=== PATIENT | male | born 1935 | race Caucasian/White ===

== ENCOUNTER → 2017-02-22 | Outpatient (CLI) | payer MEDICARE, OTHER ==
[~2017-02-22] MED LIST: CHOL10003; CYCL10TA9 PO; DIPH25TA31 PO; DIPH50CA PO; DOCU100T7 PO; ENLP10T; EZET1TAB44; FEBU40TA PO; FURO-125 PO; FURO20TA4 PO; GABA-488 PO; HYDR-3448 PO; LEVO750T39 PO; LISI-556 PO; LISI5TAB PO; MAGN250T13 PO; OMEP40CA36 PO; OTC ANTACIDS; OXYC-12 PO; OXYC-471 PO; OXYCONTIN PO; PNT40TEC PO; RANI150T15 PO; VIT D; VITA1TAB78 PO; VITAMIN B1 PO; VITAMIN B3 PO; VITAMIN D PO
--- NOTE | 2017-02-22 13:58 | Diagnostic Imaging Report ---
PROCEDURE: MRI lumbar spine. TECHNIQUE: Multiplanar, multisequence MRI of the lumbar spine was performed without contrast. INDICATION: Chronic low back pain. Right leg pain. FINDINGS: There is grade 1 retrolisthesis of L5 over S1. The vertebral body heights are preserved. There is severe disc height loss at L4/L5 level. Significant disc desiccation is seen at most levels. The cauda equina and conus medullaris appear grossly unremarkable. T12/L1: There is a diffuse disc bulge with no central canal or lateral recess stenosis. No foraminal narrowing. L1/L2: There is a diffuse disc bulge and bilateral mild facet hypertrophy. No central canal or lateral recess stenosis. No foraminal stenosis. L2/L3: There is a diffuse disc bulge. There is moderate to severe central canal stenosis reducing the AP dimension of the canal to 5.7 mm and bilateral moderate lateral recess stenosis, more prominent on the left. The foramina demonstrate mild to moderate stenosis bilaterally. L3/L4: There is a diffuse disc bulge. There is severe spinal canal stenosis with the central canal AP dimension reduced to 5.5 mm. There is severe lateral recess stenosis bilaterally, worse on the left. Moderate to severe facet hypertrophy is seen. The foramina demonstrates bilateral mild to moderate stenosis. L4/L5: There is a diffuse disc bulge and bilateral moderate to severe facet hypertrophy. There is moderate spinal canal stenosis with reduced AP dimension of the canal to 6.4 mm. Bilateral severe lateral recess stenosis is seen. There is also bilateral foraminal stenosis of moderate to severe degree. L5/S1: There is grade 1 retrolisthesis and a diffuse disc bulge. There is mild facet hypertrophy. No significant central canal stenosis. There is bilateral lateral recess stenosis, severe on the right side and moderate to severe on the left. There is bilateral foraminal stenosis, severe on the right and moderate to severe on the left. IMPRESSION: L5/S1 grade 1 retrolisthesis. There are significant disc and facet degenerative changes with multilevel high-grade spinal canal and foraminal stenosis. Dictated by: Dictated on workstation # [id number]
== END ==
LOC: RAD 09:05
PROVIDERS: ATTEND Orthopaedic Surgery
DX: M51.35 Other intervertebral disc degeneration, thoracolumbar region (principal); M48.06 Spinal stenosis, lumbar region; M43.17 Spondylolisthesis, lumbosacral region
CPT/HCPCS: 72148

== ENCOUNTER 2017-03-08 14:40 | Emergency (ER) | payer MEDICARE, OTHER ==
[~2017-03-08] VITALS: Ht 175.3 cm; Wt 113.4 kg
--- NOTE | 2017-03-08 15:54 | Diagnostic Imaging Report ---
INDICATION: Injury, shoulder pain. Three views were obtained. EXAMINATION: Right shoulder. FINDINGS: There is no fracture, dislocation or acute bony abnormality evident. However, there is degenerative disease involving the glenohumeral joint and there is fairly severe degenerative changes involving the acromioclavicular joint. Furthermore, the space between the acromion and the humeral head has become narrowed and I do suspect that the rotator cuff is at least partially, if not completely, torn. If further evaluation of the rotator cuff is desired, then MRI would be recommended. The soft tissues are unremarkable. IMPRESSION: 1. There is no evidence for an acute bony abnormality. 2. The appearance of the shoulder joint does suggest that the rotator cuff is at least partially, if not completely, torn. Additional considerations as above. Dictated by: Dictated on workstation # [id number]
--- NOTE | 2017-03-08 16:43 | ED Upper Extremity ---
General Chief Complaint: Upper Extremity Stated Complaint: RIGHT ARM INJ;FALL Nursing Triage Note: AMB TO ROOM WAS PULLING WEEDS TODAY LOST BALANCE AND FELL ON R SHOULDER. Nursing Sepsis Screen: No Definite Risk Source: patient Exam Limitations: no limitations History of Present Illness Time seen by provider: 16:37 Initial Comments The patient is a 81-year-old white male who reports that earlier this afternoon he was outside and pulling on a limb on an embankment. He felt himself slipping and ultimately fell. He put his right arm out to catch himself. He did so and also struck his shoulder on concrete behind him. He immediately had pain. He had a rotator cuff surgery done by Dr. Richard izquierdo about 1 year ago. Pain/Injury Location: right shoulder Method of Injury: fell Modifying Factors: Improves With Jarring Allergies and Home Medications Allergies Coded Allergies: morphine (Verified Allergy, Unknown, EXTREME CONFUSION, 11/02/15) Home Medications Cyclobenzaprine HCl 10 Mg Tablet, 10 MG PO DAILY, (Reported) Gabapentin 300 Mg Capsule, 300 MG PO DAILY, (Reported) Levofloxacin 750 Mg Tablet, 750 MG PO DAILY@1100 for 4 Days Prescribed by: ANGEL DONATO on 11/04/15 1315 Lisinopril 5 Mg Tablet, 5 MG PO DAILY, (Reported) Ranitidine HCl 150 Mg Tablet, 150 MG PO DAILY, (Reported) [Vitamin D] , 2 TAB PO DAILY, (Reported) Constitutional: see HPI EENTM: no symptoms reported Respiratory: no symptoms reported Cardiovascular: no symptoms reported Gastrointestinal: no symptoms reported Genitourinary: no symptoms reported Musculoskeletal: see HPI Skin: no symptoms reported Psychiatric/Neurological: No Symptoms Reported Past Aimfprj-Fhlurk-Tggxly Hx Patient Social History Alcohol Use: Occasionally Uses Recreational Drug Use: No Smoking Status: Current Everyday Smoker Recent Foreign Travel: No Contact w/Someone Who Travel: No Recent Infectious Disease Expo: No Recent Hopitalizations: Yes Surgeries HX Surgeries: Yes (FINGER AMPUTATION, COLECTOMY, BLEEDING ULCER, ) Respiratory Hx Respiratory Disorders: No Cardiovascular Hx Cardiac Disorders: Yes Cardiac Disorders: Hypertension Neurological Hx Neurological Disorders: No Reproductive System Hx Reproductive Disorders: No Sexually Transmitted Disease: No Genitourinary Hx Genitourinary Disorders: No Gastrointestinal Hx Gastrointestinal Disorders: Yes (ULCERS, HX BOWEL OBSRUCTION-10YRS AGO) Gastrointestinal Disorders: Gastroesophageal Reflux Musculoskeletal Hx Musculoskeletal Disorders: No Endocrine Hx Endocrine Disorders: No HEENT HX ENT Disorders: Yes (WEARS GLASSES, TOP DENTURE) Loss of Vision: Bilateral Hearing Impairment: Denies Cancer Hx Cancer: No Psychosocial Hx Psychiatric Problems: No Integumentary HX Skin/Integumentary Disorder: No Blood Transfusions Hx Blood Disorders: No Adverse Reaction to a Blood Tr: No (HAD BLOOD WITH GI BLEED, NO PROBLEMS) Family Medical History Significant Family History: No Pertinent Family Hx Physical Exam Vital Signs Vital Sign - Last 12Hours 03/08/17 14:45 Temp 97.2 Pulse 73 Resp 18 Capillary Refill : Less Than 3 Seconds General Appearance: mild distress HEENT: normal ENT inspection Neck: full range of motion Cardiovascular: normal peripheral pulses, regular rate, rhythm, no edema, no gallop, no JVD, no murmur Respiratory: chest non-tender, lungs clear, normal breath sounds, no respiratory distress, no accessory muscle use Comments There is pain to passive range of motion both with anterior and posterior extension. The patient is able to hold his arm in abduction after is placed in a 90 abduction passively Progress/Results/Core Measures Results/Orders My Orders Orders - AMANDA NAIR MD Shoulder, Right, 3 Views (03/08/17 15:06) Vital Signs/I&O Vital Sign - Last 12Hours 03/08/17 14:45 Temp 97.2 Pulse 73 Resp 18 B/P (MAP) Departure Impression Impression: Primary Impression: right shoulder injury Disposition: 01 HOME, SELF-CARE Condition: Stable/Unchanged Departure-Patient Inst. Decision time for Depature: 16:42 Referrals: ANGEL DONATO MD (PCP/Family) Primary Care Physician Add. Discharge Instructions: All discharge instructions reviewed with patient and/or family. Voiced understanding. Use ice pack intermittently to right shoulder. Use your shoulder but let pain be your guide. Use Tylenol 650 for pain but no more than 4 doses daily If pain still a problem in 2 weeks you might consider seeing Dr. Dr. Ramos for reevaluation AMANDA NAIR MD Mar 08, 2017 16:43
[2017-03-08 16:45] VITALS: BP 145/70
== END 2017-03-08 16:50 | disposition home or self-care (01) ==
LOC: EDUNIT# 14:40 → ER 14:42
DX: S49.91XA Unspecified injury of right shoulder and upper arm, initial encounter (principal); I10 Essential (primary) hypertension; K21.9 Gastro-esophageal reflux disease without esophagitis; F17.200 Nicotine dependence, unspecified, uncomplicated; Z90.49 Acquired absence of other specified parts of digestive tract; Z87.19 Personal history of other diseases of the digestive system; Z89.029 Acquired absence of unspecified finger(s); W01.198A Fall on same level from slipping, tripping and stumbling with subsequent striking against other object, initial encounter
CPT/HCPCS: 73030; 99282

== ENCOUNTER → 2017-07-12 | Outpatient (CLI) | payer MEDICARE, OTHER | LOC: CARD 12:39 | PROVIDERS: ATTEND Physician Assistant | DX: I65.23 Occlusion and stenosis of bilateral carotid arteries (principal); I10 Essential (primary) hypertension; E78.2 Mixed hyperlipidemia; R06.02 Shortness of breath | CPT/HCPCS: 93306 ==

== ENCOUNTER → 2019-02-11 | Outpatient (CLI) | payer MEDICARE, OTHER ==
[~2019-02-11] MED LIST changes: +HOLD METFORMIN - RECEIVED CONTRAST 20 ML VIAL IV SCH; +IOHEXOL 350 MG/ML 100 ML (OMNIPAQUE 350) VIAL IV ONE; +NS 100 ML (IVPB) BAG IV ONE; -RANI150T15 PO; +RANI150T46 PO
--- NOTE | 2019-02-11 12:51 | Diagnostic Imaging Report ---
PROCEDURE: CT neck soft tissue with contrast. TECHNIQUE: Multiple contiguous axial images were obtained through the neck after the administration of contrast. Auto Exposure Controls were utilized during the CT exam to meet ALARA standards for radiation dose reduction. INDICATION: "Possible mass." Patient has history of smoking and neck pain, no description of any palpable abnormality on physical exam. The nasopharynx, the oropharynx and hypopharynx appeared unremarkable. The prevertebral and retropharyngeal spaces unremarkable. The parotid and submandibular glands as well as thyroid glands unremarkable. No cervical fluid collection. There are substantial atherosclerotic vascular calcifications about the common and internal carotid arterial systems. No fluid collection, no lymphadenopathy. No findings of hemorrhage or abscess. No airway narrowing, visualized apices and thoracic inlet nonacute. There is substantial degenerative changes of the cervical spine most severe at C4-5, C5-6 and C6-C7 levels with a grade 1 degenerative listhesis, hypertrophic facet arthrosis and at least moderate magnitude central canal and foraminal stenoses on a chronic osseous basis. IMPRESSION: No identifiable mass or adenopathy. 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 No airway embarrassment, fluid collection or acute finding. Dictated by: Dictated on workstation # [id number]
== END ==
LOC: RAD 11:37
PROVIDERS: ATTEND Internal Medicine
DX: M47.812 Spondylosis without myelopathy or radiculopathy, cervical region (principal); M48.02 Spinal stenosis, cervical region; M43.12 Spondylolisthesis, cervical region; I65.29 Occlusion and stenosis of unspecified carotid artery; Z87.891 Personal history of nicotine dependence
CPT/HCPCS: 70491

== ENCOUNTER → 2019-05-30 | Outpatient (CLI) | payer MEDICARE, OTHER ==
[~2019-05-30] MED LIST changes: -HOLD METFORMIN - RECEIVED CONTRAST 20 ML VIAL IV SCH; -IOHEXOL 350 MG/ML 100 ML (OMNIPAQUE 350) VIAL IV ONE; -NS 100 ML (IVPB) BAG IV ONE; +RANI-613 PO; -RANI150T46 PO
--- NOTE | 2019-05-30 18:29 | Diagnostic Imaging Report ---
PROCEDURE: CT head without contrast. TECHNIQUE: Multiple contiguous axial images were obtained through the brain without the use of intravenous contrast. Auto Exposure Controls were utilized during the CT exam to meet ALARA standards for radiation dose reduction. DATE: May 30, 2019. COMPARISON: CT head August 09, 2015. INDICATION: 83-year-old male, cognitive decline. FINDINGS: There is proportional prominence of the ventricles and CSF spaces consistent with mild to moderate cerebral volume loss. There is no mass effect or midline shift. There is no acute intracranial hemorrhage. There is no abnormal extra-axial fluid collection. The visualized portions of the paranasal sinuses, mastoid air cells and middle ears are well aerated. IMPRESSION: 1. Mild to moderate cerebral volume loss. 2. No identified acute intracranial abnormality. Dictated on workstation # [id number]
== END ==
LOC: RAD 15:17
PROVIDERS: ATTEND Internal Medicine
DX: G93.89 Other specified disorders of brain (principal); R41.81 Age-related cognitive decline
CPT/HCPCS: 70450

== ENCOUNTER → 2019-06-26 | Outpatient (CLI) | payer MEDICARE, OTHER ==
[2019-06-26 14:06] LABS: ALBUMIN 4.1 GM/DL (3.2-4.5); BILIRUBIN,TOTAL 0.6 MG/DL (0.1-1.0); CALCIUM 9.6 MG/DL (8.5-10.1); CREATININE SERUM 1.16 MG/DL (0.60-1.30); POTASSIUM 4.4 MMOL/L (3.6-5.0); TOTAL PROTEIN 6.1 GM/DL (6.4-8.2)
== END ==
LOC: LAB 13:30
PROVIDERS: ATTEND Internal Medicine Cardiovascular Disease
DX: E78.2 Mixed hyperlipidemia (principal); N42.9 Disorder of prostate, unspecified; R07.9 Chest pain, unspecified; R06.02 Shortness of breath
CPT/HCPCS: 36415; 80053; 80061; 84153

== ENCOUNTER → 2019-10-02 | Outpatient (CLI) | payer MEDICARE, OTHER | LOC: CARD 09:28 | PROVIDERS: ATTEND Physician Assistant | DX: I08.2 Rheumatic disorders of both aortic and tricuspid valves (principal); I10 Essential (primary) hypertension; E78.2 Mixed hyperlipidemia | CPT/HCPCS: 93306 ==

== ENCOUNTER → 2019-12-08 | Outpatient (CLI) | payer MEDICARE, OTHER ==
--- NOTE | 2019-12-08 12:29 | Diagnostic Imaging Report ---
CLINICAL INDICATION: Patient states he has low back pain with no known injury. EXAM: MRI of the lumbar spine performed without IV contrast. Sequences include sagittal T2, sagittal T1, sagittal T2 fat sat, coronal T2, and axial T2. COMPARISON: MRI of the lumbar spine without contrast dated 02/22/2017. FINDINGS: There is no acute lumbar spine fracture. There is Modic type I displaced changes involving the L2-L3 and L4-L5 levels. There are hypertrophic spurs and facet arthropathy involving the lumbar spine. The visualized portions of the distal thoracic spinal cord, conus medullaris, and cauda equina nerve roots are unremarkable. The conus medullaris tip is seen at the lower L1 vertebral body level. There is no significant paraspinal soft tissue abnormality. There is interval increased size of a cystic structure involving the posterior aspect of the upper to mid right kidney which currently measures 1.5 cm compared to the prior study, previously measured 7 mm. There is now low T2 signal along the periphery which may represent calcification or complexity. T12-L1: Stable minimal posterior disc bulge. There is no significant central spinal canal or neural foramen narrowing. L1-L2: Stable diffuse disc bulge with disc spurs extending posteriorly and into the foraminal regions bilaterally. There is stable [id number] bilateral neural foramen narrowing and mild central canal narrowing. L2-L3: Stable diffuse disc bulge with moderate loss of disc space height. There are stable disc spurs extending posteriorly and into the foraminal regions bilaterally. There is stable moderate bilateral facet arthropathy/hypertrophy and ligamentum flavum buckling. There is stable severe central canal stenosis and stable severe bilateral neural foramen narrowing. L3-L4: Stable diffuse disc bulge with disc spurs extending posteriorly and into the foraminal regions bilaterally. There is severe bilateral facet arthropathy/hypertrophy and ligamentum flavum buckling. There is stable severe central canal stenosis and bypmeovj-ih-[id number] bilateral neural foramen narrowing. L4-L5: Stable diffuse disc bulge with severe loss of disc space height. There is stable disc spurs extending posteriorly and into the foraminal regions bilaterally. There is stable severe bilateral facet arthropathy and ligamentum flavum buckling. There are stable severe central canal stenosis and severe bilateral neural foramen narrowing. L5-S1: Again seen diffuse disc bulge with slightly increased size of the disc spurs extending into the foraminal regions bilaterally. There is stable moderate bilateral facet arthropathy. There is no significant central canal narrowing. There is severe bilateral neural foramen narrowing which has progressed. IMPRESSION: 1: There is progression of severe degenerative disc disease at the L5-S1 level with diffuse disc bulge, disc spurs, and facet arthropathy. There is severe L5-S1 bilateral neural foramen narrowing which has progressed. 2: The remainder of the severe lumbar spine degenerative disc disease otherwise is not significantly changed in interim. 3: There is progression of slight complexity and increased size of a cyst involving the mid to upper portion of the right kidney. There is progression of peripheral low T2 signal which may represent calcification or proteinaceous material. Ultrasound of the kidneys would better evaluate. Dictated by: Dictated on workstation # [id number]
== END ==
LOC: RAD 09:44
PROVIDERS: ATTEND Nurse Practitioner
DX: M47.816 Spondylosis without myelopathy or radiculopathy, lumbar region (principal); M51.37 Other intervertebral disc degeneration, lumbosacral region
CPT/HCPCS: 72148

== ENCOUNTER 2023-02-15 11:03 | Inpatient (IN) | payer MEDICARE, OTHER ==
[2023-02-15] VITALS (12 sets, daily range): BP systolic 70–111; BP diastolic 33–84
[~2023-02-15] VITALS: Ht 172 cm; Wt 62.8 kg
[~2023-02-15 11:03] MED LIST changes: +CYCL10TA25 PO; -CYCL10TA9 PO; -DIPH50CA PO; +DIPH50CA33 PO; +LEVO750T PO; -LEVO750T39 PO; -LISI-556 PO; +LISI5TAB20 PO; -OXYC-471 PO; +OXYC1TAB11 PO
--- NOTE | 2023-02-15 11:35 | ED General ---
General Chief Complaint: General Problems/Pain Stated Complaint: ALTERED MENTAL STATUS Nursing Triage Note: PT TO ED BY [facility] WITH C/O WEAKNESS. EMS REPORTS PT HAS BEEN WEAK TODAY AND HAS HAD BLACK TARRY STOOLS. EMS REPORTS PT WENT UNRESPONSIVE WHILE TRANSFERRING FROM LAWN CHAIR TO CART AND REMAINED UNRESPONSIVE FOR APPROX 10 MIN. PT HAS HX DEMENTIA. PT DENIES ABD PAIN, STATES HE FEELS "OUT OF IT." Source of Information: Family () Exam Limitations: Other (dementia) History of Present Illness Date Seen by Provider: Feb 15, 2023 Time Seen by Provider: 11:18 Initial Comments Juan Ramon is an 87-year-old male who presents to the emergency department by ambulance from home chief complaint of generalized weakness and a period of unresponsiveness this afternoon. He apparently has significant dementia and is unable to provide any HPI, review of systems, past medical family or social history. He does have a history of COPD and is on chronic oxygen supplementation. He is currently complaining of primarily left wrist pain and is in a Velcro wrist splint. This reports the patient was outside and moving to another chair and had about 10 minutes of poor responsiveness. He is alert on arrival and doing his best to answer questions but is quite confused. He is significantly pale. He is not tachycardic but is hypotensive with a systolic blood pressure in the 80s. Heart is regular, he has significant cardiac murmur. Abdomen is soft, nondistended. No obvious outward signs of trauma other than the brace to the left wrist. The brace was removed and he has tenderness with this as well as ecchymosis and swelling to the volar R distal left forearm. Multiple superficial healing abrasions to the hand. His arrived after his arrival. She provides further history that he is always significantly confused with very poor short-term memory. She actually reported a fall that occurred yesterday however on calling the orthopedic office where the patient was seen this was on February 07. The was uncertain if he actually had a break in his arm or not. Reviewing the medical record the patient actually sustained a nondisplaced fracture of the distal left radius. She states that he has had very black stools in the last 24 hours. He does take ibuprofen/Tylenol. He is not on chronic anticoagulation. No reported vomiting. The patient is not an alcoholic. He has smoked for a very long time and uses breathing treatments at home. Oxygen dependent. No known history of coronary artery disease. He has had prior abdominal surgery, hernia repair as well as partial colectomy. Timing/Duration: 4-6 Hours Severity: Severe Associated Systoms: Malaise, Weakness Allergies and Home Medications Allergies Coded Allergies: morphine (Verified Allergy, Unknown, EXTREME CONFUSION, 11/02/15) Patient Home Medication List Home Medication List Reviewed: Yes Cyclobenzaprine HCl (Cyclobenzaprine HCl) 10 Mg Tablet, 10 MG PO DAILY, (Reported) Entered as Reported by: VILLA DELGADO on 05/24/15 1149 Gabapentin (Gabapentin) 300 Mg Capsule, 300 MG PO DAILY, (Reported) Entered as Reported by: EDUARDO RETANA on 11/02/15 1634 Levofloxacin (Levofloxacin) 750 Mg Tablet, 750 MG PO DAILY@1100 Prescribed by: ANGEL DONATO on 11/04/15 1315 Lisinopril (Lisinopril) 5 Mg Tablet, 5 MG PO DAILY, (Reported) Entered as Reported by: EDUARDO RETANA on 11/02/15 1634 Ranitidine HCl (Zantac) 150 Mg Tablet, 150 MG PO DAILY, (Reported) Entered as Reported by: EDUARDO RETANA on 11/02/15 1638 [Vitamin D] , 2 TAB PO DAILY, (Reported) Entered as Reported by: EDUARDO RETANA on 11/02/15 1634 Review of Systems Review of Systems Constitutional: see HPI EENTM: no symptoms reported Respiratory: no symptoms reported Cardiovascular: other (cough (chronic)) Gastrointestinal: melena (per ) Genitourinary: no symptoms reported Musculoskeletal: joint pain (left wrist) Skin: no symptoms reported Psychiatric/Neurological: Other ("out of it") All Other Systems Reviewed Negative Unless Noted: Yes Past Mcpabxg-Rwokum-Jdfqyv Hx Past Medical History Surgeries: Yes (FINGER AMPUTATION, COLECTOMY, BLEEDING ULCER, ) Respiratory: No Cardiac: Yes Hypertension Neurological: No Reproductive Disorders: No Sexually Transmitted Disease: No Gastrointestinal: Yes (ULCERS, HX BOWEL OBSRUCTION-10YRS AGO) Gastroesophageal Reflux Musculoskeletal: No Endocrine: No Loss of Vision: Bilateral Hearing Impairment: Denies Cancer: No Psychosocial: No Integumentary: No Blood Disorders: No Adverse Reaction/Blood Tranf: No (HAD BLOOD WITH GI BLEED, NO PROBLEMS) Family Medical History No Pertinent Family Hx Physical Exam Vital Signs Vital Signs - First Documented 02/15/23 11:05 Temp 35.1 Pulse 67 Resp 18 B/P (MAP) 84/41 (55) Pulse Ox 100 O2 Delivery Nasal Cannula O2 Flow Rate 4.00 Capillary Refill : Height, Weight, BMI Height: 5'9.00" Weight: 250lbs. 3.0oz. 113.099339nk; 20.00 BMI Method:Stated General Appearance: No Apparent Distress, Chronically ill, Thin Eyes: Bilateral Eye Conjunctivae Pale HEENT: PERRL/EOMI, Pale Conjunctivae (L), Pale Conjunctivae (R), Other (dry mucosa) Neck: Normal Inspection Respiratory: No Accessory Muscle Use, No Respiratory Distress, Decreased Breath Sounds, Other (coarse wet cough; no distress) Cardiovascular: Regular Rate, Rhythm, Systolic Murmur Gastrointestinal: Normal Bowel Sounds, Non Tender, Soft Rectal: Normal Rectal Tone, Black Stool, Other (no masses or tenderness) Genital/Rectal: Normal Genital Exam Back: Normal Inspection Extremity: Normal Inspection, Normal Range of Motion, Other (left wrist in velcro brace; multiple superficial abrasions to volar left wrist with ecchymoses) Neurologic/Psychiatric: Alert, No Motor/Sensory Deficits, Normal Mood/Affect, Disoriented, Other (confused; repeatedly asking questions "what happened"; poor memory) Skin: Warm/Dry, Pallor Progress/Results/Core Measures Suspected Sepsis SIRS Temperature: Pulse: 67 Respiratory Rate: 18 Blood Pressure 84 /41 Mean: 55 Laboratory Tests 02/15/23 11:16: Creatinine 1.44H, Total Bilirubin 0.3 Results/Orders Lab Results Laboratory Tests Test 02/15/23 11:16 Range/Units White Blood Count 11.7 H 4.3-11.0 10^3/uL Red Blood Count 1.35 L 4.30-5.52 10^6/uL Hemoglobin 4.6 *L 13.3-17.7 g/dL Hematocrit 15 *L 40-54 % Mean Corpuscular Volume 112 H 80-99 fL Mean Corpuscular Hemoglobin 34 25-34 pg Mean Corpuscular Hemoglobin Concent 31 L 32-36 g/dL Red Cell Distribution Width 14.0 10.0-14.5 % Platelet Count 145 130-400 10^3/uL Mean Platelet Volume 12.1 9.0-12.2 fL Immature Granulocyte % (Auto) 1 % Neutrophils (%) (Auto) 83 H 42-75 % Lymphocytes (%) (Auto) 12 12-44 % Monocytes (%) (Auto) 4 0-12 % Eosinophils (%) (Auto) 0 0-10 % Basophils (%) (Auto) 0 0-10 % Neutrophils # (Auto) 9.7 H 1.8-7.8 10^3/uL Lymphocytes # (Auto) 1.3 1.0-4.0 10^3/uL Monocytes # (Auto) 0.5 0.0-1.0 10^3/uL Eosinophils # (Auto) 0.0 0.0-0.3 10^3/uL Basophils # (Auto) 0.0 0.0-0.1 10^3/uL Immature Granulocyte # (Auto) 0.1 0.0-0.1 10^3/uL Sodium Level 144 135-145 MMOL/L Potassium Level 4.7 3.6-5.0 MMOL/L Chloride Level 113 H 98-107 MMOL/L Carbon Dioxide Level 14 L 21-32 MMOL/L Anion Gap 17 H 5-14 MMOL/L Blood Urea Nitrogen 113 *H 7-18 MG/DL Creatinine 1.44 H 0.60-1.30 MG/DL Estimat Glomerular Filtration Rate 48 BUN/Creatinine Ratio 78 Glucose Level 148 H 70-105 MG/DL Calcium Level 8.8 8.5-10.1 MG/DL Corrected Calcium 9.4 8.5-10.1 MG/DL Total Bilirubin 0.3 0.1-1.0 MG/DL Aspartate Amino Transf (AST/SGOT) 35 H 5-34 U/L Alanine Aminotransferase (ALT/SGPT) 27 0-55 U/L Alkaline Phosphatase 68 40-136 U/L Total Protein 4.8 L 6.4-8.2 GM/DL Albumin 3.2 3.2-4.5 GM/DL My Orders Orders - BERRY MAX MD Ed Iv/Invasive Line Start (02/15/23 11:30) Cbc With Automated Diff (02/15/23 11:30) Comprehensive Metabolic Panel (02/15/23 11:30) Type And Screen (02/15/23 11:30) Fecal Occult Bedside (02/15/23 11:30) Ua Culture If Indicated (02/15/23 11:30) Chest 1 View, Ap/Pa Only (02/15/23 11:30) Wrist, Right, 3 Views Or More (02/15/23 11:35) Red Cells Leukocytes Reduced (02/15/23 11:54) Pantoprazole Injection (Protonix Injecti (02/15/23 12:15) Ns (Ivpb) 100 Ml (S... W/Pantoprazole In (02/15/23 12:15) Ns Iv 500 Ml (Sodium Chloride 0.9%) (02/15/23 12:16) Vital Signs/I&O 02/15/23 02/15/23 02/15/23 02/15/23 11:05 12:24 12:29 12:33 Temp 35.1 35.8 35.8 35.9 Pulse 67 69 67 68 Resp 18 20 20 20 B/P (MAP) 84/41 (55) 84/62 95/36 82/33 Pulse Ox 100 98 100 100 O2 Delivery Nasal Cannula Nasal Cannula Nasal Cannula Nasal Cannula O2 Flow Rate 4.00 4.00 4.00 4.00 02/15/23 02/15/23 02/15/23 12:39 13:41 13:46 Temp 35.9 35.8 Pulse 65 65 70 Resp 19 20 19 B/P (MAP) 70/35 111/84 91/47 Pulse Ox 100 99 99 O2 Delivery Nasal Cannula Nasal Cannula Nasal Cannula O2 Flow Rate 4.00 4.00 4.00 Capillary Refill : Blood Pressure Mean: 55 Progress Note #1: Time: 11:56 Progress Note NOtified of Hgb of 4 and Hct of 15 by LUZ Pantoja Progress Note #2: Time: 12:15 Progress Note Seen and evaluated by me. Evaluation today includes physical exam, CBC, type and screen, Chem-12, UA, single view chest x-ray, x-rays of the left wrist, fecal occult blood testing, coags. Pertinent physical exam findings elderly appearing frail gentleman in no acute distress. He is confused with poor memory. He is hypotensive with a systolic blood pressure in the 80s, pulse in the 70s. He is oxygen supplemented at 3 L with 96% oxygen saturations. He is afebrile. He has significantly pale conjunctive a, fairly dry oral mucosa. Heart is regular with a loud holosystolic murmur. He has a coarse wet cough with diminished breath sounds at the bases no active wheezing. No respiratory distress. Abdomen is soft and nontender. Rectal exam reveals copious amounts of black stool at the rectum that is Hemoccult positive. No lower extremity edema. He is wearing a left Velcro wrist splint with swelling to the wrist abrasions on the hand and ecchymosis on the distal volar aspect of the wrist. He is neurovascularly intact to the left hand. Differential diagnosis profound anemia, GI bleed, concern for acute renal failure, dehydration, left wrist fracture Labs, imaging independently reviewed and interpreted by me. The patient CBC shows WBC of 11.7, Hgb 4.6 with RBC of 1.35. Hct is 15. Platelets are 145. 83% neutrophils. A sodium of 144, potassium of 4.7. Chloride 113 bicarb 14, BUN 113, creatinine 1.44 glucose of 148. His anion gap is 17. AST 35. PT 16.2 INR 1.3 PTT 29. His urine is clear of infection. His chest x-ray shows an abnormal density in the right apex per radiology read. His left wrist x-ray shows a nondisplaced distal radius fracture. Patient is treated in the emergency department with IV normal saline followed by type-specific blood transfusion. He responded well to fluids and blood with a systolic blood pressure in the 90s at admission. IV protonix bolus and drip started. I discussed the case with Dr. Anahy zapien for general surgery who will consult regarding GI bleed. Case was also discussed with Dr. Lennie zapien for the hospitalist service who will monitor the patient and manage the patient in the ICU. Spoke with the patient and his regarding resuscitative measures, the patient states "I am not ready to yet" and desires to remain a full code. Diagnostic Imaging Diagonstic Imaging: Xray Comments [facility] [place], [place] NAME: JUAN RAMON URIAS [facility] REC#: [id number] PT STATUS: ADM IN : 1935 PHYSICIAN: BERRY MAX MD ADMIT DATE: 02/15/23/ICU Signed Date of Exam:02/15/23 WRIST, RIGHT, 3 VIEWS OR MORE INDICATION: Wrist pain. FINDINGS: There is an oblique fracture through the distal radius. This is minimally displaced. There are degenerative changes at the base of the first metacarpal. There is no other fracture or dislocation. IMPRESSION: Minimally displaced oblique fracture through the distal radius. Additionally, there is some degenerative change at the base of the first metacarpal. Dictated by: Dictated on workstation # [id number] Dict: 02/15/23 1203 Trans: 02/15/23 1548 [id number] Interpreted by: JUAN RAMON FALL MD Electronically signed by: JUAN RAMON FALL MD 02/15/23 1548 Diagonstic Imaging: Xray Comments [facility] [place], [place] NAME: JUAN RAMON URIAS [facility] REC#: [id number] PT STATUS: ADM IN : 1935 PHYSICIAN: BERRY MAX MD ADMIT DATE: 02/15/23/ICU Signed Date of Exam:02/15/23 CHEST 1 VIEW, AP/PA ONLY INDICATION: Weakness. COMPARISON: Exam is compared with a chest x-ray 11/02/2015. FINDINGS: There is increased abnormal density at the right pulmonary apex. This is a change from prior. While this may reflect apical pneumonia, it warrants radiographic follow-up to confirm resolution as mass having developed could not be excluded. Hilar and mediastinal contours are normal. Previously, there was a left lower lobe and lingular infiltrate that has resolved. No failure pattern. No pneumothorax. IMPRESSION: 1. New abnormal density in the right pulmonary apex; this may reflect an acute infiltrate. The change itself is felt to warrant radiographic follow-up. Repeat exam within two weeks' time to confirm its resolution recommended. 2. No other abnormality with interval resolution of a prior left basilar pneumonia. Dictated by: Dictated on workstation # [id number] Dict: 02/15/23 1158 Trans: 02/15/23 1428 [id number] Interpreted by: JOSÉ MIGUEL RIVERA Electronically signed by: JOSÉ MIGUEL RIVERA 02/15/23 1428 Critical Care Note Critical Care Start Time: 11:18 Stop Time: 13:00 Total Time (minutes) 40min critical care time in the eval and management of this elderly hypotensive male who is anemic. Time includes initial eval and management of hypotension with fluid resuscitation; review and interpretation of labs; blood transfusions and monitoring. Serial re-evaluations; review of old medical record. Discussion with outside provider (for orthopedic history). Discussion with Dr Higginbotham (gener al surgery) and Dr Hogue (hospitalist). Discussions with family. Departure Communication (Admissions) Time/Spoke to Admitting Phy: 12:[address] Hogue (hospitalist) Time/Spoke to Consulting Phy: 12:[address] Higginbotham (surgery) Impression Primary Impression: GI bleed Qualified Codes: K92.2 - Gastrointestinal hemorrhage, unspecified Additional Impressions: Anemia Qualified Codes: D64.9 - Anemia, unspecified COPD (chronic obstructive pulmonary disease) Qualified Codes: J44.9 - Chronic obstructive pulmonary disease, unspecified Disposition: ADMITTED INPATIENT Condition: Critical Admissions Decision to Admit Reason: Admit from ER (General) Decision to Admit/Date: Feb 15, 2023 Time/Decision to Admit Time: 11:56 Departure-Patient Inst. Referrals: ANGEL DONATO MD (PCP/Family) Primary Care Physician Copy Copies To 1: ANGEL DONATO MD, KATHRYN M MD Feb 15, 2023 11:35
[2023-02-15 11:36] LABS: BASOPHILS % (AUTO) 0 % (0-10); EOSINOPHILS % (AUTO) 0 % (0-10); LYMPHOCYTES # (AUTO) 1.3 10^3/uL (1.0-4.0); LYMPHOCYTES % (AUTO) 12 % (12-44); MEAN CORPUSCULAR HEMOGLOBIN 34 pg (25-34); MEAN CORPUSCULAR HGB CONC 31 g/dL (32-36); MEAN CORPUSCULAR VOLUME 112 fL (80-99); MEAN PLATELET VOLUME 12.1 fL (9.0-12.2); MONOCYTES # (AUTO) 0.5 10^3/uL (0.0-1.0); MONOCYTES % (AUTO) 4 % (0-12); NEUTROPHILS # (AUTO) 9.7 10^3/uL (1.8-7.8); NEUTROPHILS % (AUTO) 83 % (42-75); PLATELET COUNT 145 10^3/uL (130-400); WHITE BLOOD COUNT 11.7 10^3/uL (4.3-11.0)
[2023-02-15 11:40] LABS: ALBUMIN 3.2 GM/DL (3.2-4.5); HEMATOCRIT 15 % (40-54); HEMOGLOBIN 4.6 g/dL (13.3-17.7); POTASSIUM 4.7 MMOL/L (3.6-5.0)
[2023-02-15 11:41] LABS: CALCIUM 8.8 MG/DL (8.5-10.1)
[2023-02-15 11:42] LABS: TOTAL PROTEIN 4.8 GM/DL (6.4-8.2)
[2023-02-15 11:44] LABS: BILIRUBIN,TOTAL 0.3 MG/DL (0.1-1.0)
[2023-02-15 11:46] LABS: CREATININE SERUM 1.44 MG/DL (0.60-1.30)
--- NOTE | 2023-02-15 12:07 | Diagnostic Imaging Report ---
INDICATION: Wrist pain. FINDINGS: There is an oblique fracture through the distal radius. This is minimally displaced. There are degenerative changes at the base of the first metacarpal. There is no other fracture or dislocation. IMPRESSION: Minimally displaced oblique fracture through the distal radius. Additionally, there is some degenerative change at the base of the first metacarpal. Dictated by: Dictated on workstation # [id number]
--- NOTE | 2023-02-15 12:12 | Diagnostic Imaging Report ---
INDICATION: Weakness. COMPARISON: Exam is compared with a chest x-ray 11/02/2015. FINDINGS: There is increased abnormal density at the right pulmonary apex. This is a change from prior. While this may reflect apical pneumonia, it warrants radiographic follow-up to confirm resolution as mass having developed could not be excluded. Hilar and mediastinal contours are normal. Previously, there was a left lower lobe and lingular infiltrate that has resolved. No failure pattern. No pneumothorax. IMPRESSION: 1. New abnormal density in the right pulmonary apex; this may reflect an acute infiltrate. The change itself is felt to warrant radiographic follow-up. Repeat exam within two weeks' time to confirm its resolution recommended. 2. No other abnormality with interval resolution of a prior left basilar pneumonia. Dictated by: Dictated on workstation # [id number]
[2023-02-15] MEDS ORDERED: PANTOPRAZOLE INJECTION 200 MG in NS (IVPB) 100 ML 100 ML IV SCH (12:15)
[2023-02-15] MEDS ORDERED: PANTOPRAZOLE 40 MG (PROTONIX) VIAL IV ONE (12:15)
[2023-02-15] MEDS ORDERED: NS IV 500 ML 500 ML ONE ×2 (12:16→14:00)
[2023-02-15] MEDS ORDERED: fentaNYL INJECTION 100 MCG/2 ML VIAL IV PRN (14:15)
[2023-02-15] MEDS ORDERED: ONDANSETRON 4 MG/2 ML (SDV) Z0FRAN IV PRN (14:15)
[2023-02-15] MEDS ORDERED: RT-ALBUTEROL SULF 2.5 MG/3 ML PRE-MIX VIAL INH PRN (14:15)
--- NOTE | 2023-02-15 14:57 | History & Physical-Hospitalist ---
History of Present Illness HPI/Chief Complaint Patient is an 87-year-old male with past medical history of dementia who presents to the emergency department due to syncope. He is unable to provide much history and defers to his . He has no complaints at this time. His states that he fell 2 days ago she believes. He has been getting more weak and she thought this was due to his back pain. He had a syncopal episode this morning so decided to bring him in for evaluation. In the emergency department he was found to have a hemoglobin of 4.6 and was having black tarry stools. His is unaware how long this has been going on but did notice darker stools this morning. He is unable to tell me when this started. He does not believe he has ever had a colonoscopy. He also tells me he has had no surgeries though he has 2 large surgical scars on his abdomen. When asked about these he is unable to recall what surgeries he has had. He was given 2 units of blood and was admitted to the ICU for further management. Source: patient, family Exam Limitations: clinical condition Date Seen 02/15/23 Time Seen by a Provider: 14:41 Attending Physician Brant Moreno MD PCP Admitting Physician: Chet Hogue MD Attending Physician: Chet Hogue MD Referring Physician Date of Admission Feb 15, 2023 at 13:47 Home Medications & Allergies Home Medications Reviewed patient Home Medication Reconciliation performed by pharmacy medication reconciliations automated access systems technician and/or nursing. Patients Allergies have been reviewed. Allergies Allergies Coded Allergies morphine (Verified Allergy, Unknown, EXTREME CONFUSION, 11/02/15) Past Etvjhfe-Lrwkzr-Jwyhsr Hx Patient Social History Marrital Status: Employed/Student: retired Tobacco Use?: Yes Tobacco type used: Cigarettes Smoking Status: Current Everyday Smoker Use of E-Cig and/or Vaping dev: No Substance use?: No Alcohol Use?: No Pt feels they are or have been: No Immunizations Up To Date First/Initial COVID19 Vaccinat: X2 Current Status Advance Directives: No Communicates: Verbally Primary Language: Armenian Preferred Spoken Language: Armenian Is interpretation needed?: No Past Medical History Surgeries: Abdominal Hypertension Sexually Transmitted Disease: No Gastroesophageal Reflux Loss of Vision: Bilateral Hearing Impairment: Denies Blood Disorders: No Adverse Reaction/Blood Tranf: No (HAD BLOOD WITH GI BLEED, NO PROBLEMS) Family Medical History Reviewed Nursing Family Hx No Pertinent Family Hx Review of Systems Constitutional: see HPI Physical Exam Physical Exam Vital Signs Vital Signs - First Documented 02/15/23 11:05 Temp 35.1 Pulse 67 Resp 18 B/P (MAP) 84/41 (55) Pulse Ox 100 O2 Delivery Nasal Cannula O2 Flow Rate 4.00 Capillary Refill : Height, Weight, BMI Height: 5'9.00" Weight: 250lbs. 3.0oz. 113.001463yv; 20.00 BMI Method:Stated General Appearance: No Apparent Distress, Chronically ill, Thin Respiratory: Lungs Clear, No Respiratory Distress Cardiovascular: Regular Rate, Rhythm, No Murmur Gastrointestinal: Normal Bowel Sounds, Soft, Other (midline surgical scar on abd and linear scar in RLQ) Extremity: No Calf Tenderness, No Pedal Edema Neurologic/Psychiatric: Alert, Other (oriented to person and place- pleasasntly confused otherwise) Results Results/Procedures Labs Laboratory Tests 02/15/23 11:16 02/15/23 16:17 02/15/23 22:00 02/16/23 05:00 Patient resulted labs reviewed. Imaging: Reviewed Imaging Report Imaging [facility] [place], [place] NAME: SAMUEL URIAS [facility] REC#: [id number] PT STATUS: ADM IN : 1935 PHYSICIAN: BERRY MAX MD ADMIT DATE: 02/15/23/ICU Signed Date of Exam:02/15/23 CHEST 1 VIEW, AP/PA ONLY INDICATION: Weakness. COMPARISON: Exam is compared with a chest x-ray 11/02/2015. FINDINGS: There is increased abnormal density at the right pulmonary apex. This is a change from prior. While this may reflect apical pneumonia, it warrants radiographic follow-up to confirm resolution as mass having developed could not be excluded. Hilar and mediastinal contours are normal. Previously, there was a left lower lobe and lingular infiltrate that has resolved. No failure pattern. No pneumothorax. IMPRESSION: 1. New abnormal density in the right pulmonary apex; this may reflect an acute infiltrate. The change itself is felt to warrant radiographic follow-up. Repeat exam within two weeks' time to confirm its resolution recommended. 2. No other abnormality with interval resolution of a prior left basilar pneumonia. Dictated by: Dictated on workstation # [id number] Dict: 02/15/23 1158 Trans: 02/15/23 1428 [id number] Interpreted by: JOSÉ MIGUEL RIVERA Electronically signed by: JOSÉ MIGUEL RIVERA 02/15/23 1428 [facility] [place], [place] NAME: SAMUEL URIAS [facility] REC#: [id number] PT STATUS: REG ER : 1935 PHYSICIAN: BERRY MAX MD ADMIT DATE: 02/15/23/ER Draft Date of Exam:02/15/23 WRIST, RIGHT, 3 VIEWS OR MORE INDICATION: Wrist pain. FINDINGS: There is an oblique fracture through the distal radius. This is minimally displaced. There are degenerative changes at the base of the first metacarpal. There is no other fracture or dislocation. IMPRESSION: Minimally displaced oblique fracture through the distal radius. Additionally, there is some degenerative change at the base of the first metacarpal. Dictated on workstation # [id number] Dict: 02/15/23 1203 Trans: 02/15/23 1206 [id number] Interpreted by: SAMUEL FALL MD Electronically signed by: Assessment/Plan Admission Diagnosis Hemorrhagic Shock Admission Status: Inpatient Order (span 2 midnights) Reason for Inpatient Admission: see below Assessment and Plan Hemorrhagic Shock GI Bleed- likely upper HTN SBP 70s in ER Continue IVF Hgb 4.6 2 units pRBCs ordered and 1 for hold Surgery consulted EGD tomorrow PPI Hold home BP meds Radius fracture minimally displaced oblique fracture Spoke with Ortho Outpatient follow up Abnormal chest x-ray new abnormal density in right apex Needs follow up in 2 weeks Dementia No acute needs CHET HOGUE MD Feb 15, 2023 14:57
[2023-02-15] MEDS ORDERED: NICOTINE 21 MG (NICODERM) PATCH TD NR (15:30)
[2023-02-15] MEDS: RT-ALBUTEROL SULF 2.5 MG/3 ML PRE-MIX VIAL INH SCH ×2 (15:39→21:18)
[2023-02-15 15:41] LABS: BILIRUBIN,URINE NEGATIVE (NEGATIVE); CLARITY,URINE CLEAR; COLOR,URINE YELLOW; GLUCOSE, URINE (UA) NEGATIVE (NEGATIVE); KETONES,URINE NEGATIVE (NEGATIVE); LEUKOCYTE ESTERASE ,URINE TRACE (NEGATIVE); NITRITE,URINE NEGATIVE (NEGATIVE); PROTEIN,URINE NEGATIVE (NEGATIVE)
--- NOTE | 2023-02-15 15:42 | Tele-ICU Progress Note ---
Subjective Date Seen by a Provider: Feb 15, 2023 Time Seen by a Provider: 15:40 Subjective/Events-last exam (Tele-ICU Physician , consultation as per request of PCP Service provided via interactive audio and video telecommunications E-CARE system to a patient admitted to ICU bed in [facility]. Available chart/ vitals / labs / Images reviewed H&P is from ER notes Patient's information available about PMH, Shx, Fhx allergy reviewed inEMR. ROS as per chart and RN report HPI: 87 y/o M hx of dementia, COPD, HTN and BPH presented to ED with AMS and generalized weakness, found to have acute hemoglobin drop of 4.9. Per also with black tarry stools. Admitted for GIB A/P GIB: Hemoglobin 4.9 -Will give 2 units pRBC, recheck CBC -GI consulted. Planning for scope in AM -Protonix gtt -Would place large bore IV (PICC will not be sufficient for access.) -Consider EPO Uremia: BUN 113, concern for KAELA -Ulytes, U/A, urine culture. -Good in place. Cont to hydrate (IVF) Radius fracture -Minimally displaced oblique fracture -Outpatient follow up per ortho Abnormal chest x-ray -new abnormal density in right apex. F/u on repeat imaging. Lines : PICC , (Central Line Necessity Reviewed) Good: + Nutrition: NPO VTE Prophylaxis: none Stress Ulcer Prophylaxis: Protonix gtt Plans in collaboration with bedside consultants and IM MDs. Discussed with RN to reach out if any questions or concerns A total of 25 minutes of critical care time was devoted to this patient today, required to treat and/or prevent further deterioration of critical care condition (as above) Sepsis Event Evaluation Height, Weight, BMI Height: 5'9.00" Weight: 250lbs. 3.0oz. [id number]; 19.94 BMI Method:Stated Exam Exam Patient acknowledged, consented, and participated in this virtual visit which was conducted using real time audio/video Vital Signs Date Time Temp Pulse Resp B/P (MAP) Pulse Ox O2 Delivery O2 Flow Rate FiO2 02/15/23 14:45 75 17 110/89 (96) 99 Nasal Cannula 4.00 02/15/23 14:37 36.2 71 22 111/52 Nasal Cannula 4.00 02/15/23 14:35 36.2 72 22 111/52 100 Nasal Cannula 4.00 02/15/23 14:32 36.3 02/15/23 14:30 68 15 111/52 (71) 100 Nasal Cannula 4.00 02/15/23 14:15 73 16 89/50 (63) 93 Nasal Cannula 4.00 02/15/23 14:12 35.8 65 99 02/15/23 14:09 72 02/15/23 14:08 36.5 70 17 98/63 100 Nasal Cannula 4.00 02/15/23 14:00 70 16 98/63 (75) 93 Nasal Cannula 4.00 02/15/23 13:41 35.8 65 20 111/84 99 Nasal Cannula 4.00 02/15/23 12:39 35.9 65 19 70/35 100 Nasal Cannula 4.00 02/15/23 12:33 35.9 68 20 82/33 100 Nasal Cannula 4.00 02/15/23 12:29 35.8 67 20 95/36 100 Nasal Cannula 4.00 02/15/23 12:24 35.8 69 20 84/62 98 Nasal Cannula 4.00 02/15/23 11:05 35.1 67 18 84/41 (55) 100 Nasal Cannula 4.00 Height & Weight Height: 5'9.00" Weight: 250lbs. 3.0oz. [id number]; 19.94 BMI Method:Stated General Appearance: No Apparent Distress, Chronically ill, Thin HEENT: PERRL/EOMI, Other (dry mucosa) Respiratory: Lungs Clear, No Respiratory Distress Cardiovascular: Regular Rate, Rhythm, No Murmur Extremity: No Calf Tenderness, No Pedal Edema Neurologic/Psychiatric: Alert, Other (oriented to person and place- pleasasntly confused otherwise) Skin: Normal Color, Warm/Dry Results Lab Laboratory Tests 02/15/23 11:16 Assessment/Plan Assessment/Plan . EDITH ROCHE MD Feb 15, 2023 15:42
[2023-02-15] MEDS: PANTOPRAZOLE DRIP 200 MG/NS 100 ML IV SCH ×2 (15:43)
[2023-02-15] MEDS: NS IV 1000 ML 1,000 ML IV SCH (15:43)
[2023-02-15 15:47] LABS: BACTERIA,URINE NEGATIVE /HPF; WBC,URINE RARE /HPF
--- NOTE | 2023-02-15 15:48 | Diagnostic Imaging Report ---
HISTORY: PICC line placement TECHNIQUE: Frontal view of the chest. COMPARISON: Radiographs from the same day. FINDINGS: The tip of the left PICC line projects over the upper SVC. Lung volumes are large. No consolidation is seen. There is no pleural effusion or pneumothorax. The cardiac silhouette is normal in size. There is aortic atherosclerosis. IMPRESSION: The tip of the left PICC line projects over the upper SVC. Dictated by: Dictated on workstation # [id number]
[2023-02-15 16:22] LABS: EOSINOPHILS % (AUTO) 0 % (0-10); MONOCYTES # (AUTO) 0.5 10^3/uL (0.0-1.0); NEUTROPHILS % (AUTO) 81 % (42-75)
[2023-02-15 16:24] LABS: BASOPHILS % (AUTO) 0 % (0-10); LYMPHOCYTES # (AUTO) 1.6 10^3/uL (1.0-4.0); LYMPHOCYTES % (AUTO) 14 % (12-44); MEAN CORPUSCULAR HEMOGLOBIN 32 pg (25-34); MEAN CORPUSCULAR HGB CONC 34 g/dL (32-36); MEAN CORPUSCULAR VOLUME 92 fL (80-99); MEAN PLATELET VOLUME 11.6 fL (9.0-12.2); MONOCYTES % (AUTO) 4 % (0-12); NEUTROPHILS # (AUTO) 9.1 10^3/uL (1.8-7.8); PLATELET COUNT 111 10^3/uL (130-400); WHITE BLOOD COUNT 11.3 10^3/uL (4.3-11.0)
[2023-02-15 16:27] LABS: HEMOGLOBIN 6.6 g/dL (13.3-17.7)
[2023-02-15 16:28] LABS: HEMATOCRIT 19 % (40-54)
--- NOTE | 2023-02-15 16:30 | Consultation - Surgery ---
History of Present Illness History of Present Illness Patient Consulted On(kassi/time) 02/15/23 16:22 Date Seen by Provider: Feb 15, 2023 Time Seen by Provider: 16:22 History of Present Illness Consult requested by Dr. Hogue for anemia/gi bleed. Patient is an 87 year old male who has been having increasing weakness. He has had a recent fall about 2 days ago. Now has to wear a brace on left wrist. He has been having some darker stools. He has not had a colonoscopy before he states. He was found to have a hgb of 4.6. Denies any abdominal pain. Denies fever sweats chills shortness of breath or chest pain. Allergies and Home Medications Allergies Coded Allergies: morphine (Verified Allergy, Unknown, EXTREME CONFUSION, 11/02/15) Patient Home Medication List Home Medication List Reviewed: Yes Cyclobenzaprine HCl (Cyclobenzaprine HCl) 10 Mg Tablet, 10 MG PO DAILY, (Reported) Entered as Reported by: VILLA DELGADO on 05/24/15 1149 Gabapentin (Gabapentin) 300 Mg Capsule, 300 MG PO DAILY, (Reported) Entered as Reported by: EDUARDO RETANA on 11/02/15 1634 Levofloxacin (Levofloxacin) 750 Mg Tablet, 750 MG PO DAILY@1100 Prescribed by: ANGEL DONATO on 11/04/15 1315 Lisinopril (Lisinopril) 5 Mg Tablet, 5 MG PO DAILY, (Reported) Entered as Reported by: EDUARDO RETANA on 11/02/15 1634 Ranitidine HCl (Zantac) 150 Mg Tablet, 150 MG PO DAILY, (Reported) Entered as Reported by: EDUARDO RETANA on 11/02/15 1638 [Vitamin D] , 2 TAB PO DAILY, (Reported) Entered as Reported by: EDUARDO RETANA on 11/02/15 1634 Past Utzqiot-Qhffwr-Ynjyhk Hx Patient Social History Smoking Status: Current Everyday Smoker Recent Hopitalizations: Yes Alcohol Use?: No Surgeries History of Surgeries: Yes (FINGER AMPUTATION, COLECTOMY, BLEEDING ULCER, ) Surgeries: Abdominal Respiratory History of Respiratory Disorde: No Cardiovascular History of Cardiac Disorders: Yes Cardiac Disorders: Hypertension Neurological History of Neurological Disord: No Reproductive System Hx Reproductive Disorders: No Sexually Transmitted Disease: No Gastrointestinal History of Gastrointestinal Di: Yes (ULCERS, HX BOWEL OBSRUCTION-10YRS AGO) Gastrointestinal Disorders: Gastroesophageal Reflux Musculoskeletal History of Musculoskeletal Dis: No Endocrine History of Endocrine Disorders: No HEENT Loss of Vision: Bilateral Hearing Impairment: Denies Cancer History of Cancer: No Psychosocial History of Psychiatric Problem: No Integumentary History of Skin or Integumenta: No Blood Transfusions History of Blood Disorders: No Adverse Reaction to a Blood Tr: No (HAD BLOOD WITH GI BLEED, NO PROBLEMS) Reviewed Nursing Assessment Reviewed/Agree w Nursing PMH: Yes Family Medical History Significant Family History: No Pertinent Family Hx Review of Systems-General Constitutional: No chills, No diaphoresis; weakness EENTM: No blurred vision, No double vision Respiratory: dyspnea on exertion, short of breath Gastrointestinal: No abdominal pain; melena Genitourinary: No decreased output, No discharge Musculoskeletal: No back pain, No joint pain Skin: No change in color, No change in hair/nails Psychiatric/Neurological: Denies Anxiety, Denies Depressed, Denies Emotional Problems All Other Systems Reviewed Negative Unless Noted: Yes (Negative excepted noted.) Physical Exam-General Problems Physical Exam Vital Signs Vital Signs - First Documented 02/15/23 11:05 Temp 35.1 Pulse 67 Resp 18 B/P (MAP) 84/41 (55) Pulse Ox 100 O2 Delivery Nasal Cannula O2 Flow Rate 4.00 Capillary Refill : General Appearance: no apparent distress, thin HEENT: PERRL/EOMI, normal ENT inspection Neck: non-tender, supple Respiratory: chest non-tender, no respiratory distress, no accessory muscle use Cardiovascular: regular rate, rhythm, no JVD Gastrointestinal: non tender, soft (midline scar lower abdomen and right lower quadrant) Rectal: deferred (at this time) Back: no CVA tenderness, no vertebral tenderness Extremities: non-tender, normal inspection Neurologic/Psychiatric: alert, normal mood/affect Skin: warm/dry, pallor Lymphatic: no adenopathy Data Review Labs Laboratory Tests 02/15/23 11:16: White Blood Count 11.7H, Red Blood Count 1.35L, Hemoglobin 4.6*L, Hematocrit 15*L, Mean Corpuscular Volume 112H, Mean Corpuscular Hemoglobin 34, Mean Corpuscular Hemoglobin Concent 31L, Red Cell Distribution Width 14.0, Platelet Count 145, Mean Platelet Volume 12.1, Immature Granulocyte % (Auto) 1, Neutrophils (%) (Auto) 83H, Lymphocytes (%) (Auto) 12, Monocytes (%) (Auto) 4, Eosinophils (%) (Auto) 0, Basophils (%) (Auto) 0, Neutrophils # (Auto) 9.7H, Lymphocytes # (Auto) 1.3, Monocytes # (Auto) 0.5, Eosinophils # (Auto) 0.0, Basophils # (Auto) 0.0, Immature Granulocyte # (Auto) 0.1, Sodium Level 144, Potassium Level 4.7, Chloride Level 113H, Carbon Dioxide Level 14L, Anion Gap 17H, Blood Urea Nitrogen 113*H, Creatinine 1.44H, Estimat Glomerular Filtration Rate 48, BUN/Creatinine Ratio 78, Glucose Level 148H, Calcium Level 8.8, Corrected Calcium 9.4, Total Bilirubin 0.3, Aspartate Amino Transf (AST/SGOT) 35H, Alanine Aminotransferase (ALT/SGPT) 27, Alkaline Phosphatase 68, Total Protein 4.8L, Albumin 3.2 02/15/23 15:15: Urine Color YELLOW, Urine Clarity CLEAR, Urine pH 6.0, Urine Specific [place] 1.020, Urine Protein NEGATIVE, Urine Glucose (UA) NEGATIVE, Urine Ketones NEGATIVE, Urine Nitrite NEGATIVE, Urine Bilirubin NEGATIVE, Urine Urobilinogen 0.2, Urine Leukocyte Esterase TRACEH, Urine RBC (Auto) NEGATIVE, Urine RBC NONE, Urine WBC RARE, Urine Squamous Epithelial Cells 2-5, Urine Crystals NONE, Urine Bacteria NEGATIVE, Urine Casts NONE, Urine Mucus NEGATIVE, Urine Culture Indicated NO 02/15/23 16:17: Assessment/Plan Assessment/Plan Assessment/Plan melena anemia-likely from upper gi bleed patient admitted to ICU Protonix Transfuse prbc and follow hgb we discussed doing an EGD for further evaluation i think he would not tolerate a prep at this time, would consider colonoscopy in near future NPO Iv fluids Discussed with KIARA Smith DO Feb 15, 2023 16:30
[2023-02-15] MEDS ORDERED: NS IV 500 ML 500 ML IV SCH ×3 (16:45→23:00)
[2023-02-15 22:09] LABS: BASOPHILS % (AUTO) 0 % (0-10); EOSINOPHILS % (AUTO) 0 % (0-10); LYMPHOCYTES # (AUTO) 1.7 10^3/uL (1.0-4.0); LYMPHOCYTES % (AUTO) 17 % (12-44); MEAN CORPUSCULAR HEMOGLOBIN 32 pg (25-34); MEAN CORPUSCULAR HGB CONC 34 g/dL (32-36); MEAN CORPUSCULAR VOLUME 92 fL (80-99); MONOCYTES # (AUTO) 0.6 10^3/uL (0.0-1.0); MONOCYTES % (AUTO) 6 % (0-12); NEUTROPHILS # (AUTO) 7.3 10^3/uL (1.8-7.8); NEUTROPHILS % (AUTO) 76 % (42-75); PLATELET COUNT 90 10^3/uL (130-400); WHITE BLOOD COUNT 9.7 10^3/uL (4.3-11.0)
[2023-02-15 22:11] LABS: HEMOGLOBIN 6.5 g/dL (13.3-17.7)
[2023-02-15 22:12] LABS: HEMATOCRIT 19 % (40-54)
[2023-02-15] MEDS ORDERED: NS (IVPB) 250 ML 250 ML ONE (22:34)
--- NOTE | 2023-02-15 22:51 | Tele-ICU Progress Note ---
Subjective Date Seen by a Provider: Feb 15, 2023 Time Seen by a Provider: 22:47 Subjective/Events-last exam called for Hb 6.5, was 4.5. has received 3 U PRBC, No active bleeding, to have EGD in am, Coagulation is pending will give another unit of PRBC, CXR does not show congestion, pt is hyperinflated and on 3 lpm NC Sepsis Event Evaluation Height, Weight, BMI Height: 5'9.00" Weight: 250lbs. 3.0oz. [id number]; 19.94 BMI Method:Stated Exam Exam Patient acknowledged, consented, and participated in this virtual visit which was conducted using real time audio/video Vital Signs Date Time Temp Pulse Resp B/P (MAP) Pulse Ox O2 Delivery O2 Flow Rate FiO2 02/15/23 21:37 71 22 87/63 (71) 100 Nasal Cannula 4.00 02/15/23 21:18 100 Nasal Cannula 5.00 02/15/23 20:53 36.9 72 26 105/56 100 Nasal Cannula 4.00 02/15/23 20:00 36.4 02/15/23 20:00 94 Nasal Cannula 4.00 02/15/23 19:20 67 111/96 (101) Nasal Cannula 4.00 02/15/23 19:00 70 02/15/23 18:25 36.7 70 22 103/56 96 Nasal Cannula 4.00 02/15/23 18:09 36.8 70 16 103/56 98 Nasal Cannula 4.00 02/15/23 18:06 68 26 103/56 (72) 100 Nasal Cannula 4.00 02/15/23 17:00 73 13 105/54 (71) 100 Nasal Cannula 4.00 02/15/23 16:05 36.0 02/15/23 16:00 100 Nasal Cannula 4.00 02/15/23 16:00 72 13 116/58 (77) 90 Nasal Cannula 4.00 02/15/23 15:40 70 13 105/65 (78) 99 Nasal Cannula 4.00 02/15/23 15:39 100 Nasal Cannula 5.00 02/15/23 15:30 74 13 112/57 (75) 99 Nasal Cannula 4.00 02/15/23 15:20 71 13 110/50 (70) 100 Nasal Cannula 4.00 02/15/23 14:45 75 17 110/89 (96) 99 Nasal Cannula 4.00 02/15/23 14:37 36.2 71 22 111/52 Nasal Cannula 4.00 02/15/23 14:35 36.2 72 22 111/52 100 Nasal Cannula 4.00 02/15/23 14:32 36.3 02/15/23 14:30 68 15 111/52 (71) 100 Nasal Cannula 4.00 02/15/23 14:15 73 16 89/50 (63) 93 Nasal Cannula 4.00 02/15/23 14:12 35.8 65 99 02/15/23 14:09 72 02/15/23 14:08 36.5 70 17 98/63 100 Nasal Cannula 4.00 02/15/23 14:00 70 16 98/63 (75) 93 Nasal Cannula 4.00 02/15/23 13:41 35.8 65 20 111/84 99 Nasal Cannula 4.00 02/15/23 12:39 35.9 65 19 70/35 100 Nasal Cannula 4.00 02/15/23 12:33 35.9 68 20 82/33 100 Nasal Cannula 4.00 02/15/23 12:29 35.8 67 20 95/36 100 Nasal Cannula 4.00 02/15/23 12:24 35.8 69 20 84/62 98 Nasal Cannula 4.00 02/15/23 11:05 35.1 67 18 84/41 (55) 100 Nasal Cannula 4.00 Height & Weight Height: 5'9.00" Weight: 250lbs. 3.0oz. 113.690774tk; 19.94 BMI Method:Stated General Appearance: No Apparent Distress, Chronically ill, Thin HEENT: PERRL/EOMI, Other (dry mucosa) Respiratory: Lungs Clear, No Respiratory Distress Cardiovascular: Regular Rate, Rhythm, No Murmur Capillary Refill: Less Than 3 Seconds Gastrointestinal: non tender, soft (midline scar lower abdomen and right lower quadrant) Extremity: No Calf Tenderness, No Pedal Edema Neurologic/Psychiatric: Alert, Other (oriented to person and place- pleasasntly confused otherwise) Skin: Normal Color, Warm/Dry Results Lab Laboratory Tests 02/15/23 11:16 02/15/23 16:17 02/15/23 22:00 Assessment/Plan Assessment/Plan called for Hb 6.5, was 4.5. has received 3 U PRBC, No active bleeding, to have EGD in am, Coagulation is pending will give another unit of PRBC, CXR does not show congestion, pt is hyperinflate d and on 3 lpm NC Critical Care: Critically Ill Patient KWABENA WELSH MD Feb 15, 2023 22:51
[2023-02-15 22:54] LABS: INR 1.3 (0.8-1.4); PROTHROMBIN TIME PATIENT 16.2 SEC (12.2-14.7)
[2023-02-16 01:20] VITALS: BP 105/57
[2023-02-16] MEDS: NS IV 1000 ML 1,000 ML IV SCH ×2 (01:25→11:08)
[2023-02-16 01:38] VITALS: BP 93/62
[2023-02-16] MEDS: RT-ALBUTEROL SULF 2.5 MG/3 ML PRE-MIX VIAL INH SCH ×4 (02:07→20:49)
[2023-02-16 04:01] VITALS: BP 103/64
[2023-02-16 05:09] LABS: BASOPHILS % (AUTO) 0 % (0-10); EOSINOPHILS % (AUTO) 0 % (0-10); HEMOGLOBIN 7.6 g/dL (13.3-17.7); MONOCYTES % (AUTO) 7 % (0-12); PLATELET COUNT 90 10^3/uL (130-400)
[2023-02-16 05:11] LABS: HEMATOCRIT 22 % (40-54); LYMPHOCYTES # (AUTO) 1.8 10^3/uL (1.0-4.0); LYMPHOCYTES % (AUTO) 18 % (12-44); MEAN CORPUSCULAR HEMOGLOBIN 31 pg (25-34); MEAN CORPUSCULAR HGB CONC 35 g/dL (32-36); MEAN CORPUSCULAR VOLUME 91 fL (80-99); MEAN PLATELET VOLUME 12.1 fL (9.0-12.2); MONOCYTES # (AUTO) 0.7 10^3/uL (0.0-1.0); NEUTROPHILS # (AUTO) 7.4 10^3/uL (1.8-7.8); NEUTROPHILS % (AUTO) 74 % (42-75); WHITE BLOOD COUNT 9.9 10^3/uL (4.3-11.0)
[2023-02-16 05:17] LABS: POTASSIUM 3.8 MMOL/L (3.6-5.0)
[2023-02-16 05:19] LABS: CALCIUM 7.8 MG/DL (8.5-10.1)
[2023-02-16 05:23] LABS: CREATININE SERUM 0.92 MG/DL (0.60-1.30); PHOSPHORUS 3.1 MG/DL (2.3-4.7)
[2023-02-16 05:25] LABS: MAGNESIUM 2.2 MG/DL (1.6-2.4)
[2023-02-16] MEDS ORDERED: DexMEDEtomidine 250 ML DRIP 250 ML IV ONE (05:52)
--- NOTE | 2023-02-16 05:53 | Tele-ICU Progress Note ---
Subjective Date Seen by a Provider: Feb 16, 2023 Time Seen by a Provider: 05:52 Subjective/Events-last exam agitated, pulling at lines, will start on IV Precedex Sepsis Event Evaluation Height, Weight, BMI Height: 5'9.00" Weight: 250lbs. 3.0oz. 113.829922ve; 22.03 BMI Method:Stated Exam Exam Patient acknowledged, consented, and participated in this virtual visit which was conducted using real time audio/video Vital Signs Date Time Temp Pulse Resp B/P (MAP) Pulse Ox O2 Delivery O2 Flow Rate FiO2 02/16/23 05:05 74 24 98/56 (70) 99 Nasal Cannula 4.00 02/16/23 04:07 99 Nasal Cannula 4.00 02/16/23 04:01 36.5 73 20 103/64 100 Nasal Cannula 4.00 02/16/23 04:00 36.5 73 20 103/64 (77) 99 Nasal Cannula 4.00 02/16/23 03:22 36.7 02/16/23 02:07 100 Nasal Cannula 5.00 02/16/23 02:05 77 24 103/54 (70) 100 Nasal Cannula 4.00 02/16/23 01:38 36.6 74 24 93/62 100 Nasal Cannula 4.00 02/16/23 01:30 36.3 69 24 105/59 (74) 99 Nasal Cannula 4.00 02/16/23 01:20 36.3 63 24 105/57 99 Nasal Cannula 4.00 02/16/23 01:00 62 02/16/23 00:00 37.0 02/15/23 23:59 94 Nasal Cannula 4.00 02/15/23 22:52 67 24 92/46 (61) 100 Nasal Cannula 4.00 02/15/23 21:37 71 22 87/63 (71) 100 Nasal Cannula 4.00 02/15/23 21:18 100 Nasal Cannula 5.00 02/15/23 20:53 36.9 72 26 105/56 100 Nasal Cannula 4.00 02/15/23 20:00 36.4 02/15/23 20:00 71 19 105/56 (72) 100 Nasal Cannula 4.00 02/15/23 20:00 94 Nasal Cannula 4.00 02/15/23 19:20 67 111/96 (101) Nasal Cannula 4.00 02/15/23 19:00 70 02/15/23 18:25 36.7 70 22 103/56 96 Nasal Cannula 4.00 02/15/23 18:09 36.8 70 16 103/56 98 Nasal Cannula 4.00 02/15/23 18:06 68 26 103/56 (72) 100 Nasal Cannula 4.00 02/15/23 17:00 73 13 105/54 (71) 100 Nasal Cannula 4.00 02/15/23 16:05 36.0 02/15/23 16:00 100 Nasal Cannula 4.00 02/15/23 16:00 72 13 116/58 (77) 90 Nasal Cannula 4.00 02/15/23 15:40 70 13 105/65 (78) 99 Nasal Cannula 4.00 02/15/23 15:39 100 Nasal Cannula 5.00 02/15/23 15:30 74 13 112/57 (75) 99 Nasal Cannula 4.00 02/15/23 15:20 71 13 110/50 (70) 100 Nasal Cannula 4.00 02/15/23 14:45 75 17 110/89 (96) 99 Nasal Cannula 4.00 02/15/23 14:37 36.2 71 22 111/52 Nasal Cannula 4.00 02/15/23 14:35 36.2 72 22 111/52 100 Nasal Cannula 4.00 02/15/23 14:32 36.3 02/15/23 14:30 68 15 111/52 (71) 100 Nasal Cannula 4.00 02/15/23 14:15 73 16 89/50 (63) 93 Nasal Cannula 4.00 02/15/23 14:12 35.8 65 99 02/15/23 14:09 72 02/15/23 14:08 36.5 70 17 98/63 100 Nasal Cannula 4.00 02/15/23 14:00 70 16 98/63 (75) 93 Nasal Cannula 4.00 02/15/23 13:46 70 19 91/47 99 Nasal Cannula 4.00 02/15/23 13:41 35.8 65 20 111/84 99 Nasal Cannula 4.00 02/15/23 12:39 35.9 65 19 70/35 100 Nasal Cannula 4.00 02/15/23 12:33 35.9 68 20 82/33 100 Nasal Cannula 4.00 02/15/23 12:29 35.8 67 20 95/36 100 Nasal Cannula 4.00 02/15/23 12:24 35.8 69 20 84/62 98 Nasal Cannula 4.00 02/15/23 11:05 35.1 67 18 84/41 (55) 100 Nasal Cannula 4.00 I & O 02/16/23 07:00 Intake Total 1137.75 ml Output Total 1375 ml Balance -237.25 ml Height & Weight Height: 5'9.00" Weight: 250lbs. 3.0oz. [id number]; 22.03 BMI Method:Stated General Appearance: No Apparent Distress, Chronically ill, Thin HEENT: PERRL/EOMI, Other (dry mucosa) Respiratory: Lungs Clear, No Respiratory Distress Cardiovascular: Regular Rate, Rhythm, No Murmur Capillary Refill: Less Than 3 Seconds Gastrointestinal: non tender, soft (midline scar lower abdomen and right lower quadrant) Extremity: No Calf Tenderness, No Pedal Edema Neurologic/Psychiatric: Alert, Other (oriented to person and place- pleasasntly confused otherwise) Skin: Normal Color, Warm/Dry Results Lab Laboratory Tests 02/15/23 11:16 02/15/23 16:17 02/15/23 22:00 02/16/23 05:00 Assessment/Plan Assessment/Plan agitated, pulling at lines, will start on IV Precedex Critical Care: Critically Ill Patient Time spent with patient (mins): 10 KWABENA WELSH MD Feb 16, 2023 05:53
[2023-02-16] MEDS: DexMEDEtomidine 250 ML DRIP 250 ML IV SCH ×2 (05:58→23:19)
[2023-02-16] MEDS: NICOTINE 21 MG (NICODERM) PATCH TD SCH (08:54)
[2023-02-16] MEDS: NICOTINE PATCH REMOVAL TP SCH (08:55)
--- NOTE | 2023-02-16 09:01 | Progress Note - Hospitalist ---
Subjective HPI/CC On Admission Date Seen by Provider: Feb 16, 2023 Patient is an 87-year-old male with past medical history of dementia who presents to the emergency department due to syncope. He is unable to provide much history and defers to his . He has no complaints at this time. His states that he fell 2 days ago she believes. He has been getting more weak and she thought this was due to his back pain. He had a syncopal episode this morning so decided to bring him in for evaluation. In the emergency department he was found to have a hemoglobin of 4.6 and was having black tarry stools. His is unaware how long this has been going on but did notice darker stools this morning. He is unable to tell me when this started. He does not believe he has ever had a colonoscopy. He also tells me he has had no surgeries though he has 2 large surgical scars on his abdomen. When asked about these he is unable to recall what surgeries he has had. He was given 2 units of blood and was admitted to the ICU for further management. Subjective/Events-last exam Pt became very agitated overnight. Now on precedex. Sleeping soundly. Hgb up to 7.6. Objective Exam Vital Signs Vital Signs Date Time Temp Pulse Resp B/P (MAP) Pulse Ox O2 Delivery O2 Flow Rate FiO2 02/16/23 08:24 Nasal Cannula 2.00 02/16/23 08:00 59 23 124/75 (91) 97 02/16/23 07:02 36.5 Capillary Refill : NONE General Appearance: No Apparent Distress, Chronically ill Respiratory: Lungs Clear, No Respiratory Distress Cardiovascular: No Murmur, Bradycardia Gastrointestinal: Normal Bowel Sounds Neurologic/Psychiatric: Other (sleeping soundly) Results/Procedures Lab Laboratory Tests 02/15/23 11:16 02/15/23 16:17 02/15/23 22:00 02/16/23 05:00 Patient resulted labs reviewed. Imaging: Reviewed Imaging Report Assessment/Plan Assessment and Plan Assess & Plan/Chief Complaint Hemorrhagic Shock GI Bleed- likely upper HTN SBP 70s in ER Continue IVF Hgb 4.6 to 7.6 after 4 units pRBCs Surgery consulted EGD today PPI Hold home BP meds and ASA Radius fracture minimally displaced oblique fracture Spoke with Ortho Outpatient follow up Abnormal chest x-ray new abnormal density in right apex Needs follow up in 2 weeks Dementia Now on precedex for agitation DVT ppx: SCDs only Critical Care Critically Ill Patient CHET CHAMPAGNE MD Feb 16, 2023 09:01
[2023-02-16] MEDS ORDERED: ESCI5TAB16 PO (10:04)
[2023-02-16] MEDS ORDERED: ASPI-1238 PO (10:04)
[2023-02-16] MEDS ORDERED: MEMA10TA57 PO (10:04)
[2023-02-16] MEDS ORDERED: DONE10TA41 PO (10:04)
[2023-02-16] MEDS ORDERED: ATOR40TA70 PO (10:04)
[2023-02-16] MEDS ORDERED: LOSA25TA41 PO (10:04)
--- NOTE | 2023-02-16 10:05 | Tele-ICU Progress Note ---
Subjective Date Seen by a Provider: Feb 16, 2023 Time Seen by a Provider: 10:04 Subjective/Events-last exam (Tele-ICU Physician , Progress Note ) Service provided via interactive audio and video telecommunications E-CARE system to a patient admitted to ICU bed in [facility]. Patient is seen today due to persistent need of ICU care Available chart/ vitals / labs / Images reviewed Video assessment done using teleICU camera, rest of exam as per RN Discussed with RN Events overnight : Afebrile hemodynamically stable Respiratory - I/O = Drips: Pressors- no Hospital course: (02/15) 87y/o M admitted with GIB. Hgb 4.6. A/P GGIB - ppi drip EGD today ABLA - s/p 4 unit pRBC =Consider EPO KAELA - ns 100 /h - improved , stop IVF with hypoxia Encephalopathy - no focal deficit - on precedex 1--> 0.3 for delirium - h. odementia thrombocytopenia - delutional Hypoxia - 4 l , wheesing , presumed VO with IVF and prbc - stop IVF COPD - nebs prn Radius fracture -Minimally displaced oblique fracture -Outpatient follow up per ortho Abnormal chest x-ray -new abnormal density in right apex. F/u on repeat imaging. Lines : PICC [facility] 02/15 , (Central Line Necessity Reviewed) Good: OG: Nutrition: Analgesia: Anxiety/ delirium VTE Prophylaxis: Stress Ulcer Prophylaxis: Plans in collaboration with bedside consultants and IM MDs. Discussed with RN to reach out if any questions or concerns Case and care daily discussed on multidisciplinary rounds ( RN, PharmD, [place] , Respiratory Therapy, bilingual patient support caseworker ) A total of 20 minutes of critical care time was devoted to this patient today, required to treat and/or prevent further deterioration of critical care condition ( as above ) . I am remotely monitoring this patient from another state. I am unable to do the bedside exam, and history/physical and pertinent information is taken from other notes in the computer and bedside staff. Sepsis Event Evaluation Height, Weight, BMI Height: 5'9.00" Weight: 250lbs. 3.0oz. 113.942100iy; 22.03 BMI Method:Stated Exam Exam Patient acknowledged, consented, and participated in this virtual visit which was conducted using real time audio/video Vital Signs Date Time Temp Pulse Resp B/P (MAP) Pulse Ox O2 Delivery O2 Flow Rate FiO2 02/16/23 10:00 56 16 139/84 (102) 95 Nasal Cannula 2.00 02/16/23 09:00 56 21 134/78 (96) 95 Nasal Cannula 2.00 02/16/23 08:24 Nasal Cannula 2.00 02/16/23 08:00 59 23 124/75 (91) 97 Nasal Cannula 4.00 02/16/23 07:52 97 Nasal Cannula 4.00 02/16/23 07:02 36.5 63 18 110/71 (84) Nasal Cannula 4.00 02/16/23 07:00 61 02/16/23 07:00 64 11 117/72 (87) 97 Nasal Cannula 4.00 02/16/23 06:59 36.5 63 18 110/71 (84) Nasal Cannula 4.00 02/16/23 06:00 73 18 125/63 (83) 99 Nasal Cannula 4.00 02/16/23 05:58 69 111/63 02/16/23 05:05 74 24 98/56 (70) 99 Nasal Cannula 4.00 02/16/23 04:07 99 Nasal Cannula 4.00 02/16/23 04:01 36.5 73 20 103/64 100 Nasal Cannula 4.00 02/16/23 04:00 36.5 73 20 103/64 (77) 99 Nasal Cannula 4.00 02/16/23 03:22 36.7 02/16/23 02:07 100 Nasal Cannula 5.00 02/16/23 02:05 77 24 103/54 (70) 100 Nasal Cannula 4.00 02/16/23 01:38 36.6 74 24 93/62 100 Nasal Cannula 4.00 02/16/23 01:30 36.3 69 24 105/59 (74) 99 Nasal Cannula 4.00 02/16/23 01:20 36.3 63 24 105/57 99 Nasal Cannula 4.00 02/16/23 01:00 62 02/16/23 00:00 37.0 02/15/23 23:59 94 Nasal Cannula 4.00 02/15/23 22:52 67 24 92/46 (61) 100 Nasal Cannula 4.00 02/15/23 21:37 71 22 87/63 (71) 100 Nasal Cannula 4.00 02/15/23 21:18 100 Nasal Cannula 5.00 02/15/23 20:53 36.9 72 26 105/56 100 Nasal Cannula 4.00 02/15/23 20:00 36.4 02/15/23 20:00 71 19 105/56 (72) 100 Nasal Cannula 4.00 02/15/23 20:00 94 Nasal Cannula 4.00 02/15/23 19:20 67 111/96 (101) Nasal Cannula 4.00 02/15/23 19:00 70 02/15/23 18:25 36.7 70 22 103/56 96 Nasal Cannula 4.00 02/15/23 18:09 36.8 70 16 103/56 98 Nasal Cannula 4.00 02/15/23 18:06 68 26 103/56 (72) 100 Nasal Cannula 4.00 02/15/23 17:00 73 13 105/54 (71) 100 Nasal Cannula 4.00 02/15/23 16:05 36.0 02/15/23 16:00 100 Nasal Cannula 4.00 02/15/23 16:00 72 13 116/58 (77) 90 Nasal Cannula 4.00 02/15/23 15:40 70 13 105/65 (78) 99 Nasal Cannula 4.00 02/15/23 15:39 100 Nasal Cannula 5.00 02/15/23 15:30 74 13 112/57 (75) 99 Nasal Cannula 4.00 02/15/23 15:20 71 13 110/50 (70) 100 Nasal Cannula 4.00 02/15/23 14:45 75 17 110/89 (96) 99 Nasal Cannula 4.00 02/15/23 14:37 36.2 71 22 111/52 Nasal Cannula 4.00 02/15/23 14:35 36.2 72 22 111/52 100 Nasal Cannula 4.00 02/15/23 14:32 36.3 02/15/23 14:30 68 15 111/52 (71) 100 Nasal Cannula 4.00 02/15/23 14:15 73 16 89/50 (63) 93 Nasal Cannula 4.00 02/15/23 14:12 35.8 65 99 02/15/23 14:09 72 02/15/23 14:08 36.5 70 17 98/63 100 Nasal Cannula 4.00 02/15/23 14:00 70 16 98/63 (75) 93 Nasal Cannula 4.00 02/15/23 13:46 70 19 91/47 99 Nasal Cannula 4.00 02/15/23 13:41 35.8 65 20 111/84 99 Nasal Cannula 4.00 02/15/23 12:39 35.9 65 19 70/35 100 Nasal Cannula 4.00 02/15/23 12:33 35.9 68 20 82/33 100 Nasal Cannula 4.00 02/15/23 12:29 35.8 67 20 95/36 100 Nasal Cannula 4.00 02/15/23 12:24 35.8 69 20 84/62 98 Nasal Cannula 4.00 02/15/23 11:05 35.1 67 18 84/41 (55) 100 Nasal Cannula 4.00 I & O 02/16/23 07:00 Intake Total 1137.75 ml Output Total 1375 ml Balance -237.25 ml Height & Weight Height: 5'9.00" Weight: 250lbs. 3.0oz. 113.437107xy; 22.03 BMI Method:Stated General Appearance: No Apparent Distress, Chronically ill, Thin HEENT: PERRL/EOMI, Pale Conjunctivae (L), Pale Conjunctivae (R), Other (dry mucosa) Neck: Normal Inspection Respiratory: Lungs Clear, No Respiratory Distress Cardiovascular: Regular Rate, Rhythm, No Murmur Capillary Refill: NONE Gastrointestinal: non tender, soft (midline scar lower abdomen and right lower quadrant) Extremity: No Calf Tenderness, No Pedal Edema Neurologic/Psychiatric: Alert, Other (oriented to person and place- pleasasntly confused otherwise) Skin: Warm/Dry, Pallor Results Lab Laboratory Tests 02/15/23 11:16 02/15/23 16:17 02/15/23 22:00 02/16/23 05:00 Assessment/Plan Assessment/Plan 1 RYLEE CAMARA MD Feb 16, 2023 10:05
[2023-02-16] MEDS ORDERED: ACET-2267 PO (10:24)
[2023-02-16] MEDS ORDERED: proPOfol 200 MG/20 ML (DIPRIVAN) VIAL IV ONE (13:49)
[2023-02-16] MEDS ORDERED: KETAMINE 50 MG/5 ML SYRINGE ONE (13:49)
--- NOTE | 2023-02-16 14:01 | Progress Note - Surgery ---
Subjective Date Seen by a Provider: Feb 16, 2023 Time Seen by a Provider: 13:50 Subjective/Events-last exam Patient 4 units of Prbc. Hgb 7.6. No abdominal pain. NPO for scope. Denies n/v fever sweats chills shortness of breath or chest pain. Objective Exam Vital Signs Date Time Temp Pulse Resp B/P (MAP) Pulse Ox O2 Delivery O2 Flow Rate FiO2 02/16/23 13:00 55 02/16/23 12:00 97 Nasal Cannula 4.00 02/16/23 12:00 53 17 135/76 (95) Nasal Cannula 2.00 02/16/23 11:42 36.5 54 17 136/73 (94) 98 Nasal Cannula 2.00 02/16/23 11:00 56 26 130/80 (97) 98 Nasal Cannula 2.00 02/16/23 10:43 94 Nasal Cannula 2.00 02/16/23 10:00 56 16 139/84 (102) 95 Nasal Cannula 2.00 02/16/23 09:00 56 21 134/78 (96) 95 Nasal Cannula 2.00 02/16/23 08:24 Nasal Cannula 2.00 02/16/23 08:00 59 23 124/75 (91) 97 Nasal Cannula 4.00 02/16/23 07:52 97 Nasal Cannula 4.00 02/16/23 07:02 36.5 63 18 110/71 (84) Nasal Cannula 4.00 02/16/23 07:00 61 02/16/23 07:00 64 11 117/72 (87) 97 Nasal Cannula 4.00 02/16/23 06:59 36.5 63 18 110/71 (84) Nasal Cannula 4.00 02/16/23 06:00 73 18 125/63 (83) 99 Nasal Cannula 4.00 02/16/23 05:58 69 111/63 02/16/23 05:05 74 24 98/56 (70) 99 Nasal Cannula 4.00 02/16/23 04:07 99 Nasal Cannula 4.00 02/16/23 04:01 36.5 73 20 103/64 100 Nasal Cannula 4.00 02/16/23 04:00 36.5 73 20 103/64 (77) 99 Nasal Cannula 4.00 02/16/23 03:22 36.7 02/16/23 02:07 100 Nasal Cannula 5.00 02/16/23 02:05 77 24 103/54 (70) 100 Nasal Cannula 4.00 02/16/23 01:38 36.6 74 24 93/62 100 Nasal Cannula 4.00 02/16/23 01:30 36.3 69 24 105/59 (74) 99 Nasal Cannula 4.00 02/16/23 01:20 36.3 63 24 105/57 99 Nasal Cannula 4.00 02/16/23 01:00 62 02/16/23 00:00 37.0 02/15/23 23:59 94 Nasal Cannula 4.00 02/15/23 22:52 67 24 92/46 (61) 100 Nasal Cannula 4.00 02/15/23 21:37 71 22 87/63 (71) 100 Nasal Cannula 4.00 02/15/23 21:18 100 Nasal Cannula 5.00 02/15/23 20:53 36.9 72 26 105/56 100 Nasal Cannula 4.00 02/15/23 20:00 36.4 02/15/23 20:00 71 19 105/56 (72) 100 Nasal Cannula 4.00 02/15/23 20:00 94 Nasal Cannula 4.00 02/15/23 19:20 67 111/96 (101) Nasal Cannula 4.00 02/15/23 19:00 70 02/15/23 18:25 36.7 70 22 103/56 96 Nasal Cannula 4.00 02/15/23 18:09 36.8 70 16 103/56 98 Nasal Cannula 4.00 02/15/23 18:06 68 26 103/56 (72) 100 Nasal Cannula 4.00 02/15/23 17:00 73 13 105/54 (71) 100 Nasal Cannula 4.00 02/15/23 16:05 36.0 02/15/23 16:00 100 Nasal Cannula 4.00 02/15/23 16:00 72 13 116/58 (77) 90 Nasal Cannula 4.00 02/15/23 15:40 70 13 105/65 (78) 99 Nasal Cannula 4.00 02/15/23 15:39 100 Nasal Cannula 5.00 02/15/23 15:30 74 13 112/57 (75) 99 Nasal Cannula 4.00 02/15/23 15:20 71 13 110/50 (70) 100 Nasal Cannula 4.00 02/15/23 14:45 75 17 110/89 (96) 99 Nasal Cannula 4.00 02/15/23 14:37 36.2 71 22 111/52 Nasal Cannula 4.00 02/15/23 14:35 36.2 72 22 111/52 100 Nasal Cannula 4.00 02/15/23 14:32 36.3 02/15/23 14:30 68 15 111/52 (71) 100 Nasal Cannula 4.00 02/15/23 14:15 73 16 89/50 (63) 93 Nasal Cannula 4.00 02/15/23 14:12 35.8 65 99 02/15/23 14:09 72 02/15/23 14:08 36.5 70 17 98/63 100 Nasal Cannula 4.00 I & O 02/16/23 07:00 Intake Total 1137.75 ml Output Total 1375 ml Balance -237.25 ml Capillary Refill : NONE General Appearance: No Apparent Distress, Chronically ill, Thin HEENT: PERRL/EOMI, Normal ENT Inspection Neck: Normal Inspection, Non Tender Respiratory: Chest Non Tender, No Accessory Muscle Use, No Respiratory Distress Cardiovascular: Regular Rate, Rhythm, No JVD Gastrointestinal: non tender, soft (midline scar lower abdomen and right lower quadrant) Extremity: No Calf Tenderness, No Pedal Edema Neurologic/Psychiatric: Alert, Other (oriented to person and place- pleasasntly confused otherwise) Skin: Warm/Dry, Pallor Lymphatic: No Adenopathy Results Lab Laboratory Tests 02/15/23 15:15: Urine Color YELLOW, Urine Clarity CLEAR, Urine pH 6.0, Urine Specific [place] 1. 020, Urine Protein NEGATIVE, Urine Glucose (UA) NEGATIVE, Urine Ketones NEGATIVE, Urine Nitrite NEGATIVE, Urine Bilirubin NEGATIVE, Urine Urobilinogen 0.2, Urine Leukocyte Esterase TRACEH, Urine RBC (Auto) NEGATIVE, Urine RBC NONE, Urine WBC RARE, Urine Squamous Epithelial Cells 2-5, Urine Crystals NONE, Urine Bacteria NEGATIVE, Urine Casts NONE, Urine Mucus NEGATIVE, Urine Culture Indicated NO 02/15/23 16:17: White Blood Count 11.3H, Red Blood Count 2.09L, Hemoglobin 6.6#*L, Hematocrit 19*L, Mean Corpuscular Volume 92, Mean Corpuscular Hemoglobin 32, Mean Corpuscular Hemoglobin Concent 34, Red Cell Distribution Width 17.3H, Platelet Count 111L, Mean Platelet Volume 11.6, Immature Granulocyte % (Auto) 1, Neutrophils (%) (Auto) 81H, Lymphocytes (%) (Auto) 14, Monocytes (%) (Auto) 4, Eosinophils (%) (Auto) 0, Basophils (%) (Auto) 0, Neutrophils # (Auto) 9.1H, Lymphocytes # (Auto) 1.6, Monocytes # (Auto) 0.5, Eosinophils # (Auto) 0.0, Basophils # (Auto) 0.0, Immature Granulocyte # (Auto) 0.1, Percent Immature Platelet Fraction 5.9 02/15/23 22:00: White Blood Count 9.7, Red Blood Count 2.06L, Hemoglobin 6.5*L, Hematocrit 19*L, Mean Corpuscular Volume 92, Mean Corpuscular Hemoglobin 32, Mean Corpuscular Hemoglobin Concent 34, Red Cell Distribution Width 18.1H, Platelet Count 90L, Mean Platelet Volume 12.0, Immature Granulocyte % (Auto) 1, Neutrophils (%) (Auto) 76H, Lymphocytes (%) (Auto) 17, Monocytes (%) (Auto) 6, Eosinophils (%) (Auto) 0, Basophils (%) (Auto) 0, Neutrophils # (Auto) 7.3, Lymphocytes # (Auto) 1.7, Monocytes # (Auto) 0.6, Eosinophils # (Auto) 0.0, Basophils # (Auto) 0.0, Immature Granulocyte # (Auto) 0.1 02/15/23 22:20: Prothrombin Time 16.2H, INR Comment 1.3, Activated Partial Thromboplast Time 29 02/16/23 05:00: White Blood Count 9.9, Red Blood Count 2.42L, Hemoglobin 7.6L, Hematocrit 22L, Mean Corpuscular Volume 91, Mean Corpuscular Hemoglobin 31, Mean Corpuscular Hemoglobin Concent 35, Red Cell Distribution Width 17.7H, Platelet Count 90L, Mean Platelet Volume 12.1, Immature Granulocyte % (Auto) 1, Neutrophils (%) (Auto) 74, Lymphocytes (%) (Auto) 18, Monocytes (%) (Auto) 7, Eosinophils (%) (Auto) 0, Basophils (%) (Auto) 0, Neutrophils # (Auto) 7.4, Lymphocytes # (Auto) 1.8, Monocytes # (Auto) 0.7, Eosinophils # (Auto) 0.0, Basophils # (Auto) 0.0, Immature Granulocyte # (Auto) 0.1, Percent Immature Platelet Fraction 6.4, Sodium Level 145, Potassium Level 3.8, Chloride Level 120H, Carbon Dioxide Level 18L, Anion Gap 7, Blood Urea Nitrogen 67H, Creatinine 0.92, Estimat Glomerular Filtration Rate 82, BUN/Creatinine Ratio 73, Glucose Level 85, Calcium Level 7.8L, Phosphorus Level 3.1, Magnesium Level 2.2 Microbiology 02/15/23 MRSA Screen - Final, Complete MRSA not isolated Assessment/Plan Assessment/Plan Assessment/Plan melena anemia-likely from upper gi bleed patient admitted to ICU Protonix Transfuse prbc and follow hgb EGD today NPO Iv fluids KIARA SENA DO Feb 16, 2023 14:01
[2023-02-16 15:25] LABS: HEMATOCRIT 26 % (40-54); HEMOGLOBIN 9.1 g/dL (13.3-17.7); MEAN CORPUSCULAR HEMOGLOBIN 32 pg (25-34); MEAN CORPUSCULAR HGB CONC 35 g/dL (32-36); MEAN CORPUSCULAR VOLUME 91 fL (80-99); MEAN PLATELET VOLUME 11.6 fL (9.0-12.2); PLATELET COUNT 115 10^3/uL (130-400); WHITE BLOOD COUNT 9.8 10^3/uL (4.3-11.0)
[2023-02-16] MEDS: PANTOPRAZOLE DRIP 200 MG/NS 100 ML IV SCH ×2 (17:43)
--- NOTE | 2023-02-16 19:39 | OPERATIVE REPORT ---
DATE OF SERVICE: 02/16/2023 PREOPERATIVE DIAGNOSIS: Gastrointestinal bleed, likely upper. POSTOPERATIVE DIAGNOSES: [ ] pyloric ulcer and duodenitis. PROCEDURE: EGD with biopsy. SURGEON: Kiara Higginbotham DO ANESTHESIA: Per [employer]. ESTIMATED BLOOD LOSS: None. COMPLICATIONS: None. INDICATIONS: The patient is admitted for GI bleed. He has been having melena. He was transfused 4 units of packed red blood cells and hemoglobin 7.6. He is n.p.o. Consent was signed for procedure. DESCRIPTION OF PROCEDURE: The patient was in the intensive care unit. Timeout was performed. Scope was inserted in the mouth, down the esophagus, stomach and into the duodenum without difficulty. Second portion of duodenum had normal appearance. First portion had inflammation and changes consistent with duodenitis. Biopsies of these areas were obtained. Scope was slowly retracted back in the pyloric opening, healing ulcer present. Scope was slowly retracted back into the antrum. Biopsy of the antrum was obtained. There were no polyps, masses or ulcerations within the antrum. Scope was retroflexed noting no other pathology. Scope was returned to its normal position, slowly withdrawn until distal esophagus, which had normal appearance, no polyps, masses or ulcerations. Scope was slowly retracted back until completely removed. The patient tolerated the procedure well with no complications, taken to the recovery room in stable condition. RECOMMENDATIONS: The patient will continue on Protonix. Await biopsy results. Further recommendation pending biopsy results and continued to monitor hemoglobin and transfuse packed red blood cells as needed. No active bleeding at the time of scope. Job ID: [id number] DocumentID: [id number] Dictated Date: 02/16/2023 16:15:49 Turntable Worker Date: 02/16/2023 19:38:00 Dictated By: KIARA HIGGINBOTHAM DO
[2023-02-17] MEDS: RT-ALBUTEROL SULF 2.5 MG/3 ML PRE-MIX VIAL INH SCH ×4 (03:34→22:06)
[2023-02-17 04:58] LABS: BASOPHILS % (AUTO) 0 % (0-10); EOSINOPHILS % (AUTO) 0 % (0-10); HEMATOCRIT 27 % (40-54); HEMOGLOBIN 9.2 g/dL (13.3-17.7); LYMPHOCYTES # (AUTO) 0.9 10^3/uL (1.0-4.0); LYMPHOCYTES % (AUTO) 7 % (12-44); MEAN CORPUSCULAR HEMOGLOBIN 32 pg (25-34); MEAN CORPUSCULAR HGB CONC 34 g/dL (32-36); MEAN CORPUSCULAR VOLUME 92 fL (80-99); MEAN PLATELET VOLUME 11.6 fL (9.0-12.2); MONOCYTES # (AUTO) 0.8 10^3/uL (0.0-1.0); MONOCYTES % (AUTO) 6 % (0-12); NEUTROPHILS % (AUTO) 86 % (42-75); PLATELET COUNT 122 10^3/uL (130-400); WHITE BLOOD COUNT 12.8 10^3/uL (4.3-11.0)
[2023-02-17 05:08] LABS: POTASSIUM 4.2 MMOL/L (3.6-5.0)
[2023-02-17 05:14] LABS: CREATININE SERUM 0.92 MG/DL (0.60-1.30); PHOSPHORUS 3.5 MG/DL (2.3-4.7)
[2023-02-17 05:16] LABS: MAGNESIUM 2.4 MG/DL (1.6-2.4)
[2023-02-17 05:27] LABS: ANISOCYTOSIS MODERATE; ELLIPT/OVALOCYTES SLIGHT; HYPOCHROMASIA SLIGHT; LYMPHOCYTES % (MANUAL) 8 %; MONOCYTES % (MANUAL) 5 %; NEUTROPHILS % (MANUAL) 87 %
--- NOTE | 2023-02-17 05:27 | Progress Note - Hospitalist ---
Subjective HPI/CC On Admission Date Seen by Provider: Feb 17, 2023 Patient is an 87-year-old male with past medical history of dementia who presents to the emergency department due to syncope. He is unable to provide much history and defers to his . He has no complaints at this time. His states that he fell 2 days ago she believes. He has been getting more weak and she thought this was due to his back pain. He had a syncopal episode this morning so decided to bring him in for evaluation. In the emergency department he was found to have a hemoglobin of 4.6 and was having black tarry stools. His is unaware how long this has been going on but did notice darker stools this morning. He is unable to tell me when this started. He does not believe he has ever had a colonoscopy. He also tells me he has had no surgeries though he has 2 large surgical scars on his abdomen. When asked about these he is unable to recall what surgeries he has had. He was given 2 units of blood and was admitted to the ICU for further management. Subjective/Events-last exam Pt reports dong ok. Only complaint is that he would like something to drink. Still NPO. Objective Exam Vital Signs Vital Signs Date Time Temp Pulse Resp B/P (MAP) Pulse Ox O2 Delivery O2 Flow Rate FiO2 02/17/23 05:00 57 16 119/67 (84) 99 Nasal Cannula 2.00 02/17/23 00:05 35.5 Capillary Refill : NONE General Appearance: No Apparent Distress, Chronically ill Respiratory: Lungs Clear, No Respiratory Distress Cardiovascular: Regular Rate, Rhythm, No Murmur Gastrointestinal: Normal Bowel Sounds, Soft Neurologic/Psychiatric: Alert, Disoriented Results/Procedures Lab Laboratory Tests 02/16/23 15:10 02/17/23 04:49 Patient resulted labs reviewed. Imaging: Reviewed Imaging Report Assessment/Plan Assessment and Plan Assess & Plan/Chief Complaint Hemorrhagic Shock GI Bleed- likely upper HTN BP improved Continue IVF- decrease rate Advance to clears Hgb up to 9.2 Surgery consulted EGD revealedulcer and duodenitis PPI- switch to bolus Continue to hold home BP meds and ASA Radius fracture minimally displaced oblique fracture Spoke with Ortho Outpatient follow up Abnormal chest x-ray new abnormal density in right apex Needs follow up in 2 weeks Dementia Now on precedex for agitation- more alert today and cooperative- decrease rate DVT ppx: SCDs only Critical Care Critically Ill Patient CHET CHAMPAGNE MD Feb 17, 2023 05:27
--- NOTE | 2023-02-17 08:30 | Tele-ICU Progress Note ---
Subjective Date Seen by a Provider: Feb 17, 2023 Time Seen by a Provider: 08:27 Subjective/Events-last exam (Tele-ICU Physician , Progress Note ) Service provided via interactive audio and video telecommunications E-CARE system to a patient admitted to ICU bed in [facility]. Patient is seen today due to persistent need of ICU care Available chart/ vitals / labs / Images reviewed Video assessment done using teleICU camera, rest of exam as per RN Discussed with RN Events overnight : 87 yo M admitted on 02/11 for GIB Hb down to 4.6, Today no further bleeding, Hb stable at 9.1, on IV PPI, has received 4 U of PRBC's EGD yesterday showed pyloric ulcer with duodenitis, plan is to keep on IV PPI and await Bx results No new bleeding, no CP SOB, does have agitation from dementia, not in restraints Sepsis Event Evaluation Height, Weight, BMI Height: 5'9.00" Weight: 250lbs. 3.0oz. 113.477990yd; 22.14 BMI Method:Stated Exam Exam Patient acknowledged, consented, and participated in this virtual visit which wa s conducted using real time audio/video Vital Signs Date Time Temp Pulse Resp B/P (MAP) Pulse Ox O2 Delivery O2 Flow Rate FiO2 02/17/23 08:17 100 Nasal Cannula 3.00 02/17/23 07:57 36.0 02/17/23 07:00 50 16 125/72 (89) 100 Nasal Cannula 2.00 02/17/23 07:00 51 02/17/23 06:00 52 20 122/69 (86) 100 Nasal Cannula 2.00 02/17/23 05:00 36.1 57 16 119/67 (84) 99 Nasal Cannula 2.00 02/17/23 05:00 57 16 119/67 (84) 99 Nasal Cannula 2.00 02/17/23 04:29 54 117/69 02/17/23 04:00 58 18 112/59 (76) 100 Nasal Cannula 2.00 02/17/23 04:00 99 Nasal Cannula 2.00 02/17/23 03:35 100 Nasal Cannula 2.00 02/17/23 03:00 53 21 125/77 (93) 99 Nasal Cannula 2.00 02/17/23 02:00 54 17 128/74 (92) 100 Nasal Cannula 2.00 02/17/23 01:16 56 26 133/70 (91) 99 Nasal Cannula 2.00 02/17/23 01:00 53 02/17/23 00:05 35.5 02/17/23 00:00 92 20 121/71 (88) 99 Nasal Cannula 2.00 02/16/23 23:59 99 Nasal Cannula 2.00 02/16/23 23:19 56 127/64 02/16/23 23:00 59 19 127/64 (85) 99 Nasal Cannula 2.00 02/16/23 22:00 60 18 116/64 (81) 99 Nasal Cannula 2.00 02/16/23 21:30 59 20 128/77 (94) 99 Nasal Cannula 2.00 02/16/23 21:00 55 22 128/71 (90) 99 Nasal Cannula 2.00 02/16/23 20:51 99 Nasal Cannula 2.00 02/16/23 20:10 35.8 53 21 138/83 (101) 99 Nasal Cannula 2.00 02/16/23 20:05 99 Nasal Cannula 2.00 02/16/23 19:00 51 02/16/23 18:00 53 22 124/96 (105) 99 Nasal Cannula 2.00 02/16/23 17:00 53 18 123/67 (85) 99 Nasal Cannula 2.00 02/16/23 16:00 58 17 114/71 (85) 99 Nasal Cannula 2.00 02/16/23 16:00 97 Nasal Cannula 4.00 02/16/23 15:00 56 16 105/55 (72) 100 Nasal Cannula 2.00 02/16/23 14:50 100 Nasal Cannula 2.00 02/16/23 14:00 50 17 122/69 (86) 99 Nasal Cannula 2.00 02/16/23 13:00 55 02/16/23 13:00 51 17 137/81 (99) 98 Nasal Cannula 2.00 02/16/23 12:00 97 Nasal Cannula 4.00 02/16/23 12:00 53 17 135/76 (95) Nasal Cannula 2.00 02/16/23 11:42 36.5 54 17 136/73 (94) 98 Nasal Cannula 2.00 02/16/23 11:00 56 26 130/80 (97) 98 Nasal Cannula 2.00 02/16/23 10:43 94 Nasal Cannula 2.00 02/16/23 10:00 56 16 139/84 (102) 95 Nasal Cannula 2.00 02/16/23 09:00 56 21 134/78 (96) 95 Nasal Cannula 2.00 I & O 02/17/23 07:00 Intake Total 1349 ml Output Total 1250 ml Balance 99 ml Height & Weight Height: 5'9.00" Weight: 250lbs. 3.0oz. 113.336776mn; 22.14 BMI Method:Stated General Appearance: No Apparent Distress, Chronically ill HEENT: PERRL/EOMI, Normal ENT Inspection Neck: Normal Inspection, Non Tender Respiratory: Lungs Clear, No Respiratory Distress Cardiovascular: Regular Rate, Rhythm, No Murmur Capillary Refill: NONE Gastrointestinal: normal bowel sounds, non tender, soft (midline scar lower a bdomen and right lower quadrant) Extremity: No Calf Tenderness, No Pedal Edema Neurologic/Psychiatric: Alert, Disoriented Skin: Warm/Dry, Pallor Lymphatic: No Adenopathy Results Lab Laboratory Tests 02/15/23 11:16 02/15/23 16:17 02/15/23 22:00 02/16/23 05:00 02/16/23 15:10 02/17/23 04:49 Assessment/Plan Assessment/Plan PUD, continue on IV PPI, await Bx results Continue IV Precedex for agitation Critical Care: Critically Ill Patient Time spent with patient (mins): 20 KWABENA WELSH MD Feb 17, 2023 08:30
[2023-02-17] MEDS: NICOTINE 21 MG (NICODERM) PATCH TD SCH (08:37)
[2023-02-17] MEDS: NICOTINE PATCH REMOVAL TP SCH (08:38)
[2023-02-17] MEDS: PANTOPRAZOLE 40 MG (PROTONIX) VIAL IV SCH ×2 (08:38→21:33)
--- NOTE | 2023-02-17 09:17 | Progress Note - Surgery ---
Subjective Date Seen by a Provider: Feb 17, 2023 Time Seen by a Provider: 09:16 Subjective/Events-last exam Laying in bed. No abdominal pain. Hgb now 9.2. Denies n/v fever sweats chills shortness of breath or chest pain. No family at bedside. Objective Exam Vital Signs Date Time Temp Pulse Resp B/P (MAP) Pulse Ox O2 Delivery O2 Flow Rate FiO2 02/17/23 09:00 54 16 133/80 (97) 100 Nasal Cannula 2.00 02/17/23 08:17 100 Nasal Cannula 3.00 02/17/23 08:00 98 Nasal Cannula 2.00 02/17/23 08:00 49 15 123/70 (87) 100 Nasal Cannula 2.00 02/17/23 07:57 36.0 02/17/23 07:00 50 16 125/72 (89) 100 Nasal Cannula 2.00 02/17/23 07:00 51 02/17/23 06:00 52 20 122/69 (86) 100 Nasal Cannula 2.00 02/17/23 05:00 36.1 57 16 119/67 (84) 99 Nasal Cannula 2.00 02/17/23 05:00 57 16 119/67 (84) 99 Nasal Cannula 2.00 02/17/23 04:29 54 117/69 02/17/23 04:00 58 18 112/59 (76) 100 Nasal Cannula 2.00 02/17/23 04:00 99 Nasal Cannula 2.00 02/17/23 03:35 100 Nasal Cannula 2.00 02/17/23 03:00 53 21 125/77 (93) 99 Nasal Cannula 2.00 02/17/23 02:00 54 17 128/74 (92) 100 Nasal Cannula 2.00 02/17/23 01:16 56 26 133/70 (91) 99 Nasal Cannula 2.00 02/17/23 01:00 53 02/17/23 00:05 35.5 02/17/23 00:00 92 20 121/71 (88) 99 Nasal Cannula 2.00 02/16/23 23:59 99 Nasal Cannula 2.00 02/16/23 23:19 56 127/64 02/16/23 23:00 59 19 127/64 (85) 99 Nasal Cannula 2.00 02/16/23 22:00 60 18 116/64 (81) 99 Nasal Cannula 2.00 02/16/23 21:30 59 20 128/77 (94) 99 Nasal Cannula 2.00 02/16/23 21:00 55 22 128/71 (90) 99 Nasal Cannula 2.00 02/16/23 20:51 99 Nasal Cannula 2.00 02/16/23 20:10 35.8 53 21 138/83 (101) 99 Nasal Cannula 2.00 02/16/23 20:05 99 Nasal Cannula 2.00 02/16/23 19:00 51 02/16/23 18:00 53 22 124/96 (105) 99 Nasal Cannula 2.00 02/16/23 17:00 53 18 123/67 (85) 99 Nasal Cannula 2.00 02/16/23 16:00 58 17 114/71 (85) 99 Nasal Cannula 2.00 02/16/23 16:00 97 Nasal Cannula 4.00 02/16/23 15:00 56 16 105/55 (72) 100 Nasal Cannula 2.00 02/16/23 14:50 100 Nasal Cannula 2.00 02/16/23 14:00 50 17 122/69 (86) 99 Nasal Cannula 2.00 02/16/23 13:00 55 02/16/23 13:00 51 17 137/81 (99) 98 Nasal Cannula 2.00 02/16/23 12:00 97 Nasal Cannula 4.00 02/16/23 12:00 53 17 135/76 (95) Nasal Cannula 2.00 02/16/23 11:42 36.5 54 17 136/73 (94) 98 Nasal Cannula 2.00 02/16/23 11:00 56 26 130/80 (97) 98 Nasal Cannula 2.00 02/16/23 10:43 94 Nasal Cannula 2.00 02/16/23 10:00 56 16 139/84 (102) 95 Nasal Cannula 2.00 I & O 02/17/23 07:00 Intake Total 1349 ml Output Total 1250 ml Balance 99 ml Capillary Refill : NONE General Appearance: No Apparent Distress, Chronically ill HEENT: PERRL/EOMI, Normal ENT Inspection Neck: Normal Inspection, Non Tender Respiratory: Chest Non Tender, No Accessory Muscle Use, No Respiratory Distress Cardiovascular: Regular Rate, Rhythm, No Murmur Gastrointestinal: non tender, soft (midline scar lower abdomen and right lower quadrant) Extremity: No Calf Tenderness, No Pedal Edema Neurologic/Psychiatric: Alert, Disoriented Skin: Warm/Dry, Pallor Lymphatic: No Adenopathy Results Lab Laboratory Tests 02/16/23 15:10: White Blood Count 9.8, Red Blood Count 2.88L, Hemoglobin 9.1L, Hematocrit 26L, Mean Corpuscular Volume 91, Mean Corpuscular Hemoglobin 32, Mean Corpuscular Hemoglobin Concent 35, Red Cell Distribution Width 18.5H, Platelet Count 115L, Mean Platelet Volume 11.6 02/17/23 04:49: White Blood Count 12.8H, Red Blood Count 2.91L, Hemoglobin 9.2#L, Hematocrit 27L , Mean Corpuscular Volume 92, Mean Corpuscular Hemoglobin 32, Mean Corpuscular Hemoglobin Concent 34, Red Cell Distribution Width 18.3H, Platelet Count 122L, Mean Platelet Volume 11.6, Immature Granulocyte % (Auto) 1, Neutrophils (%) (Auto) 86H, Lymphocytes (%) (Auto) 7L, Monocytes (%) (Auto) 6, Eosinophils (%) (Auto) 0, Basophils (%) (Auto) 0, Neutrophils # (Auto) 11.0H, Lymphocytes # (Auto) 0.9L, Monocytes # (Auto) 0.8, Eosinophils # (Auto) 0.0, Basophils # (Auto) 0.0, Immature Granulocyte # (Auto) 0.1, Neutrophils % (Manual) 87, Lymphocytes % (Manual) 8, Monocytes % (Manual) 5, Hypochromasia SLIGHT, Anisocytosis MODERATE, Microcytosis , Elliptocytes SLIGHT, Sodium Level 148H, Potassium Level 4.2, Chloride Level 119H, Carbon Dioxide Level 20L, Anion Gap 9, Blood Urea Nitrogen 49H, Creatinine 0.92, Estimat Glomerular Filtration Rate 82, BUN/Creatinine Ratio 53, Glucose Level 129H, Calcium Level 9.0, Phosphorus Level 3.5, Magnesium Level 2.4 Microbiology 02/15/23 MRSA Screen - Final, Complete MRSA not isolated Assessment/Plan Assessment/Plan Assessment/Plan melena anemia-likely from upper pyloric ulcer duodenitis patient admitted to ICU Protonix Transfuse prbc and follow hgb EGD today Clears if hgb remains stabe can advance Iv fluids KIARA SENA DO Feb 17, 2023 09:17
[2023-02-17] MEDS: DexMEDEtomidine 250 ML DRIP 250 ML IV SCH (14:29)
[2023-02-17] MEDS: risperiDONE 0.5 MG (RisperDAL) TABLET PO SCH ×2 (21:34→22:08)
[2023-02-18] MEDS: DexMEDEtomidine 250 ML DRIP 250 ML IV SCH ×3 (02:24→22:12)
[2023-02-18] MEDS: RT-ALBUTEROL SULF 2.5 MG/3 ML PRE-MIX VIAL INH SCH ×4 (03:16→21:40)
[2023-02-18 04:21] LABS: HEMOGLOBIN 9.1 g/dL (13.3-17.7)
[2023-02-18 04:23] LABS: BASOPHILS % (AUTO) 0 % (0-10); EOSINOPHILS # (AUTO) 0.1 10^3/uL (0.0-0.3); EOSINOPHILS % (AUTO) 2 % (0-10); HEMATOCRIT 27 % (40-54); LYMPHOCYTES # (AUTO) 1.3 10^3/uL (1.0-4.0); LYMPHOCYTES % (AUTO) 16 % (12-44); MEAN CORPUSCULAR HEMOGLOBIN 32 pg (25-34); MEAN CORPUSCULAR HGB CONC 34 g/dL (32-36); MEAN CORPUSCULAR VOLUME 93 fL (80-99); MEAN PLATELET VOLUME 11.9 fL (9.0-12.2); MONOCYTES # (AUTO) 0.5 10^3/uL (0.0-1.0); MONOCYTES % (AUTO) 6 % (0-12); NEUTROPHILS # (AUTO) 5.9 10^3/uL (1.8-7.8); NEUTROPHILS % (AUTO) 75 % (42-75); PLATELET COUNT 136 10^3/uL (130-400); WHITE BLOOD COUNT 7.8 10^3/uL (4.3-11.0)
[2023-02-18 08:56] LABS: POTASSIUM 3.9 MMOL/L (3.6-5.0)
[2023-02-18 08:57] LABS: CALCIUM 8.6 MG/DL (8.5-10.1)
[2023-02-18 09:01] LABS: CREATININE SERUM 0.71 MG/DL (0.60-1.30); PHOSPHORUS 2.6 MG/DL (2.3-4.7)
[2023-02-18 09:04] LABS: MAGNESIUM 2.2 MG/DL (1.6-2.4)
--- NOTE | 2023-02-18 09:05 | Tele-ICU Progress Note ---
Subjective Date Seen by a Provider: Feb 18, 2023 Time Seen by a Provider: 08:59 Subjective/Events-last exam (Tele-ICU Physician , Progress Note ) Service provided via interactive audio and video telecommunications E-CARE system to a patient admitted to ICU bed in [facility]. Patient is seen today due to persistent need of ICU care Available chart/ vitals / labs / Images reviewed Video assessment done using teleICU camera, rest of exam as per RN Discussed with RN Events overnight : Afebrile hemodynamically stable Respiratory - I/O = Drips: Pressors- no Hospital course: (02/18) 87y/o M admitted with GIB. Hgb 4.6. s/p prbcs infusion. hb improved to 9.1gm A/P GGIB - ppi ivp EGD results. ulcer with duodenitis ABLA - s/p 4 unit pRBC =now hb is 9.1gm KAELA - ns 100 /h - improved , stop IVF with hypoxia Encephalopathy - no focal deficit - on precedex 1--> 0.3 for delirium - h. odementia wean as tolerated thrombocytopenia - improved Hypoxia - improving wheesing , presumed VO with IVF and prbc - stop IVF COPD - nebs prn Radius fracture -Minimally displaced oblique fracture -Outpatient follow up per ortho Abnormal chest x-ray -new abnormal density in right apex. F/u as out patient Lines : PICC [facility] 02/15 , (Central Line Necessity Reviewed) Good: OG: Nutrition: Analgesia: Anxiety/ delirium VTE Prophylaxis: Stress Ulcer Prophylaxis: Plans in collaboration with bedside consultants and IM MDs. Discussed with RN to reach out if any questions or concerns Case and care daily discussed on multidisciplinary rounds ( RN, PharmD, Liquid Center Assembler , Respiratory Therapy, automotive worker foreman ) A total of 15 minutes of critical care time was devoted to this patient today, required to treat and/or prevent further deterioration of critical care condition ( as above ) . I am remotely monitoring this patient from another state. I am unable to do the bedside exam, and history/physical and pertinent information is taken from other notes in the computer and bedside staff. Sepsis Event Evaluation Height, Weight, BMI Height: 5'9.00" Weight: 250lbs. 3.0oz. [id number]; 23.05 BMI Method:Stated Exam Exam Patient acknowledged, consented, and participated in this virtual visit which was conducted using real time audio/video Vital Signs Date Time Temp Pulse Resp B/P (MAP) Pulse Ox O2 Delivery O2 Flow Rate FiO2 02/18/23 08:00 51 23 130/71 (90) 100 Nasal Cannula 2.00 02/18/23 07:53 36.2 02/18/23 07:43 99 Nasal Cannula 2.00 02/18/23 07:00 50 02/18/23 07:00 50 28 138/78 (98) 100 Nasal Cannula 2.00 02/18/23 06:25 51 113/64 02/18/23 06:07 47 19 120/74 (89) 100 Nasal Cannula 2.00 02/18/23 05:06 46 22 127/73 (91) 100 Nasal Cannula 2.00 02/18/23 04:34 35.8 47 16 121/66 (84) 100 Nasal Cannula 2.00 02/18/23 04:00 99 Nasal Cannula 2.00 02/18/23 03:17 100 Nasal Cannula 2.00 02/18/23 03:06 51 16 142/75 (97) 100 Nasal Cannula 2.00 02/18/23 02:34 52 16 144/79 (100) 99 Nasal Cannula 2.00 02/18/23 02:24 51 143/82 02/18/23 01:22 50 15 112/64 (80) 99 Nasal Cannula 2.00 02/18/23 01:16 52 02/18/23 00:00 35.9 50 16 151/103 (119) 99 Nasal Cannula 2.00 02/17/23 23:59 99 Nasal Cannula 2.00 02/17/23 23:11 48 16 145/81 (102) 99 Nasal Cannula 2.00 02/17/23 22:30 50 20 149/82 (104) 100 Nasal Cannula 2.00 02/17/23 22:15 48 20 134/90 (105) 100 Nasal Cannula 2.00 02/17/23 22:10 100 Nasal Cannula 2.00 02/17/23 22:00 48 20 145/84 (104) 100 Nasal Cannula 2.00 02/17/23 21:45 49 20 152/88 (109) 100 Nasal Cannula 2.00 02/17/23 21:30 48 20 154/84 (107) 100 Nasal Cannula 2.00 7/29/23 20:00 49 14 145/84 (104) 100 Nasal Cannula 2.00 02/17/23 20:00 99 Nasal Cannula 2.00 02/17/23 19:23 35.3 51 20 155/93 (113) 100 Nasal Cannula 2.00 02/17/23 19:00 49 02/17/23 18:29 51 153/94 02/17/23 18:00 46 15 153/94 (113) 100 Nasal Cannula 2.00 02/17/23 17:00 49 16 154/87 (109) 100 Nasal Cannula 2.00 02/17/23 16:00 51 16 155/88 (110) 100 Nasal Cannula 2.00 02/17/23 16:00 98 Nasal Cannula 2.00 02/17/23 15:00 49 16 162/93 (116) 100 Nasal Cannula 2.00 02/17/23 14:32 100 Nasal Cannula 2.00 02/17/23 14:29 47 155/81 02/17/23 14:00 47 14 155/81 (105) 100 Nasal Cannula 2.00 02/17/23 13:00 50 17 114/74 (87) 99 Nasal Cannula 2.00 02/17/23 12:28 51 02/17/23 12:00 98 Nasal Cannula 2.00 02/17/23 12:00 50 14 149/81 (103) 98 Nasal Cannula 2.00 02/17/23 11:33 35.9 02/17/23 11:02 100 Nasal Cannula 2.00 02/17/23 11:00 51 14 117/68 (84) 100 Nasal Cannula 2.00 02/17/23 10:00 50 19 116/75 (89) 100 Nasal Cannula 2.00 02/17/23 09:00 54 16 133/80 (97) 100 Nasal Cannula 2.00 I & O 02/18/23 07:00 Intake Total 2500 ml Output Total 975 ml Balance 1525 ml Height & Weight Height: 5'9.00" Weight: 250lbs. 3.0oz. [id number]; 23.05 BMI Method:Stated General Appearance: No Apparent Distress, Chronically ill HEENT: PERRL/EOMI, Normal ENT Inspection Neck: Normal Inspection, Non Tender Respiratory: Chest Non Tender, No Accessory Muscle Use, No Respiratory Distress Cardiovascular: Regular Rate, Rhythm, No Murmur Capillary Refill: Less Than 3 Seconds Gastrointestinal: non tender, soft (midline scar lower abdomen and right lower quadrant) Extremity: No Calf Tenderness, No Pedal Edema Neurologic/Psychiatric: Alert, Disoriented Skin: Warm/Dry, Pallor Lymphatic: No Adenopathy Results Lab Laboratory Tests 02/16/23 15:10 02/17/23 04:49 02/18/23 03:58 Assessment/Plan Assessment/Plan as above Critical Care: Critically Ill Patient Time spent with patient (mins): 15 SHARRI PORTER MD Feb 18, 2023 09:05
[2023-02-18] MEDS: PANTOPRAZOLE 40 MG (PROTONIX) VIAL IV SCH ×2 (09:10→20:04)
[2023-02-18] MEDS: NICOTINE PATCH REMOVAL TP SCH (09:10)
[2023-02-18] MEDS: NICOTINE 21 MG (NICODERM) PATCH TD SCH (09:10)
--- NOTE | 2023-02-18 10:02 | Progress Note - Surgery ---
Subjective Date Seen by a Provider: Feb 18, 2023 Time Seen by a Provider: 09:58 Subjective/Events-last exam Patient laying in bed. Hgb stable. Nursing reporting that they feel he may be aspirating on clears. No family at bedside. Objective Exam Vital Signs Date Time Temp Pulse Resp B/P (MAP) Pulse Ox O2 Delivery O2 Flow Rate FiO2 02/18/23 09:00 52 22 114/61 (78) 97 Nasal Cannula 2.00 02/18/23 08:00 51 23 130/71 (90) 100 Nasal Cannula 2.00 02/18/23 07:53 36.2 02/18/23 07:43 99 Nasal Cannula 2.00 02/18/23 07:00 50 02/18/23 07:00 50 28 138/78 (98) 100 Nasal Cannula 2.00 02/18/23 06:25 51 113/64 02/18/23 06:07 47 19 120/74 (89) 100 Nasal Cannula 2.00 02/18/23 05:06 46 22 127/73 (91) 100 Nasal Cannula 2.00 02/18/23 04:34 35.8 47 16 121/66 (84) 100 Nasal Cannula 2.00 02/18/23 04:00 99 Nasal Cannula 2.00 02/18/23 03:17 100 Nasal Cannula 2.00 02/18/23 03:06 51 16 142/75 (97) 100 Nasal Cannula 2.00 02/18/23 02:34 52 16 144/79 (100) 99 Nasal Cannula 2.00 02/18/23 02:24 51 143/82 02/18/23 01:22 50 15 112/64 (80) 99 Nasal Cannula 2.00 02/18/23 01:16 52 02/18/23 00:00 35.9 50 16 151/103 (119) 99 Nasal Cannula 2.00 02/17/23 23:59 99 Nasal Cannula 2.00 02/17/23 23:11 48 16 145/81 (102) 99 Nasal Cannula 2.00 02/17/23 22:30 50 20 149/82 (104) 100 Nasal Cannula 2.00 02/17/23 22:15 48 20 134/90 (105) 100 Nasal Cannula 2.00 02/17/23 22:10 100 Nasal Cannula 2.00 02/17/23 22:00 48 20 145/84 (104) 100 Nasal Cannula 2.00 02/17/23 21:45 49 20 152/88 (109) 100 Nasal Cannula 2.00 02/17/23 21:30 48 20 154/84 (107) 100 Nasal Cannula 2.00 02/17/23 20:00 49 14 145/84 (104) 100 Nasal Cannula 2.00 02/17/23 20:00 99 Nasal Cannula 2.00 02/17/23 19:23 35.3 51 20 155/93 (113) 100 Nasal Cannula 2.00 02/17/23 19:00 49 02/17/23 18:29 51 153/94 02/17/23 18:00 46 15 153/94 (113) 100 Nasal Cannula 2.00 02/17/23 17:00 49 16 154/87 (109) 100 Nasal Cannula 2.00 02/17/23 16:00 51 16 155/88 (110) 100 Nasal Cannula 2.00 02/17/23 16:00 98 Nasal Cannula 2.00 02/17/23 15:00 49 16 162/93 (116) 100 Nasal Cannula 2.00 02/17/23 14:32 100 Nasal Cannula 2.00 02/17/23 14:29 47 155/81 02/17/23 14:00 47 14 155/81 (105) 100 Nasal Cannula 2.00 02/17/23 13:00 50 17 114/74 (87) 99 Nasal Cannula 2.00 02/17/23 12:28 51 02/17/23 12:00 98 Nasal Cannula 2.00 02/17/23 12:00 50 14 149/81 (103) 98 Nasal Cannula 2.00 02/17/23 11:33 35.9 02/17/23 11:02 100 Nasal Cannula 2.00 02/17/23 11:00 51 14 117/68 (84) 100 Nasal Cannula 2.00 02/17/23 10:00 50 19 116/75 (89) 100 Nasal Cannula 2.00 I & O 02/18/23 07:00 Intake Total 2500 ml Output Total 975 ml Balance 1525 ml Capillary Refill : Less Than 3 Seconds General Appearance: No Apparent Distress, Chronically ill HEENT: PERRL/EOMI, Normal ENT Inspection Neck: Normal Inspection, Non Tender Respiratory: Chest Non Tender, No Accessory Muscle Use, No Respiratory Distress Cardiovascular: Regular Rate, Rhythm, No Murmur Gastrointestinal: non tender, soft (midline scar lower abdomen and right lower quadrant) Extremity: No Calf Tenderness, No Pedal Edema Neurologic/Psychiatric: Alert, Disoriented Skin: Warm/Dry, Pallor Lymphatic: No Adenopathy Results Lab Laboratory Tests 02/18/23 03:58: White Blood Count 7.8, Red Blood Count 2.88L, Hemoglobin 9.1L, Hematocrit 27L, Mean Corpuscular Volume 93, Mean Corpuscular Hemoglobin 32, Mean Corpuscular Hemoglobin Concent 34, Red Cell Distribution Width 17.2H, Platelet Count 136, Mean Platelet Volume 11.9, Immature Granulocyte % (Auto) 1, Neutrophils (%) (Auto) 75, Lymphocytes (%) (Auto) 16, Monocytes (%) (Auto) 6, Eosinophils (%) (Auto) 2, Basophils (%) (Auto) 0, Neutrophils # (Auto) 5.9, Lymphocytes # (Auto) 1.3, Monocytes # (Auto) 0.5, Eosinophils # (Auto) 0.1, Basophils # (Auto) 0.0, Immature Granulocyte # (Auto) 0.0, Percent Immature Platelet Fraction 7.5, Sodium Level 142, Potassium Level 3.9, Chloride Level 114H, Carbon Dioxide Level 20L, Anion Gap 8, Blood Urea Nitrogen 28H, Creatinine 0.71, Estimat Glomerular Filtration Rate 90, BUN/Creatinine Ratio 39, Glucose Level 91, Calcium Level 8.6, Phosphorus Level 2.6, Magnesium Level 2.2 Microbiology 02/15/23 MRSA Screen - Final, Complete MRSA not isolated Assessment/Plan Assessment/Plan Assessment/Plan melena anemia-likely from upper gi tract pyloric ulcer duodenitis patient admitted to ICU Protonix Transfuse prbc and follow hgb will make npo due to concerns of aspiration swallow study tomorrow Iv fluids KIARA SENA DO Feb 18, 2023 10:02
--- NOTE | 2023-02-18 11:29 | Progress Note - Hospitalist ---
Subjective HPI/CC On Admission Date Seen by Provider: Feb 18, 2023 Patient is an 87-year-old male with past medical history of dementia who presents to the emergency department due to syncope. He is unable to provide much history and defers to his . He has no complaints at this time. His states that he fell 2 days ago she believes. He has been getting more weak and she thought this was due to his back pain. He had a syncopal episode this morning so decided to bring him in for evaluation. In the emergency department he was found to have a hemoglobin of 4.6 and was having black tarry stools. His is unaware how long this has been going on but did notice darker stools this morning. He is unable to tell me when this started. He does not believe he has ever had a colonoscopy. He also tells me he has had no surgeries though he has 2 large surgical scars on his abdomen. When asked about these he is unable to recall what surgeries he has had. He was given 2 units of blood and was admitted to the ICU for further management. Subjective/Events-last exam Pt laying in bed. Does not respond much. On Precedex. No family at bedside. Objective Exam Vital Signs Vital Signs Date Time Temp Pulse Resp B/P (MAP) Pulse Ox O2 Delivery O2 Flow Rate FiO2 02/18/23 11:16 36.4 02/18/23 11:00 57 22 97/55 (69) 94 Nasal Cannula 2.00 Capillary Refill : Less Than 3 Seconds General Appearance: Chronically ill, Thin Respiratory: Lungs Clear, No Respiratory Distress Cardiovascular: Regular Rate, Rhythm, No Murmur Gastrointestinal: Normal Bowel Sounds, Soft Neurologic/Psychiatric: Disoriented, Other (sleepy, openes eyes when spoken to but did not answer any questions) Results/Procedures Lab Laboratory Tests 02/18/23 03:58 Patient resulted labs reviewed. Imaging: Reviewed Imaging Report Assessment/Plan Assessment and Plan Assess & Plan/Chief Complaint Hemorrhagic Shock GI Bleed- likely upper HTN BP improved Continue IVF RN concerned about aspiration so switched to NPO and speech eval ordered Hgb stable Surgery consulted EGD revealed ulcer and duodenitis PPI Continue to hold home BP meds and ASA Dementia Delirium Now on precedex for agitation- decrease rate as able Per RN has gotten quite agitated when weaned- risperdal added Will add prn ativan as well to try to wean off precedex Radius fracture minimally displaced oblique fracture Spoke with Ortho Outpatient follow up Abnormal chest x-ray new abnormal density in right apex Needs follow up in 2 weeks DVT ppx: SCDs only Critical Care Critically Ill Patient CHET CHAMPAGNE MD Feb 18, 2023 11:29
[2023-02-18 15:15] VITALS: BP 122/65
[2023-02-18] MEDS: risperiDONE 0.5 MG (RisperDAL) TABLET PO SCH (19:50)
[2023-02-19] MEDS: RT-ALBUTEROL SULF 2.5 MG/3 ML PRE-MIX VIAL INH SCH ×4 (02:26→22:52)
[2023-02-19 03:42] LABS: BASOPHILS % (AUTO) 1 % (0-10); EOSINOPHILS % (AUTO) 1 % (0-10); HEMATOCRIT 29 % (40-54); HEMOGLOBIN 9.5 g/dL (13.3-17.7); LYMPHOCYTES # (AUTO) 0.7 10^3/uL (1.0-4.0); LYMPHOCYTES % (AUTO) 16 % (12-44); MEAN CORPUSCULAR HEMOGLOBIN 32 pg (25-34); MEAN CORPUSCULAR HGB CONC 33 g/dL (32-36); MEAN CORPUSCULAR VOLUME 94 fL (80-99); MEAN PLATELET VOLUME 11.5 fL (9.0-12.2); MONOCYTES # (AUTO) 0.5 10^3/uL (0.0-1.0); MONOCYTES % (AUTO) 12 % (0-12); NEUTROPHILS # (AUTO) 3.1 10^3/uL (1.8-7.8); NEUTROPHILS % (AUTO) 71 % (42-75); PLATELET COUNT 146 10^3/uL (130-400); WHITE BLOOD COUNT 4.4 10^3/uL (4.3-11.0)
[2023-02-19 03:57] LABS: POTASSIUM 4.2 MMOL/L (3.6-5.0)
[2023-02-19 03:59] LABS: CALCIUM 8.8 MG/DL (8.5-10.1)
[2023-02-19 04:03] LABS: CREATININE SERUM 0.76 MG/DL (0.60-1.30); PHOSPHORUS 3.5 MG/DL (2.3-4.7)
[2023-02-19 04:05] LABS: MAGNESIUM 2.1 MG/DL (1.6-2.4)
[2023-02-19] MEDS: DexMEDEtomidine 250 ML DRIP 250 ML IV SCH (07:36)
[2023-02-19] MEDS: PANTOPRAZOLE 40 MG (PROTONIX) VIAL IV SCH ×2 (08:06→20:08)
[2023-02-19] MEDS: NICOTINE 21 MG (NICODERM) PATCH TD SCH (08:06)
[2023-02-19] MEDS: NICOTINE PATCH REMOVAL TP SCH (08:07)
--- NOTE | 2023-02-19 08:22 | Diagnostic Imaging Report ---
CHEST 1 VIEW, AP/PA ONLY Indication: Increasing oxygen needs Comparison: 02/15/2023 Findings: New consolidations have developed in the medial aspect the right lung base. No pleural effusion or pneumothorax. Normal cardiomediastinal silhouette. Stable left PICC. Impression: 1. New right basilar consolidations are likely due to pneumonia or aspiration. Dictated by: Dictated on workstation # [id number]
--- NOTE | 2023-02-19 09:28 | Progress Note - Surgery ---
Subjective Date Seen by a Provider: Feb 19, 2023 Time Seen by a Provider: 09:26 Subjective/Events-last exam Laying in bed. Not oriented. Not having abdominal pain. Hgb stable. No family at bedside. Objective Exam Vital Signs Date Time Temp Pulse Resp B/P (MAP) Pulse Ox O2 Delivery O2 Flow Rate FiO2 02/19/23 09:00 56 91/53 (66) 95 Nasal Cannula 2.00 02/19/23 08:39 92 Nasal Cannula 1.00 02/19/23 08:00 36.2 02/19/23 08:00 56 138/81 (100) 93 Nasal Cannula 2.00 02/19/23 07:59 96 Nasal Cannula 2.00 02/19/23 07:36 55 150/72 02/19/23 07:25 55 02/19/23 07:00 55 129/69 (89) 94 Nasal Cannula 2.00 02/19/23 06:00 54 150/72 (98) 98 Nasal Cannula 2.00 02/19/23 05:00 58 145/77 (99) 96 Nasal Cannula 2.00 02/19/23 04:00 57 138/70 (92) 96 Nasal Cannula 2.00 02/19/23 03:42 96 Nasal Cannula 2.00 02/19/23 03:40 36.0 58 96 Nasal Cannula 2.00 02/19/23 03:00 55 134/68 (90) 96 Nasal Cannula 2.00 02/19/23 02:27 97 Room Air 02/19/23 02:16 94 Nasal Cannula 2.00 02/19/23 02:10 61 131/67 02/19/23 02:00 58 18 131/67 (88) 91 Room Air 02/19/23 01:00 58 22 118/60 (79) 91 Room Air 02/19/23 01:00 62 02/19/23 00:33 94 Room Air 02/19/23 00:03 36.3 02/19/23 00:00 59 120/65 (83) 91 Room Air 02/18/23 23:00 62 96/53 (67) 93 Room Air 02/18/23 22:12 61 107/81 02/18/23 22:00 65 27 107/81 (90) 93 Room Air 02/18/23 21:40 95 Room Air 02/18/23 21:02 36.2 Room Air 02/18/23 21:00 59 21 122/81 (95) 94 Room Air 02/18/23 20:00 59 19 117/65 (82) Room Air 02/18/23 19:36 Room Air 02/18/23 19:30 68 115/67 (83) 93 Room Air 02/18/23 19:20 56 21 119/67 (84) 95 Room Air 02/18/23 19:15 66 26 86/57 (67) Room Air 02/18/23 19:02 72 26 104/58 (73) Room Air 02/18/23 19:00 68 02/18/23 19:00 68 16 85/54 (64) 94 Room Air 02/18/23 18:00 57 20 126/69 (88) 96 Room Air 02/18/23 17:00 59 20 102/60 (74) 94 Room Air 02/18/23 16:23 57 107/57 02/18/23 16:00 57 18 107/57 (74) 95 Room Air 02/18/23 16:00 36.1 02/18/23 16:00 99 Room Air 02/18/23 15:15 36.4 54 95 21 02/18/23 15:00 56 19 115/62 (79) 96 Room Air 02/18/23 14:43 95 Room Air 0.00 02/18/23 14:00 54 20 122/65 (84) 95 Room Air 02/18/23 13:00 56 20 100/56 (71) 94 Room Air 02/18/23 12:29 59 02/18/23 12:23 53 105/64 02/18/23 12:00 53 20 105/64 (78) 95 Room Air 02/18/23 11:47 99 Nasal Cannula 2.00 02/18/23 11:16 36.4 02/18/23 11:00 57 22 97/55 (69) 94 Room Air 02/18/23 10:00 48 20 118/63 (81) 95 Room Air 02/18/23 09:57 96 Room Air 0.00 I & O 02/19/23 07:00 Intake Total 50 ml Output Total 875 ml Balance -825 ml Capillary Refill : Less Than 3 Seconds General Appearance: No Apparent Distress, Chronically ill HEENT: PERRL/EOMI, Normal ENT Inspection Neck: Normal Inspection, Non Tender Respiratory: Chest Non Tender, No Accessory Muscle Use, No Respiratory Distress Cardiovascular: Regular Rate, Rhythm, No Murmur Gastrointestinal: non tender, soft (midline scar lower abdomen and right lower quadrant) Extremity: No Calf Tenderness, No Pedal Edema Neurologic/Psychiatric: Alert, Disoriented Skin: Warm/Dry, Pallor Lymphatic: No Adenopathy Results Lab Laboratory Tests 02/19/23 03:35: White Blood Count 4.4, Red Blood Count 3.02L, Hemoglobin 9.5L, Hematocrit 29L, Mean Corpuscular Volume 94, Mean Corpuscular Hemoglobin 32, Mean Corpuscular Hemoglobin Concent 33, Red Cell Distribution Width 17.2H, Platelet Count 146, Mean Platelet Volume 11.5, Immature Granulocyte % (Auto) 1, Neutrophils (%) (Auto) 71, Lymphocytes (%) (Auto) 16, Monocytes (%) (Auto) 12, Eosinophils (%) (Auto) 1, Basophils (%) (Auto) 1, Neutrophils # (Auto) 3.1, Lymphocytes # (Auto) 0.7L, Monocytes # (Auto) 0.5, Eosinophils # (Auto) 0.0, Basophils # (Auto) 0.0, Immature Granulocyte # (Auto) 0.0, Sodium Level 143, Potassium Level 4.2, Chloride Level 115H, Carbon Dioxide Level 17L, Anion Gap 11, Blood Urea Nitrogen 28H, Creatinine 0.76, Estimat Glomerular Filtration Rate 88, BUN/Creatinine Ratio 37, Glucose Level 82, Calcium Level 8.8, Phosphorus Level 3.5, Magnesium Level 2.1 Microbiology 02/15/23 MRSA Screen - Final, Complete MRSA not isolated Assessment/Plan Assessment/Plan Assessment/Plan melena anemia-likely from upper gi tract pyloric ulcer duodenitis patient admitted to ICU Protonix Transfuse prbc and follow hgb Iv fluids diet per recs of swallow KIARA Mane DO Feb 19, 2023 09:28
[2023-02-19] MEDS: LORazepam 0.5 MG (ATIVAN) TABLET PO PRN ×2 (10:43→20:10)
--- NOTE | 2023-02-19 10:50 | Progress Note - Hospitalist ---
Subjective HPI/CC On Admission Date Seen by Provider: Feb 19, 2023 Patient is an 87-year-old male with past medical history of dementia who presents to the emergency department due to syncope. He is unable to provide much history and defers to his . He has no complaints at this time. His states that he fell 2 days ago she believes. He has been getting more weak and she thought this was due to his back pain. He had a syncopal episode this morning so decided to bring him in for evaluation. In the emergency department he was found to have a hemoglobin of 4.6 and was having black tarry stools. His is unaware how long this has been going on but did notice darker stools this morning. He is unable to tell me when this started. He does not believe he has ever had a colonoscopy. He also tells me he has had no surgeries though he has 2 large surgical scars on his abdomen. When asked about these he is unable to recall what surgeries he has had. He was given 2 units of blood and was admitted to the ICU for further management. Subjective/Events-last exam Pt laying in bed. On precedex. No ROS possible. Objective Exam Vital Signs Vital Signs Date Time Temp Pulse Resp B/P (MAP) Pulse Ox O2 Delivery O2 Flow Rate FiO2 02/19/23 10:00 57 88/58 (68) 92 Nasal Cannula 2.00 02/19/23 08:00 36.2 02/19/23 02:00 18 02/18/23 15:15 21 Capillary Refill : Less Than 3 Seconds General Appearance: No Apparent Distress, Thin Respiratory: Lungs Clear, No Respiratory Distress Cardiovascular: No Murmur, Bradycardia Gastrointestinal: Normal Bowel Sounds, Soft Neurologic/Psychiatric: Alert, Disoriented Results/Procedures Lab Laboratory Tests 02/19/23 03:35 Patient resulted labs reviewed. Imaging: Reviewed Imaging Report Assessment/Plan Assessment and Plan Assess & Plan/Chief Complaint Hemorrhagic Shock GI Bleed- likely upper HTN BP lower agin this morning- may be due to sedation, monitor Continue IVF Speech therapy ordered Hgb stable Surgery consulted EGD revealed ulcer and duodenitis PPI Continue to hold home BP meds and ASA Dementia Delirium Now on precedex for agitation- decrease rate as able Per RN has gotten quite agitated when weaned- risperdal added Continue prn ativan as well to try to wean off precedex Radius fracture minimally displaced oblique fracture Spoke with Ortho Outpatient follow up Abnormal chest x-ray new abnormal density in right apex Needs follow up in 2 weeks DVT ppx: SCDs only Critical Care Critically Ill Patient CHET CHAMPAGNE MD Feb 19, 2023 10:50
--- NOTE | 2023-02-19 10:52 | Tele-ICU Progress Note ---
Subjective Date Seen by a Provider: Feb 19, 2023 Time Seen by a Provider: 09:37 Subjective/Events-last exam (Tele-ICU Physician , Progress Note ) Service provided via interactive audio and video telecommunications E-CARE system to a patient admitted to ICU bed in [facility]. Patient is seen today due to persistent need of ICU care Available chart/ vitals / labs / Images reviewed Video assessment done using teleICU camera, rest of exam as per RN Discussed with RN Events overnight : Afebrile hemodynamically stable Respiratory - 1L ( ra / 2L ) I/O = Drips: Pressors- no Hospital course: (02/15) 87y/o M admitted with GIB. Hgb 4.6. 02/16- EGD -ulcer with duodenitis , HB stable, precedex for deliriom 02/19 - on precedex still, suspected aspiration - NPO A/P GIB - ppi drip OFF EGD - ulcer with duodenitis ABLA - s/p 4 unit pRBC = HB stable now , now hb is 9.1gm Annmarie[ected aspiration by bedside - no fever , coug , on RA , CXr with possible PNA/pneumonitis? - off abx now - to folow , low treshould for abx -speach eval KAELA - ns 100 /h - improved , stop IVF with hypoxia Encephalopathy/ agitation , dementia / delirium - no focal deficit - on precedex 1.5 for delirium - h/o odementia thrombocytopenia - delutional- resolved Hypoxia - 4 l , wheexing , presumed VO with IVF and prbc - stop IVF, nebs COPD - nebs prn Radius fracture -Minimally displaced oblique fracture -Outpatient follow up per ortho Nutritions - NPO Lines : PICC [facility] 02/15 , (Central Line Necessity Reviewed) Good: + OG: Nutrition: npo Analgesia: Anxiety/ delirium VTE Prophylaxis: scd Stress Ulcer Prophylaxis: Plans in collaboration with bedside consultants and IM MDs. Discussed with RN to reach out if any questions or concerns Case and care daily discussed on multidisciplinary rounds ( RN, PharmD, Econometrician , Respiratory Therapy, fly worker ) A total of 20 minutes of critical care time was devoted to this patient today, required to treat and/or prevent further deterioration of critical care condition ( as above ) . I am remotely monitoring this patient from another state. I am unable to do the bedside exam, and history/physical and pertinent information is taken from other notes in the computer and bedside staff. Sepsis Event Evaluation Height, Weight, BMI Height: 5'9.00" Weight: 250lbs. 3.0oz. [id number]; 22.64 BMI Method:Stated Exam Exam Patient acknowledged, consented, and participated in this virtual visit which was conducted using real time audio/video Vital Signs Date Time Temp Pulse Resp B/P (MAP) Pulse Ox O2 Delivery O2 Flow Rate FiO2 02/19/23 10:00 57 88/58 (68) 92 Nasal Cannula 2.00 02/19/23 09:00 56 91/53 (66) 95 Nasal Cannula 2.00 02/19/23 08:39 92 Nasal Cannula 1.00 02/19/23 08:00 36.2 02/19/23 08:00 56 138/81 (100) 93 Nasal Cannula 2.00 02/19/23 07:59 96 Nasal Cannula 2.00 02/19/23 07:36 55 150/72 02/19/23 07:25 55 02/19/23 07:00 55 129/69 (89) 94 Nasal Cannula 2.00 02/19/23 06:00 54 150/72 (98) 98 Nasal Cannula 2.00 02/19/23 05:00 58 145/77 (99) 96 Nasal Cannula 2.00 02/19/23 04:00 57 138/70 (92) 96 Nasal Cannula 2.00 02/19/23 03:42 96 Nasal Cannula 2.00 02/19/23 03:40 36.0 58 96 Nasal Cannula 2.00 02/19/23 03:00 55 134/68 (90) 96 Nasal Cannula 2.00 02/19/23 02:27 97 Room Air 02/19/23 02:16 94 Nasal Cannula 2.00 02/19/23 02:10 61 131/67 02/19/23 02:00 58 18 131/67 (88) 91 Room Air 02/19/23 01:00 58 22 118/60 (79) 91 Room Air 02/19/23 01:00 62 02/19/23 00:33 94 Room Air 02/19/23 00:03 36.3 02/19/23 00:00 59 120/65 (83) 91 Room Air 02/18/23 23:00 62 96/53 (67) 93 Room Air 02/18/23 22:12 61 107/81 02/18/23 22:00 65 27 107/81 (90) 93 Room Air 02/18/23 21:40 95 Room Air 02/18/23 21:02 36.2 Room Air 02/18/23 21:00 59 21 122/81 (95) 94 Room Air 02/18/23 20:00 59 19 117/65 (82) Room Air 02/18/23 19:36 Room Air 02/18/23 19:30 68 115/67 (83) 93 Room Air 02/18/23 19:20 56 21 119/67 (84) 95 Room Air 02/18/23 19:15 66 26 86/57 (67) Room Air 02/18/23 19:02 72 26 104/58 (73) Room Air 02/18/23 19:00 68 02/18/23 19:00 68 16 85/54 (64) 94 Room Air 02/18/23 18:00 57 20 126/69 (88) 96 Room Air 02/18/23 17:00 59 20 102/60 (74) 94 Room Air 02/18/23 16:23 57 107/57 02/18/23 16:00 57 18 107/57 (74) 95 Room Air 02/18/23 16:00 36.1 02/18/23 16:00 99 Room Air 02/18/23 15:15 36.4 54 95 21 02/18/23 15:00 56 19 115/62 (79) 96 Room Air 02/18/23 14:43 95 Room Air 0.00 02/18/23 14:00 54 20 122/65 (84) 95 Room Air 02/18/23 13:00 56 20 100/56 (71) 94 Room Air 02/18/23 12:29 59 02/18/23 12:23 53 105/64 02/18/23 12:00 53 20 105/64 (78) 95 Room Air 02/18/23 11:47 99 Nasal Cannula 2.00 02/18/23 11:16 36.4 02/18/23 11:00 57 22 97/55 (69) 94 Room Air I & O 02/19/23 07:00 Intake Total 50 ml Output Total 875 ml Balance -825 ml Height & Weight Height: 5'9.00" Weight: 250lbs. 3.0oz. 113.565506gr; 22.64 BMI Method:Stated General Appearance: No Apparent Distress, Thin HEENT: PERRL/EOMI, Normal ENT Inspection Neck: Normal Inspection, Non Tender Respiratory: Lungs Clear, No Respiratory Distress Cardiovascular: No Murmur, Bradycardia Capillary Refill: Less Than 3 Seconds Gastrointestinal: non tender, soft (midline scar lower abdomen and right lower quadrant) Extremity: No Calf Tenderness, No Pedal Edema Neurologic/Psychiatric: Alert, Disoriented Skin: Warm/Dry, Pallor Lymphatic: No Adenopathy Results Lab Laboratory Tests 02/18/23 03:58 02/19/23 03:35 Assessment/Plan Assessment/Plan 1 RYLEE CAMARA MD Feb 19, 2023 10:52
--- NOTE | 2023-02-19 12:55 | ST Dysphagia Evaluation ---
Speech Evaluation-General Medical Diagnosis GI Bleed Onset Date: Feb 15, 2023 Therapy Diagnosis Therapy Diagnosis: Mild Oropharyngeal Dysphagia Precautions Precautions: Fall, Pressure Ulcer, Aspiration Precautions/Isolations: Aspiration, Fall Prevention, Standard Precautions, Pressure Ulcer Referral Referring Physician: Dr. Higginbotham Reason for Referral: Evaluation/Treatment Medical History Reviewed History: Yes Speech PLF/Current-Dysphagia Prior Level of Function Due to the patient's known diagnosis of dementia, accurate prior level of function information was not received by the clinician. Subjective Per RN, the patient's Precedex was recently reduced and the patient was waking up. Upon entrance to the room, the patient is sleeping but wakes to a verbal greeting. To aid in alertness, the clinician cleans the patient's face with a warm wash cloth and places dim lights on in the room. The patient's head of bed is elevated for safe swallowing posture. The patient displays a rigorous cough after waking, producing thick, yellow/green phlegm. The clinician allows the patient time to cough and clear to ensure the bedside evaluation would not be impacted by the baseline cough. Oral Motor Skills Dentition: Edentalous (The patient reported he has dentures but none were located in the room.) Ability to Follow Directions: Good Oral Expression Ability: Moderate Impairment Voice Voice Phonatory-Based Quality: Weak Voice Pitch: Normal Voice Loudness: Normal Face Facial Symmetry: Symmetrical Oral-Facial Assessment Oral-Facial Dentition: Normal Labial Seal Description: Weak Smile: Normal Lingual Protrusion: Normal Lingual ROM: Normal Volitional Dry Swallow: Yes Voluntary Cough: Yes Can Clear Throat Volitionally: Yes Productive Cough: Yes Productive Throat Clear: Yes Dysphagia Evaluation Consistencies Presented: Regular, Thin Liquid (ice chip, teaspoons, straw drinks), Pureed The patient displayed appropriate acceptance of bolus material from the teaspoon and straw. Due to the edentulous state, the patient was unable to masticate the solid consistency therefore it was expectorated into a tissue. Laryngeal elevation was present to palpation. The patient was provided three ice chips, five teaspoons, multiple single and consecutive straw drinks of thin liquid, puree, and solid consistencies. Overt s/s of suspected aspiration were not present with any consistency tested and the patient's vocal quality remained consistently clear following the swallow. The patient does display consistent belching following the swallow with thin liquids. Dietary Recommendations: Pureed Liquid Recommendations: Thin Recommendations: - PU4 (puree) with thin liquids, as tolerated. - Fully upright and alert for P.O. intake. - Small, single bites and sips. - Feeding assistance, as necessary. - Place pills in puree for administration. - Monitor for s/s of suspected aspiration with P.O. intake. If demonstrated, pl ease contact speech pathology. - Speech pathology to monitor the patient for diet tolerance and safety with P.O. intake. The results were shared with the patient and the RN immediately following completion. The recommendations were provided on the in-room white board by this clinician. Speech Short Term Goals Short Term Goals Short Term Goals 1. The patient, staff, and family will follow safe swallowing strategies with 90% accuracy, independently. Time Frame-STG: Two Days. Speech Foreclosure Specialist Goals Foreclosure Specialist Goals 1. The patient will tolerate the leasts restrictive diet consistency without s/s of suspected aspiration. Time Frame: Three Days. Speech-Plan Treatment Plan Speech Therapy Treatment Plan: Continue Plan of Care Treatment Duration: Feb 21, 2023 Frequency: 3 times per week Estimated Hrs Per Day: .25 hour per day Rehab Potential: Fair Pt/Family Agrees to Plan: Yes Safety Risks/Education Teaching Recipient: Patient Teaching Methods: Discussion Response to Teaching: Reinforcement Needed Education Topics Provided: Results, Plan of Care, Safe Swallowing Precautions, Recommendations Time Speech Therapy Time In: 09:26 Speech Therapy Time Out: 09:51 DATE: Feb 19, 2023 Total Billed Time: 25 Billed Treatment Time 1, ASHLEY CORDOVA [facility] Feb 19, 2023 12:55
[2023-02-19] MEDS: risperiDONE 0.5 MG (RisperDAL) TABLET PO SCH (20:08)
[2023-02-19] MEDS ORDERED: NS IV 500 ML 500 ML IV PRN (20:30)
[2023-02-20] MEDS: RT-ALBUTEROL SULF 2.5 MG/3 ML PRE-MIX VIAL INH SCH ×4 (02:24→20:57)
[2023-02-20 03:39] LABS: BASOPHILS % (AUTO) 0 % (0-10); EOSINOPHILS # (AUTO) 0.2 10^3/uL (0.0-0.3); EOSINOPHILS % (AUTO) 2 % (0-10); HEMATOCRIT 28 % (40-54); HEMOGLOBIN 9.4 g/dL (13.3-17.7); LYMPHOCYTES # (AUTO) 1.5 10^3/uL (1.0-4.0); LYMPHOCYTES % (AUTO) 23 % (12-44); MEAN CORPUSCULAR HEMOGLOBIN 32 pg (25-34); MEAN CORPUSCULAR HGB CONC 33 g/dL (32-36); MEAN CORPUSCULAR VOLUME 95 fL (80-99); MEAN PLATELET VOLUME 11.3 fL (9.0-12.2); MONOCYTES # (AUTO) 0.6 10^3/uL (0.0-1.0); MONOCYTES % (AUTO) 10 % (0-12); NEUTROPHILS # (AUTO) 4.2 10^3/uL (1.8-7.8); NEUTROPHILS % (AUTO) 65 % (42-75); PLATELET COUNT 182 10^3/uL (130-400); WHITE BLOOD COUNT 6.4 10^3/uL (4.3-11.0)
[2023-02-20 03:54] LABS: POTASSIUM 3.7 MMOL/L (3.6-5.0)
[2023-02-20 03:55] LABS: CALCIUM 8.9 MG/DL (8.5-10.1)
[2023-02-20 03:59] LABS: CREATININE SERUM 0.85 MG/DL (0.60-1.30); PHOSPHORUS 2.7 MG/DL (2.3-4.7)
[2023-02-20 04:01] LABS: MAGNESIUM 2.1 MG/DL (1.6-2.4)
[2023-02-20] MEDS: POTASSIUM CL 10MEQ/50ML IVPB 50 ML IV SCH (05:24)
[2023-02-20] MEDS: MAGNESIUM 1 GM/100 ML IVPB 100 ML IV SCH (05:25)
[2023-02-20] MEDS: KCL 20 MEQ TAB (K-DUR) PO SCH (05:25)
[2023-02-20] MEDS ORDERED: KCL 20 MEQ TAB (K-DUR) PO ONE (06:00)
[2023-02-20] MEDS ORDERED: POTASSIUM BICARB 20 MEQ (EFFER-K) TABLET PO ONE ×2 (06:00)
[2023-02-20] MEDS: LORazepam 0.5 MG (ATIVAN) TABLET PO PRN ×2 (08:16→18:09)
[2023-02-20] MEDS: NICOTINE 21 MG (NICODERM) PATCH TD SCH (08:16)
[2023-02-20] MEDS: NICOTINE PATCH REMOVAL TP SCH (08:16)
[2023-02-20] MEDS: PANTOPRAZOLE 40 MG (PROTONIX) VIAL IV SCH (08:17)
--- NOTE | 2023-02-20 10:02 | Tele-ICU Progress Note ---
Subjective Date Seen by a Provider: Feb 20, 2023 Time Seen by a Provider: 10:02 Subjective/Events-last exam (Tele-ICU Physician , Progress Note ) Service provided via interactive audio and video telecommunications E-CARE system to a patient admitted to ICU bed in [facility]. Patient is seen today due to persistent need of ICU care Available chart/ vitals / labs / Images reviewed Video assessment done using teleICU camera, rest of exam as per RN Discussed with RN Events overnight : Afebrile hemodynamically stable Respiratory - 1L ( ra / 2L ) I/O = neg 300 Drips: Pressors- no Hospital course: (02/15) 87y/o M admitted with GIB. Hgb 4.6. 02/16- EGD -ulcer with duodenitis , HB stable, precedex for deliriom 02/19 - on precedex still, suspected aspiration - NPO 02/20- precedex 0.3-> off after ativan PO A/P Susected aspiration by bedside staff - no fever , coug , on RA , CXr with possible PNA/pneumonitis? - off abx now - to folow , low treshould for abx -speach eval done Encephalopathy/ agitation , dementia / delirium - no focal deficit - on precedex 0.3 for delirium-off after ativan PO prn - h/o dementia - close to baseline as per Hypoxia - 4 l , wheexing , presumed VO with IVF and prbc - stop IVF, nebs GIB - on presentation - ppi drip OFF EGD - ulcer with duodenitis ABLA - s/p 4 unit pRBC = HB stable now , now hb is 9.1gm COPD - nebs prn Radius fracture IRRIGATOR OVERHEAD -Minimally displaced oblique fracture -Outpatient follow up per ortho Mild Oropharyngeal Dysphagia, Nutritions - as per speach - modified diet thrombocytopenia - delutional- resolved KAELA - ns 100 /h - improved , stopped IVF with hypoxia 02/19 Lines : PICC rig 02/15 , (Central Line Necessity Reviewed) Good: + OG: Nutrition: npo Analgesia: Anxiety/ delirium + VTE Prophylaxis: scd - when agitated he will take them off Stress Ulcer Prophylaxis: ppi bid iv Plans in collaboration with bedside consultants and IM MDs. Discussed with RN to reach out if any questions or concerns Case and care daily discussed on multidisciplinary rounds ( RN, PharmD, It Service Continuity Supervisor , Respiratory Therapy, concrete worker ) A total of 20 minutes of critical care time was devoted to this patient today, required to treat and/or prevent further deterioration of critical care condition ( as above ) . I am remotely monitoring this patient from another state. I am unable to do the bedside exam, and history/physical and pertinent information is taken from other notes in the computer and bedside staff. Sepsis Event Evaluation Height, Weight, BMI Height: 5'9.00" Weight: 250lbs. 3.0oz. 113.496532au; 22.51 BMI Method:Stated Exam Exam Patient acknowledged, consented, and participated in this virtual visit which was conducted using real time audio/video Vital Signs Date Time Temp Pulse Resp B/P (MAP) Pulse Ox O2 Delivery O2 Flow Rate FiO2 02/20/23 09:44 Nasal Cannula 3.00 02/20/23 09:00 86 91/48 (62) 92 Nasal Cannula 2.00 02/20/23 08:00 83 110/69 (83) 96 Nasal Cannula 2.00 02/20/23 08:00 95 Nasal Cannula 2.00 02/20/23 07:38 36.2 02/20/23 07:30 90 02/20/23 07:00 77 27 113/63 (80) 96 Nasal Cannula 2.00 02/20/23 06:41 96 Nasal Cannula 2.00 02/20/23 06:00 73 21 134/82 (99) 94 Nasal Cannula 2.00 02/20/23 05:00 73 23 105/55 (72) 93 Nasal Cannula 2.00 02/20/23 04:00 78 12 100/54 (69) 93 Nasal Cannula 2.00 02/20/23 03:46 36.6 02/20/23 03:46 95 Nasal Cannula 2.00 02/20/23 03:00 74 18 104/58 (73) 94 Nasal Cannula 2.00 02/20/23 02:24 95 Nasal Cannula 1.00 02/20/23 02:00 66 16 110/63 (79) 95 Nasal Cannula 2.00 02/20/23 01:00 73 77/53 (61) 94 Nasal Cannula 2.00 02/20/23 01:00 73 02/20/23 00:02 70 105/49 (67) 93 Nasal Cannula 2.00 02/19/23 23:18 36.7 02/19/23 23:15 94 Nasal Cannula 2.00 02/19/23 23:00 70 107/50 (69) 94 Nasal Cannula 2.00 02/19/23 22:45 98 Nasal Cannula 1.00 02/19/23 22:00 70 114/56 (75) 97 Nasal Cannula 2.00 02/19/23 21:15 Nasal Cannula 2.00 02/19/23 21:00 66 99/56 (70) 90 Room Air 02/19/23 20:00 59 105/53 (70) 95 Room Air 02/19/23 19:28 95 Room Air 02/19/23 19:27 36.4 02/19/23 19:15 55 111/58 (75) 95 Room Air 02/19/23 19:00 54 02/19/23 18:00 58 95/55 (68) 95 Room Air 02/19/23 17:00 63 87/52 (64) 94 Room Air 02/19/23 16:00 36.1 02/19/23 16:00 96 Room Air 02/19/23 16:00 65 89/44 (59) 94 Room Air 02/19/23 15:30 Room Air 02/19/23 15:00 61 98/55 (69) 94 Nasal Cannula 2.00 02/19/23 14:36 97 Nasal Cannula 1.00 02/19/23 14:00 53 104/59 (74) 96 Nasal Cannula 2.00 02/19/23 13:00 54 111/56 (74) 96 Nasal Cannula 2.00 02/19/23 12:31 54 02/19/23 12:00 96 Nasal Cannula 1.00 02/19/23 12:00 53 112/54 (73) 94 Nasal Cannula 2.00 02/19/23 11:57 36.3 02/19/23 11:36 54 112/54 02/19/23 11:00 53 106/53 (70) 94 Nasal Cannula 2.00 I & O 02/20/23 07:00 Intake Total 950 ml Output Total 875 ml Balance 75 ml Height & Weight Height: 5'9.00" Weight: 250lbs. 3.0oz. 113.095499wu; 22.51 BMI Method:Stated General Appearance: No Apparent Distress, Thin HEENT: PERRL/EOMI, Normal ENT Inspection Neck: Normal Inspection, Non Tender Respiratory: Lungs Clear, No Respiratory Distress Cardiovascular: No Murmur, Bradycardia Capillary Refill: Less Than 3 Seconds Gastrointestinal: non tender, soft (midline scar lower abdomen and right lower quadrant) Extremity: No Calf Tenderness, No Pedal Edema Neurologic/Psychiatric: Alert, Disoriented Skin: Warm/Dry, Pallor Lymphatic: No Adenopathy Results Lab Laboratory Tests 02/19/23 03:35 02/20/23 03:31 Assessment/Plan Assessment/Plan 1 RYLEE CAMARA MD Feb 20, 2023 10:02
--- NOTE | 2023-02-20 10:13 | Progress Note ---
LILIAM RICHARDSON 02/20/23 1013: Subjective Date Seen by a Provider: Feb 20, 2023 Time Seen by a Provider: 07:30 Subjective/Events-last exam Patient is 87 year old man, laying in bed, alert but not oriented. Patient is no longer agitated. Patient is not having abdominal pain. Hgb has remained stable- currently at 9.4. Patient has new consolidations in the medial aspect of the right lung base. No family at bedside. Review of Systems General: No Chills, No Night Sweats, No Fatigue, No Malaise, No Appetite, No Other HEENT: No Head Aches, No Visual Changes, No Eye Pain, No Ear Pain, No Dysphasia, No Sinus Congestion, No Post Nasal Drip, No Sore Throat, No Other Pulmonary: Cough Cardiovascular: No: Chest Pain, Palpitations, Orthopnea, Paroxysmal Noc. Dyspnea, Edema, Lt Headedness, Other Gastrointestinal: No: Nausea, Vomiting, Abdominal Pain, Diarrhea, Constipation, Melena, Hematochezia, Other Genitourinary: No Dysuria, No Frequency, No Incontinence, No Hematuria, No Retention, No Other Musculoskeletal: No: other, neck pain, shoulder pain, arm pain, back pain, hand pain, leg pain, foot pain Neurological: No: Weakness, Numbness, Incoordination, Change in speech, Confusion, Seizures, Other Objective Exam Last Set of Vital Signs Vital Signs Date Time Temp Pulse Resp B/P (MAP) Pulse Ox O2 Delivery O2 Flow Rate FiO2 02/20/23 09:44 Nasal Cannula 3.00 02/20/23 09:00 86 92 02/20/23 07:38 36.2 02/20/23 07:00 27 02/18/23 15:15 21 Capillary Refill : Less Than 3 Seconds I&O Intake and Output 02/19/23 23:59 Intake Total 400 ml Output Total 925 ml Balance -525 ml Intake Oral 400 ml Output Urine Total 925 ml Results Lab Laboratory Tests 02/19/23 12:27: Lab Scanned Report Transfusion Reaction Form 02/20/23 03:31: White Blood Count 6.4, Red Blood Count 2.98L, Hemoglobin 9.4L, Hematocrit 28L, Mean Corpuscular Volume 95, Mean Corpuscular Hemoglobin 32, Mean Corpuscular Hemoglobin Concent 33, Red Cell Distribution Width 17.4H, Platelet Count 182, Mean Platelet Volume 11.3, Immature Granulocyte % (Auto) 1, Neutrophils (%) (Auto) 65, Lymphocytes (%) (Auto) 23, Monocytes (%) (Auto) 10, Eosinophils (%) (Auto) 2, Basophils (%) (Auto) 0, Neutrophils # (Auto) 4.2, Lymphocytes # (Auto) 1.5, Monocytes # (Auto) 0.6, Eosinophils # (Auto) 0.2, Basophils # (Auto) 0.0, Immature Granulocyte # (Auto) 0.0, Sodium Level 141, Potassium Level 3.7, Chloride Level 113H, Carbon Dioxide Level 18L, Anion Gap 10, Blood Urea Nitrogen 27H, Creatinine 0.85, Estimat Glomerular Filtration Rate 85, BUN/Creatinine Ratio 32, Glucose Level 73, Calcium Level 8.9, Phosphorus Level 2.7, Magnesium Level 2.1 Microbiology 02/15/23 MRSA Screen - Final, Complete MRSA not isolated Assessment/Plan Assessment/Plan Assess & Plan/Chief Complaint Melena anemia-likely from upper gi tract pyloric ulcer duodenitis patient admitted to ICU Protonix Swallow Study normal- remove from NPO and start soft foods Continue IV fluids KIARA HIGGINBOTHAM DO 02/21/23 1142: Subjective Subjective/Events-last exam Not oriented. Tolerating diet. Hgb stable. No abdominal pain. Denies n/v fever sweats chills shortness of breath or chest pain. Objective Exam General: Alert, Oriented X3 HEENT: Atraumatic, Mucous Memb Moist/Lolita Neck: Supple, No JVD Lungs: Other (equal chest rise) Heart: Regular Rate, Other (no jvd) Abdomen: Soft, No Tenderness Extremities: No Cyanosis, No Edema, Normal Pulses Skin: No Breakdown Neuro: Normal Speech, Normal Tone Psych/Mental Status: Other (alert but not oriented) Assessment/Plan Assessment/Plan Assess & Plan/Chief Complaint Melena anemia-likely from upper gi tract pyloric ulcer duodenitis patient admitted to ICU Protonix Food per recs of swallow Continue IV fluids hgb stable Supervisory-Addendum Brief Verification & Attestation Participated in pt care: history, MDM, physical Personally performed: exam, history, MDM, supervision of care Care discussed with: Medical Student Procedures: n/a Results interpretation: Verified all documentation Verification and Attestation of Medical Student E/M Service A medical student performed and documented this service in my presence. I reviewed and verified all information documented by the medical student and made modifications to such information, when appropriate. I personally performed the physical exam and medical decision making. Kiara Higginbotham, Feb 20, 2023,11:41 LILIAM RICHARDSON Feb 20, 2023 10:13 KIARA HIGGINBOTHAM DO Feb 21, 2023 11:42
--- NOTE | 2023-02-20 10:32 | Speech Therapy Daily Note ---
Speech Daily Progress Note Subjective Date Seen by Provider: Feb 20, 2023 Time Seen by Provider: 09:10 The patient was lying in bed, awake, upon entrance to his room by the clinician. The patient greeted the clinician appropriately and was agreeable to participation in the dysphagia treatment session. The patient was positioned upright in bed for safe swallowing. The patient is receiving 2L supplemental oxygen via nasal cannula. 02/19/2023: 1. New right basilar consolidations are likely due to pneumonia or aspiration. Per RN, the patient consumed medication without difficulty on this date. Objective The patient was provided three teaspoons of thin liquid, four straw drinks of thin liquid, four teaspoons of mildly thick liquid, six straw drinks of mildly thick liquid (large, consecutive), and multiple teaspoons of puree. Following one of the three teaspoons of thin liquid and one of the four straw drinks of thin liquid, a subtle throat clearing behavior was present. The s/s of suspected aspiration was not overt however present. No s/s of suspected aspiration were present with mildly thick liquids or puree. For increased caution with increased supplemental oxygen needs, the clinician recommends the following: - PU4 with mildly thick liquids, as tolerated. - Fully upright and alert for P.O. intake. - Small, single bites and sips. - Feeding assistance, as needed. - Place medication in puree for administration. - Monitor for s/s of suspected aspiration with P.O. intake. If demonstrated, please contact speech pathology. - Speech pathology to continue monitoring the patient's diet tolerance and safety. The results and recommendations were provided to the RN immediately following completion. Assessment Assessment Current Status: Fair Progress Treatment Plan Continue Plan of Care Speech Short Term Goals Short Term Goals Short Term Goals 1. The patient, staff, and family will follow safe swallowing strategies with 90% accuracy, independently. Time Frame-STG: Two Days. Speech Bleach Maker Goals Nursing Home Goals 1. The patient will tolerate the leasts restrictive diet consistency without s/s of suspected aspiration. Time Frame: Three Days. Speech-Plan Treatment Plan Speech Therapy Treatment Plan: Continue Plan of Care Treatment Duration: Feb 21, 2023 Frequency: 3 times per week Estimated Hrs Per Day: .25 hour per day Rehab Potential: Fair Pt/Family Agrees to Plan: Yes Safety Risks/Education Teaching Recipient: Patient Teaching Methods: Discussion Response to Teaching: Reinforcement Needed Education Topics Provided: Results, Recommendations, Safe Swallowing Precautions Time Speech Therapy Time In: 09:10 Speech Therapy Time Out: 09:25 DATE: Feb 20, 2023 Total Billed Time: 15 Billed Treatment Time 1, DYST VILLA MURPHY Feb 20, 2023 10:32
[2023-02-20] MEDS: DONEPEZIL 10 MG TABLET PO SCH (11:36)
[2023-02-20] MEDS: MEMANTINE 10 MG (NAMENDA) TABLET PO SCH ×2 (11:36→19:54)
[2023-02-20] MEDS: CITALOPRAM 10 MG TABLET PO SCH (11:36)
--- NOTE | 2023-02-20 11:41 | Physical Therapy Evaluation ---
PT Evaluation-General Medical Diagnosis Admission Date Feb 15, 2023 at 13:47 Medical Diagnosis: GI Bleed Onset Date: Feb 15, 2023 Therapy Diagnosis Therapy Diagnosis: generalized weakness/debility Height/Weight Height (Feet): 5 Height (Inches): 9.00 Weight (Pounds): 250 Weight (Ounces): 3.0 Precautions Precautions/Isolations: Fall Prevention, Standard Precautions Referral Physician: Torrey Reason for Referral: Evaluation/Treatment Medical History Pertinent Medical History: COPD, Dementia Current History EMS secondary to c/o weakness Reviewed History: Yes Social History Home: Single Level Current Living Status: Spouse Entry Into Home: Stairs With Railing PT Steps Into Home: 5 Prior Prior Level of Function SCALE: Activities may be completed with or without assistive devices. 1-Yrijotwics-owhexvv completes the activity by him/herself with no assistance from a helper. 5-Set-up or Clean-up Assistance-helper sets up or cleans up; patient completes activity. [place] assists only prior to or following the activity. 4-Supervision or Touching Assistance-helper provides verbal cues and/or touching/steadying and/or contact guard assistance as patient completes activity. Assistance may be provided throughout the activity or intermittently. 3-Partial/Moderate Assistance-helper does LESS THAN HALF the effort. [place] lifts, holds or supports trunk or limbs, but provides less than half the effort. 2-Substantial/Maximal Assistance-helper does MORE THAN HALF the effort. [place] lifts or holds trunk or limbs and provides more than half the effort. 3-Iksegtvax-ojjiol does ALL the effort. Patient does none of the effort to c omplete the activity. Or, the assistance of 2 or more helpers is required for the patient to complete the activity. If activity was not attempted, code reason: 7-Patient Refused. 9-Not Applicable-not attempted and the patient did not perform the activity before the current illness, exacerbation or injury. 10-Not Attempted due to Environmental Limitations-(lack of equipment, weather restraints, etc.). 88-Not Attempted due to Medical Conditions or Safety Concerns. Bed Mobility: 6 Transfers (B,C,W/C): 6 Gait: 6 Stairs: 6 Indoor Mobility (Ambulation): Independent Prior Devices Use: Other-see list below Prior Device Use: cane PT Evaluation-Current Subjective Patient is confused but agrees to therapy. Objective Patient Orientation: Person Attachments: Oxygen, Good Catheter ROM/Strength ROM Lower Extremities bilateral LE WFL Strength Lower Extremities 3-/5 grossly bilateral LE all planes Integumentary/Posture Bladder Incontinence: Good Cath Posture severely kyphotic Neuromuscular (Tone, Coordination, Reflexes) diminished coordination due to weakness/deconditioned Sensory Vision: Wears Glasses Hearing: Impaired Transfers Lying to Sitting/Side of Bed(Q: 2 Sit to Stand (QC): 1 Chair/Nfq-pg-Jiubw Xfer(QC): 1 sit to stand to FWW x 4 sets and able to shuffle to transfer to recliner with assist of 2 to remain up right. Gait Does the Patient Walk?: No and Walking Goal IS indicated Distance: 2 steps Gait Assistive Device: FWW Comments/Gait Description retropulsive/shuffle sequence/no foot clearance or use of UE's with FWW use Balance Sitting Static: Fair Sitting Dynamic: Fair Standing Static: Poor Standing Dynamic: Poor Assessment/Needs Patient will benefit from skilled PT to address functional strength and mobility to improve current LOF to safely return to home at maximum LOF. Rehab Potential: Guarded PT Food Processing Scientist Goals Fdc Goals PT Food Processing Scientist Goals Time Frame: Mar 17, 2023 Roll Left & Right (QC): 4 Sit to Lying (QC): 4 Lying-Sitting on Side/Bed(QC): 4 Sit to Stand (QC): 4 Chair/Djo-ri-Vwmvy Xfer(QC): 4 Toilet Transfer (QC): 4 Walk 10 feet (QC): 4 Walk 50ft with 2 Turns (QC): 4 Walk 150 ft (QC): 4 1 Step (curb) (QC): 3 4 Steps (QC): 3 PT Plan Problem List Problem List: Activity Tolerance, Functional Strength, Safety, Balance, Gait, Transfer, Bed Mobility Treatment/Plan Treatment Plan: Continue Plan of Care Treatment Plan: Bed Mobility, Education, Functional Activity Sofia, Functional Strength, Gait, Safety, Therapeutic Exercise, Transfers Treatment Duration: Mar 17, 2023 Frequency: 5 times per week Estimated Hrs Per Day: .25 hour per day Patient and/or Family Agrees t: Yes Time Time In: 1100 Time Out: 1130 DATE: Feb 20, 2023 Total Billed Treatment Time: 30 [facility] SAVAGE PAZ PT Feb 20, 2023 11:41
--- NOTE | 2023-02-20 11:45 | Occupational Therapy Eval ---
OT Evaluation-General/PLF Medical Diagnosis Admission Date Feb 15, 2023 at 13:47 Medical Diagnosis: GI Bleed Onset Date: Feb 15, 2023 Therapy Diagnosis Therapy Diagnosis: weakness, confusion Height/Weight Height (Feet): 5 Height (Inches): 9.00 Weight (Pounds): 250 Weight (Ounces): 3.0 Precautions Precautions/Isolations: Fall Prevention, Standard Precautions Safety Interventions: Bed Exit Alarm (chair) Referral Referral Reason: Evaluation/Treatment Medical History Additional Medical History 87-year-old male with past medical history of dementia who presents to the emergency department due to syncope. He is unable to provide much history and defers to his . His states that he fell a few days days ago. He has been getting more weak and she thought this was due to his back pain. He had a syncopal episode admission morning so decided to bring him in for evaluation. In the emergency department he was found to have a hemoglobin of 4.6 and was having black tarry stools. His is unaware how long this has been going on but did notice darker stools this morning. He is unable to tell me when this started. He does not believe he has ever had a colonoscopy. He also tells me he has had no surgeries though he has 2 large surgical scars on his abdomen. When asked about these he is unable to recall what surgeries he has had. He was given 2 units of blood and was admitted to the ICU for further management. Reviewed History: Yes Social History Home: Single Level Current Living Status: Significant Other Entry Into Home: Stairs With Railing Steps Into Home: 5 ADL-Prior Level of Function SCALE: Activities may be completed with or without assistive devices. 2-Rkfrwdfeiw-rxkrpim completes the activity by him/herself with no assistance from a helper. 5-Set-up or Clean-up Assistance-helper sets up or cleans up; patient completes activity. [place] assists only prior to or following the activity. 4-Supervision or Touching Assistance-helper provides verbal cues and/or touching/steadying and/or contact guard assistance as patient completes activity. Assistance may be provided throughout the activity or intermittently. 3-Partial/Moderate Assistance-helper does LESS THAN HALF the effort. [place] lifts, holds or supports trunk or limbs, but provides less than half the effort. 2-Substantial/Maximal Assistance-helper does MORE THAN HALF the effort. [place] lifts or holds trunk or limbs and provides more than half the effort. 3-Cwhgegkwo-qgowqy does ALL the effort. Patient does none of the effort to complete the activity. Or, the assistance of 2 or more helpers is required for the patient to complete the activity. If activity was not attempted, code reason: 7-Patient Refused. 9-Not Applicable-not attempted and the patient did not perform the activity before the current illness, exacerbation or injury. 10-Not Attempted due to Environmental Limitations-(lack of equipment, weather restraints, etc.). 88-Not Attempted due to Medical Conditions or Safety Concerns. ADL PLOF Comments At home clothes are laid out for patient, changes clothing irregularly, max encouragement to bath. Self Care: Independent Functional Cognition: Needed Some Help DME/Equipment Comments SPC and WC at home Drive Self: No OT Current Status Subjective Patient thinks he has casts on his legs which are actually SCDs, Left wrist brace d/t old radial fx. Agrees to therapy Mental Status/Objective Patient Orientation: Person, Time Attachments: Good Catheter, IV, Oxygen, SCD's, Telemetry Current Glasses/Contacts: Yes Hearing Aids: No Dentures/Partials: No Hand Dominance: Right Upper Extremity ROM 90 degree shoulder flexion, missing digits left hand, all else WFLS Upper Extremity Coordination fair Upper Extremity Strength -3/5 ADL-Treatment Eating (QC): 5 (see ST) Oral Hygiene (QC): 4 Shower/Bathe Self (QC): 7 Upper Body Dressing (QC): 2 Lower Body Dressing (QC): 1 On/Off Footwear (QC): 1 Toileting Hygiene (QC): 1 extreme forward flexion, poor use of FWW, Education OT Patient Education: Correct positioning, Instructions to caregiver, Modified ADL techniques, Progress toward Goal/Update tx plan, Purpose of tx/functional activities, Reviewed precautions, Rehab process, Safety issues, Transfer techniques Teaching Recipient: Patient, Significant Other Teaching Methods: Demonstration, Discussion Response to Teaching: Unable to Comprehend OT Detention Goals Detention Goals Eating (QC): 5 Oral Hygiene (QC): 5 Toileting Hygiene (QC): 4 Upper Body Dressing (QC): 4 Lower Body Dressing (QC): 4 On/Off Footwear (QC): 4 1=Demonstrate adherence to instructed precautions during ADL tasks. 2=Patient will verbalize/demonstrate understanding of assistive devices/modifications for ADL. 3=Patient will improve strength/tolerance for activity to enable patient to perform ADL's. OT Education/Plan Problem List/Assessment Assessment: Decreased Activ Tolerance, Decreased Safety Aware, Decreased UE Strength, Dependent Transfers, Impaired Cognition, Impaired Coordination, Impaired Funct Balance, Impaired Self-Care Skills Discharge Recommendations Plan/Recommendations: Continue POC Therapy Discharge Recommendati: Post Acute OT Treatment Plan/Plan of Care Treatment,Training & Education: Yes Patient would benefit from OT for education, treatment and training to promote independence in ADL's, mobility, safety and/or upper extremity function for ADL's. Plan of Care: ADL Retraining, Caregiver Training, Cognitive Retraining, Concurrent Therapy, Functional Mobility, Group Exercise/Act as Ind, UE Funct Exercise/Act, UE Neuromus Re-Ed/Coord Treatment Duration: Mar 02, 2023 Frequency: 3 times per week (3-5 times per week) Estimated Hrs Per Day: .25 hour per day Rehab Potential: Fair Remain in recliner w/ chair alarm and SO present , all needs met Time Start Time: 11:00 Stop Time: 11:30 DATE: Feb 20, 2023 Total Time Billed (hr/min): 30 Billed Treatment Time EVM, ADL 30 min GIL TEMPLE OT Feb 20, 2023 11:45
[2023-02-20 15:29] VITALS: BP 90/53
--- NOTE | 2023-02-20 17:49 | Progress Note - Hospitalist ---
Subjective HPI/CC On Admission Date Seen by Provider: Feb 20, 2023 Time Seen by Provider: 09:45 Patient is an 87-year-old male with past medical history of dementia who presents to the emergency department due to syncope. He is unable to provide much history and defers to his . He has no complaints at this time. His states that he fell 2 days ago she believes. He has been getting more weak and she thought this was due to his back pain. He had a syncopal episode this morning so decided to bring him in for evaluation. In the emergency department he was found to have a hemoglobin of 4.6 and was having black tarry stools. His is unaware how long this has been going on but did notice darker stools this morning. He is unable to tell me when this started. He does not believe he has ever had a colonoscopy. He also tells me he has had no surgeries though he has 2 large surgical scars on his abdomen. When asked about these he is unable to recall what surgeries he has had. He was given 2 units of blood and was admitted to the ICU for further management. Subjective/Events-last exam He is laying in bed. He is still feeling weak. He has no complaints. Objective Exam Vital Signs Vital Signs Date Time Temp Pulse Resp B/P (MAP) Pulse Ox O2 Delivery O2 Flow Rate FiO2 02/20/23 15:29 36.7 92 20 90/53 (65) 94 Nasal Cannula 3.00 02/18/23 15:15 21 Capillary Refill : Less Than 3 Seconds General Appearance: No Apparent Distress, Chronically ill Respiratory: No Respiratory Distress, Decreased Breath Sounds Cardiovascular: Regular Rate, Rhythm, No Murmur Gastrointestinal: Normal Bowel Sounds, Soft Extremity: Normal Inspection, No Pedal Edema Neurologic/Psychiatric: Alert, Normal Mood/Affect, Motor Weakness Skin: Normal Color, Warm/Dry Results/Procedures Lab Laboratory Tests 02/20/23 03:31 Patient resulted labs reviewed. Imaging: Reviewed Imaging Report Assessment/Plan Assessment and Plan Assess & Plan/Chief Complaint Hemorrhagic shock, resolved Upper GI bleed, resolved Gastric ulcer Duodenitis Hemoglobin stable Blood pressure stable Hold home antihypertensives and ASA Surgery following EGD revealed ulcer and duodenitis PPI Dementia Delirium Off Precedex Delirium resolved at this time Radius fracture minimally displaced oblique fracture Outpatient follow up with Ortho Abnormal chest xray Right basilar infiltrate, possible aspiration or pneumonia Not septic Speech following No antibiotics at this time, monitor Debility PT/OT SW consulted, will need new SNF referral DVT ppx: SCDs only Diagnosis/Problems Diagnosis/Problems (1) Gastric ulcer with hemorrhage Status: Acute Qualifiers: Gastric ulcer chronicity: acute Qualified Codes: K25.0 - Acute gastric ulcer with hemorrhage (2) Hemorrhagic shock Status: Resolved Resolution Date/Time: 02/20/23 @ 17:54 (3) UGIB (upper gastrointestinal bleed) Status: Resolved Resolution Date/Time: 02/20/23 @ 17:54 (4) HTN (hypertension) Status: Chronic (5) Delirium Status: Acute (6) Dementia Status: Chronic (7) Radius fracture Status: Acute Qualifiers: Encounter type: initial encounter (8) Abnormal chest xray Status: Acute (9) Debility Status: Acute ANOOP PURCELL MD Feb 20, 2023 17:49
[2023-02-20 19:12] VITALS: BP 107/56
[2023-02-20] MEDS: PANTOPRAZOLE 40 MG (PROTONIX) TAB PO SCH (19:54)
[2023-02-20] MEDS: risperiDONE 0.5 MG (RisperDAL) TABLET PO SCH (19:54)
[2023-02-20 23:47] VITALS: BP 125/58
[2023-02-21] MEDS: RT-ALBUTEROL SULF 2.5 MG/3 ML PRE-MIX VIAL INH SCH ×4 (02:30→21:35)
[2023-02-21 03:11] VITALS: BP 144/69
[2023-02-21 04:51] LABS: BASOPHILS % (AUTO) 0 % (0-10); EOSINOPHILS # (AUTO) 0.2 10^3/uL (0.0-0.3); EOSINOPHILS % (AUTO) 3 % (0-10); HEMATOCRIT 27 % (40-54); HEMOGLOBIN 9.2 g/dL (13.3-17.7); LYMPHOCYTES # (AUTO) 1.8 10^3/uL (1.0-4.0); LYMPHOCYTES % (AUTO) 20 % (12-44); MEAN CORPUSCULAR HEMOGLOBIN 32 pg (25-34); MEAN CORPUSCULAR HGB CONC 34 g/dL (32-36); MEAN CORPUSCULAR VOLUME 94 fL (80-99); MEAN PLATELET VOLUME 11.1 fL (9.0-12.2); MONOCYTES # (AUTO) 0.8 10^3/uL (0.0-1.0); MONOCYTES % (AUTO) 9 % (0-12); NEUTROPHILS # (AUTO) 5.8 10^3/uL (1.8-7.8); NEUTROPHILS % (AUTO) 67 % (42-75); PLATELET COUNT 189 10^3/uL (130-400); WHITE BLOOD COUNT 8.8 10^3/uL (4.3-11.0)
[2023-02-21 04:58] LABS: POTASSIUM 3.7 MMOL/L (3.6-5.0)
[2023-02-21 04:59] LABS: CALCIUM 9.2 MG/DL (8.5-10.1)
[2023-02-21 05:04] LABS: CREATININE SERUM 0.84 MG/DL (0.60-1.30); PHOSPHORUS 2.2 MG/DL (2.3-4.7)
[2023-02-21 05:06] LABS: MAGNESIUM 1.9 MG/DL (1.6-2.4)
[2023-02-21] MEDS: POTASSIUM CL 10MEQ/50ML IVPB 50 ML IV SCH (05:07)
[2023-02-21] MEDS: KCL 20 MEQ TAB (K-DUR) PO SCH (05:07)
[2023-02-21] MEDS: MAGNESIUM 1 GM/100 ML IVPB 100 ML IV SCH ×3 (05:08→06:00)
--- NOTE | 2023-02-21 07:51 | Progress Note ---
Subjective Date Seen by a Provider: Feb 21, 2023 Time Seen by a Provider: 07:00 Subjective/Events-last exam Laying in bed. Not oriented. Pt reports he wants to go home and wants to get up and move. Not having abdominal pain. Hgb stable. BUN still elevated. 1 BM overnight. WBC count stable. Focused Exam Respiratory: Crackles Skin: warm/dry Objective Exam Last Set of Vital Signs Vital Signs Date Time Temp Pulse Resp B/P (MAP) Pulse Ox O2 Delivery O2 Flow Rate FiO2 02/21/23 03:11 36.8 99 20 144/69 (94) 97 Nasal Cannula 2.00 2.00 02/18/23 15:15 21 Capillary Refill : Less Than 3 Seconds I&O Intake and Output 02/21/23 00:00 Intake Total 1810 ml Output Total 875 ml Balance 935 ml Intake Oral 1810 ml Output Urine Total 875 ml # Bowel Movements 1 General: Alert Psych/Mental Status: Other (pt is very confused) Results Lab Laboratory Tests 02/21/23 04:45: White Blood Count 8.8, Red Blood Count 2.89L, Hemoglobin 9.2L, Hematocrit 27L, Mean Corpuscular Volume 94, Mean Corpuscular Hemoglobin 32, Mean Corpuscular Hemoglobin Concent 34, Red Cell Distribution Width 16.8H, Platelet Count 189, Mean Platelet Volume 11.1, Immature Granulocyte % (Auto) 1, Neutrophils (%) (Auto) 67, Lymphocytes (%) (Auto) 20, Monocytes (%) (Auto) 9, Eosinophils (%) (Auto) 3, Basophils (%) (Auto) 0, Neutrophils # (Auto) 5.8, Lymphocytes # (Auto) 1.8, Monocytes # (Auto) 0.8, Eosinophils # (Auto) 0.2, Basophils # (Auto) 0.0, Immature Granulocyte # (Auto) 0.1, Sodium Level 142, Potassium Level 3.7, Chloride Level 111H, Carbon Dioxide Level 21, Anion Gap 10, Blood Urea Nitrogen 24H, Creatinine 0.84, Estimat Glomerular Filtration Rate 85, BUN/Creatinine Ratio 29, Glucose Level 107H, Calcium Level 9.2, Phosphorus Level 2.2L, Magnesium Level 1.9 Microbiology 02/15/23 MRSA Screen - Final, Complete MRSA not isolated Assessment/Plan Assessment/Plan Assess & Plan/Chief Complaint melena anemia-likely from upper gi tract pyloric ulcer duodenitis patient transferred to inpatient admit Protonix Transfuse prbc and follow hgb continue npo Iv fluids BRIDGETTE VELÁSQUEZ Feb 21, 2023 07:51
[2023-02-21 08:00] VITALS: BP 146/87
[2023-02-21] MEDS: NICOTINE PATCH REMOVAL TP SCH (08:20)
[2023-02-21] MEDS: NICOTINE 21 MG (NICODERM) PATCH TD SCH (08:21)
[2023-02-21] MEDS: MEMANTINE 10 MG (NAMENDA) TABLET PO SCH ×2 (08:21→20:28)
[2023-02-21] MEDS: PANTOPRAZOLE 40 MG (PROTONIX) TAB PO SCH ×2 (08:21→20:28)
[2023-02-21] MEDS: DONEPEZIL 10 MG TABLET PO SCH (08:21)
[2023-02-21] MEDS: CITALOPRAM 10 MG TABLET PO SCH (08:21)
[2023-02-21] MEDS ORDERED: POTASSIUM BICARB 20 MEQ (EFFER-K) TABLET PO ONE (09:00)
--- NOTE | 2023-02-21 10:38 | Speech Therapy Progress Note ---
Therapy Progress Note Speech pathology attempted skilled treatment on this date. At this time, the patient is being provided care by physical therapy. ST will re-attempt as able. VILLA MURPHY Feb 21, 2023 10:38
--- NOTE | 2023-02-21 11:38 | Progress Note - Surgery ---
BRIDGETTE VELÁSQUEZ 02/21/23 1138: Subjective Date Seen by a Provider: Feb 21, 2023 Time Seen by a Provider: 07:00 Subjective/Events-last exam Patient is 87 year old man, laying in bed, alert but not oriented. Patient is becoming more agitated. Patient states that he wants to go home and wants to get up and walk. Patient is not having abdominal pain. Hgb has remained stable- currently at 9.2. Patient has consolidations in RLL. Review of Systems General: No Chills, No Night Sweats, No Fatigue, No Malaise, No Appetite, No Other HEENT: No Head Aches, No Visual Changes, No Eye Pain, No Ear Pain, No Dysphasia, No Sinus Congestion, No Post Nasal Drip, No Sore Throat, No Other Cardiovascular: No: Chest Pain, Palpitations, Orthopnea, Paroxysmal Noc. Dyspnea, Edema, Lt Headedness, Other Gastrointestinal: No: Nausea, Vomiting, Abdominal Pain, Diarrhea, Constipation, Melena, Hematochezia, Other Genitourinary: No Dysuria, No Frequency, No Incontinence, No Hematuria, No Retention, No Other Musculoskeletal: No: other, neck pain, shoulder pain, arm pain, back pain, hand pain, leg pain, foot pain Neurological: Weakness, Confusion Focused Exam Respiratory: Crackles Skin: warm/dry Objective Exam Vital Signs Date Time Temp Pulse Resp B/P (MAP) Pulse Ox O2 Delivery O2 Flow Rate FiO2 02/21/23 09:18 96 Nasal Cannula 2.00 02/21/23 08:00 36.6 80 17 146/87 (106) 99 Nasal Cannula 2.00 02/21/23 08:00 96 Nasal Cannula 2.00 02/21/23 03:11 36.8 99 20 144/69 (94) 97 Nasal Cannula 2.00 2.00 02/20/23 23:47 36.6 82 20 125/58 (80) 95 Nasal Cannula 2.00 2.00 02/20/23 20:58 95 Nasal Cannula 2.00 02/20/23 20:34 96 Nasal Cannula 2.00 02/20/23 19:12 36.7 99 20 107/56 (73) 96 Nasal Cannula 2.00 02/20/23 15:29 36.7 92 20 90/53 (65) 94 Nasal Cannula 3.00 02/20/23 15:03 92 Nasal Cannula 3.00 02/20/23 12:00 97 110/75 (87) 95 Nasal Cannula 3.00 02/20/23 12:00 96 Nasal Cannula 3.00 I & O 02/21/23 07:00 Intake Total 1260 ml Output Total 875 ml Balance 385 ml Capillary Refill : Less Than 3 Seconds General Appearance: No Apparent Distress; No WD/WN, No Anxious; Chronically ill, Cachetic; No Mild Distress, No Moderate Distress, No Obese, No Severe Distress; Thin; No Other HEENT: PERRL/EOMI; No TMs Normal, No Normal ENT Inspection, No Pharynx Normal, No Moist Mucous Membranes, No Pale Conjunctivae (L), No Pale Conjunctivae (R), No Pharyngeal Erythema, No Photophobia, No Scleral Icterus (L), No Scleral Icterus (R), No TM Abnormal (L), No TM Abnormal (R), No Tonsillar Exudate, No Tonsillar Enlargement, No Other Neck: No Full Range of Motion; Normal Inspection; No Supple, No Carotid Bruit, No JVD, No Limited Range of Motion, No Lymphadenopathy (L), No Lymphadenopathy (R), No Tender Lateral, No Tender Midline, No Thyromegaly, No Other Respiratory: No Chest Non Tender, No Lungs Clear, No Normal Breath Sounds, No No Accessory Muscle Use, No No Respiratory Distress, No Accessory Muscle Use; Crackles; No Decreased Breath Sounds, No Expiration, No Inspiration, No Pleural Rub, No Rales, No Respiratory Distress, No Rhonci, No Stridor, No Wheezing, No Other Cardiovascular: Regular Rate, Rhythm; No No Edema, No No Gallop, No No JVD; No Murmur; No Normal Peripheral Pulses, No Bradycardia, No Diastolic Murmur, No Systolic Murmur, No Extra Beats, No Friction Rub, No Gallop/S3, No Gallop/S4, No Irregularly Irregular, No JVD, No Tachycardia, No Other Gastrointestinal: No normal bowel sounds; non tender, soft (midline scar lower abdomen and right lower quadrant); No no organomegaly, No no pulsatile mass, No abnormal bowel sounds, No distended, No guarding, No rebound, No tenderness, No hernia, No mass, No hepatomegaly, No spleenomegaly, No other Extremity: No Normal Capillary Refill; Normal Inspection; No Normal Range of Motion, No Non Tender, No No Calf Tenderness; No Pedal Edema; No Calf Tenderness, No Inflammation, No Pedal Edema, No Pelvis Stable, No Slow Capillary Refill, No Swelling, No Other Neurologic/Psychiatric: Alert; No Oriented x3, No No Motor/Sensory Deficits; Normal Mood/Affect; No tyre builder II-XII Norm as Tested, No Abnormal Cerebellar Tests, No Abnormal tyre builder II-XII, No Abnormal Gait, No Aphasia, No Depressed Affect; Disoriented; No EOM Palsy, No Facial Droop; Motor Weakness; No Sensory Deficit, No Other Skin: Normal Color, Warm/Dry; No Cool, No Cyanosis, No Damp, No Diaphoresis, No Ecchymosis, No Erythema, No Jaundice, No Mottled, No Pallor, No Petechia, No Rash, No Tattoos/Piercings, No Other Lymphatic: No Adenopathy; No Axilla Node Tender (L), No Axilla Node Tender (R), No Inguinal Node Tender (L), No Inguinal Node Tender (R), No Other Results Lab Laboratory Tests 02/21/23 04:45: White Blood Count 8.8, Red Blood Count 2.89L, Hemoglobin 9.2L, Hematocrit 27L, Mean Corpuscular Volume 94, Mean Corpuscular Hemoglobin 32, Mean Corpuscular Hemoglobin Concent 34, Red Cell Distribution Width 16.8H, Platelet Count 189, Mean Platelet Volume 11.1, Immature Granulocyte % (Auto) 1, Neutrophils (%) (Auto) 67, Lymphocytes (%) (Auto) 20, Monocytes (%) (Auto) 9, Eosinophils (%) (Auto) 3, Basophils (%) (Auto) 0, Neutrophils # (Auto) 5.8, Lymphocytes # (Auto) 1.8, Monocytes # (Auto) 0.8, Eosinophils # (Auto) 0.2, Basophils # (Auto) 0.0, Immature Granulocyte # (Auto) 0.1, Sodium Level 142, Potassium Level 3.7, Chloride Level 111H, Carbon Dioxide Level 21, Anion Gap 10, Blood Urea Nitrogen 24H, Creatinine 0.84, Estimat Glomerular Filtration Rate 85, BUN/Creatinine Ratio 29, Glucose Level 107H, Calcium Level 9.2, Phosphorus Level 2.2L, Magnesium Level 1.9 Microbiology 02/15/23 MRSA Screen - Final, Complete MRSA not isolated Assessment/Plan Assessment/Plan Admission Diagonsis Lower GI Bleed Assessment/Plan Melena anemia-likely from upper gi tract pyloric ulcer duodenitis patient admitted to ICU Protonix Swallow Study normal- remove from NPO and start soft foods Continue IV fluids Monitor WBC count and respiratory status KIARA HIGGINBOTHAM DO 02/21/23 1344: Subjective Subjective/Events-last exam Patient sitting in chair. Tolerating diet. No abdominal pain. Hgb stable. Answers but not oriented. Denies n/v fever sweats chills shortness of breath or chest pain. Objective Exam General Appearance: No Apparent Distress, Chronically ill HEENT: PERRL/EOMI, Normal ENT Inspection Neck: Normal Inspection Respiratory: Chest Non Tender, No Accessory Muscle Use, No Respiratory Distress Cardiovascular: Regular Rate, Rhythm, No JVD Gastrointestinal: non tender, soft (midline scar lower abdomen and right lower quadrant) Extremity: Non Tender, No Calf Tenderness Neurologic/Psychiatric: Alert; No Oriented x3; Disoriented Skin: Normal Color, Warm/Dry Lymphatic: No Adenopathy Assessment/Plan Assessment/Plan Assessment/Plan Melena anemia-likely from upper gi tract pyloric ulcer duodenitis Protonix diet per recs of swallow hgb stable will sign off, call if needed. Supervisory-Addendum Brief Verification & Attestation Participated in pt care: history, MDM, physical Personally performed: exam, history, MDM, supervision of care Care discussed with: Medical Student Procedures: n/a Results interpretation: Verified all documentation Verification and Attestation of Medical Student E/M Service A medical student performed and documented this service in my presence. I reviewed and verified all information documented by the medical student and made modifications to such information, when appropriate. I personally performed the physical exam and medical decision making. Kiara Higginbotham, Feb 21, 2023,13:44 BRIDGETTE VELÁSQUEZ Feb 21, 2023 11:38 KIARA HIGGINBOTHAM DO Feb 21, 2023 13:44
[2023-02-21 11:39] VITALS: BP 105/54
--- NOTE | 2023-02-21 15:05 | Physical Therapy Daily Note ---
PT Daily Note-Current Subjective Patient lying supine in bed upon PT arrival, agreeable to treatment but appears to be confused. Keeps stating "Just hook us up to the water so we can get going." Patient reports 0/10 pain. Pain Section J - Health Conditions 1. Rarely or not at all 2. Occasionally 3. Frequently 4. Almost constantly 8. Unable to answer Pain Effect on Sleep: 1 Pain Interference with Therapy: 1 Pain Interference w/Day-to-Day: 1 Transfers SCALE: Activities may be completed with or without assistive devices. 9-Updnwkpmie-qjbmnjg completes the activity by him/herself with no assistance from a helper. 5-Set-up or Clean-up Assistance-helper sets up or cleans up; patient completes activity. [place] assists only prior to or following the activity. 4-Supervision or Touching Assistance-helper provides verbal cues and/or touching/steadying and/or contact guard assistance as patient completes activity. Assistance may be provided throughout the activity or intermittently. 3-Partial/Moderate Assistance-helper does LESS THAN HALF the effort. [place] lifts, holds or supports trunk or limbs, but provides less than half the effort. 2-Substantial/Maximal Assistance-helper does MORE THAN HALF the effort. [place] lifts or holds trunk or limbs and provides more than half the effort. 0-Fmgswbvpp-gpyhet does ALL the effort. Patient does none of the effort to complete the activity. Or, the assistance of 2 or more helpers is required for the patient to complete the activity. If activity was not attempted, code reason: 7-Patient Refused. 9-Not Applicable-not attempted and the patient did not perform the activity before the current illness, exacerbation or injury. 10-Not Attempted due to Environmental Limitations-(lack of equipment, weather restraints, etc.). 88-Not Attempted due to Medical Conditions or Safety Concerns. Roll Left & Right (QC): 2 Sit to Lying (QC): 2 Lying to Sitting/Side of Bed(Q: 2 Sit to Stand (QC): 2 Chair/Ouj-ha-Hhqlx Xfer(QC): 1 Weight Bearing Right Lower Extremity: Right Full Weight Bearing Left Lower Extremity: Left Full Weight Bearing Gait Training Does the Patient Walk?: No and Walking Goal IS indicated Exercises Supine Ex: Ankle pumps, Quad Set, Heel Slides, Short Arc Quads, Straight leg raise, Hip abd/add Supine Reps: 10 Assessment Current Status: Poor Progress Patient performed LE therapeutic exercise as listed above with AAROM/PROM. Patient requires max-total A for all observed bed mobility and transfers. Patient in chair post treatment with all needs met, nursing notified, call light in hand, and chair alarm activated, sitter outside the room. PT Detention Goals Detention Goals PT Detention Goals Time Frame: Mar 17, 2023 Roll Left & Right (QC): 4 Sit to Lying (QC): 4 Lying-Sitting on Side/Bed(QC): 4 Sit to Stand (QC): 4 Chair/Yso-pd-Evpop Xfer(QC): 4 Toilet Transfer (QC): 4 Walk 10 feet (QC): 4 Walk 50ft with 2 Turns (QC): 4 Walk 150 ft (QC): 4 1 Step (curb) (QC): 3 4 Steps (QC): 3 PT Plan Treatment/Plan Treatment Plan: Continue Plan of Care Treatment Plan: Bed Mobility, Education, Functional Activity Sofia, Functional Strength, Gait, Safety, Therapeutic Exercise, Transfers Treatment Duration: Mar 17, 2023 Frequency: 5 times per week Estimated Hrs Per Day: .25 hour per day Patient and/or Family Agrees t: Yes Safety Risks/Education Patient Education: Transfer Techniques Teaching Recipient: Patient Teaching Methods: Demonstration, Discussion Response to Teaching: Reinforcement Needed Time Time In: 958 Time Out: 1013 DATE: Feb 21, 2023 Total Billed Treatment Time: 15 Total Billed Treatment Visit, ANGEL AVENDAÑO PT Feb 21, 2023 15:05
[2023-02-21 15:26] VITALS: BP 115/56
--- NOTE | 2023-02-21 16:59 | Progress Note - Hospitalist ---
Subjective HPI/CC On Admission Date Seen by Provider: Feb 21, 2023 Time Seen by Provider: 11:00 Patient is an 87-year-old male with past medical history of dementia who presents to the emergency department due to syncope. He is unable to provide much history and defers to his . He has no complaints at this time. His states that he fell 2 days ago she believes. He has been getting more weak and she thought this was due to his back pain. He had a syncopal episode this morning so decided to bring him in for evaluation. In the emergency department he was found to have a hemoglobin of 4.6 and was having black tarry stools. His is unaware how long this has been going on but did notice darker stools this morning. He is unable to tell me when this started. He does not believe he has ever had a colonoscopy. He also tells me he has had no surgeries though he has 2 large surgical scars on his abdomen. When asked about these he is unable to recall what surgeries he has had. He was given 2 units of blood and was admitted to the ICU for further management. Subjective/Events-last exam He is feeling tired this morning. He denies pain. He has no other complaints. He says he is not hungry or thirsty. Objective Exam Vital Signs Vital Signs Date Time Temp Pulse Resp B/P (MAP) Pulse Ox O2 Delivery O2 Flow Rate FiO2 02/21/23 15:26 37.3 87 18 115/56 (75) 98 Nasal Cannula 2.00 02/18/23 15:15 21 Capillary Refill : Less Than 3 Seconds General Appearance: No Apparent Distress, Chronically ill, Thin Respiratory: Lungs Clear, No Respiratory Distress Cardiovascular: Regular Rate, Rhythm, No Murmur Gastrointestinal: Normal Bowel Sounds, Soft Extremity: Normal Inspection, No Pedal Edema Neurologic/Psychiatric: Alert, Motor Weakness Skin: Normal Color, Warm/Dry Results/Procedures Lab Laboratory Tests 02/21/23 04:45 Patient resulted labs reviewed. Imaging: Reviewed Imaging Report Assessment/Plan Assessment and Plan Assess & Plan/Chief Complaint Hemorrhagic shock, resolved Upper GI bleed, resolved Gastric ulcer Duodenitis Hemoglobin stable Blood pressure stable Hold home antihypertensives and ASA Surgery following EGD revealed ulcer and duodenitis PPI Dementia Delirium s/p Precedex Delirium resolved at this time Radius fracture minimally displaced oblique fracture Outpatient follow up with Ortho Abnormal chest xray Right basilar infiltrate, possible aspiration or pneumonia Not septic Speech following No antibiotics at this time, monitor Debility PT/OT SW following, awaiting insurance approval for Meal Sharing Plan discussed with DVT ppx: SCDs only Diagnosis/Problems Diagnosis/Problems (1) Gastric ulcer with hemorrhage Status: Acute Qualifiers: Gastric ulcer chronicity: acute Qualified Codes: K25.0 - Acute gastric ulcer with hemorrhage (2) Hemorrhagic shock Status: Resolved Resolution Date/Time: 02/20/23 @ 17:54 (3) UGIB (upper gastrointestinal bleed) Status: Resolved Resolution Date/Time: 02/20/23 @ 17:54 (4) HTN (hypertension) Status: Chronic (5) Delirium Status: Acute (6) Dementia Status: Chronic (7) Radius fracture Status: Acute Qualifiers: Encounter type: initial encounter (8) Abnormal chest xray Status: Acute (9) Debility Status: Acute ANOOP PURCELL MD Feb 21, 2023 16:59
[2023-02-21] MEDS: SUCRALFATE 1 GM (CARAFATE) TAB PO SCH ×2 (17:30→20:28)
[2023-02-21 19:32] VITALS: BP 116/62
[2023-02-21] MEDS ORDERED: risperiDONE 0.5 MG (RisperDAL) TABLET PO SCH (21:00)
[2023-02-21 23:15] VITALS: BP 137/64
[2023-02-22] MEDS: RT-ALBUTEROL SULF 2.5 MG/3 ML PRE-MIX VIAL INH SCH ×3 (02:10→15:30)
[2023-02-22 03:41] VITALS: BP 123/72
[2023-02-22] MEDS: SUCRALFATE 1 GM (CARAFATE) TAB PO SCH ×3 (05:24→16:04)
[2023-02-22 05:36] LABS: BASOPHILS % (AUTO) 0 % (0-10); EOSINOPHILS # (AUTO) 0.2 10^3/uL (0.0-0.3); EOSINOPHILS % (AUTO) 2 % (0-10); HEMATOCRIT 26 % (40-54); HEMOGLOBIN 8.8 g/dL (13.3-17.7); LYMPHOCYTES % (AUTO) 20 % (12-44); MEAN CORPUSCULAR HEMOGLOBIN 32 pg (25-34); MEAN CORPUSCULAR HGB CONC 34 g/dL (32-36); MEAN CORPUSCULAR VOLUME 95 fL (80-99); MONOCYTES # (AUTO) 0.8 10^3/uL (0.0-1.0); MONOCYTES % (AUTO) 8 % (0-12); NEUTROPHILS # (AUTO) 6.9 10^3/uL (1.8-7.8); NEUTROPHILS % (AUTO) 68 % (42-75); PLATELET COUNT 193 10^3/uL (130-400); WHITE BLOOD COUNT 10.1 10^3/uL (4.3-11.0)
[2023-02-22 05:58] LABS: POTASSIUM 3.8 MMOL/L (3.6-5.0)
[2023-02-22 05:59] LABS: CALCIUM 8.8 MG/DL (8.5-10.1)
[2023-02-22 06:03] LABS: PHOSPHORUS 2.5 MG/DL (2.3-4.7)
[2023-02-22] MEDS: POTASSIUM CL 10MEQ/50ML IVPB 50 ML IV SCH (06:03)
[2023-02-22 06:04] LABS: CREATININE SERUM 0.78 MG/DL (0.60-1.30)
[2023-02-22] MEDS: MAGNESIUM 1 GM/100 ML IVPB 100 ML IV SCH (06:05)
[2023-02-22] MEDS: KCL 20 MEQ TAB (K-DUR) PO SCH (06:06)
[2023-02-22] MEDS ORDERED: KCL 20 MEQ TAB (K-DUR) PO ONE (06:15)
[2023-02-22] MEDS: NICOTINE PATCH REMOVAL TP SCH (06:55)
[2023-02-22 07:10] VITALS: BP 142/83
[2023-02-22] MEDS: CITALOPRAM 10 MG TABLET PO SCH (08:45)
[2023-02-22] MEDS: DONEPEZIL 10 MG TABLET PO SCH (08:45)
[2023-02-22] MEDS: PANTOPRAZOLE 40 MG (PROTONIX) TAB PO SCH (08:45)
[2023-02-22] MEDS: MEMANTINE 10 MG (NAMENDA) TABLET PO SCH (08:45)
[2023-02-22] MEDS: NICOTINE 21 MG (NICODERM) PATCH TD SCH (08:45)
--- NOTE | 2023-02-22 10:10 | Physical Therapy Daily Note ---
PT Daily Note-Current Subjective Patient is pleasant but very confused. Agrees to therapy. Pain Section J - Health Conditions 1. Rarely or not at all 2. Occasionally 3. Frequently 4. Almost constantly 8. Unable to answer Pain Effect on Sleep: 1 Pain Interference with Therapy: 1 Pain Interference w/Day-to-Day: 1 Mental Status Patient Orientation: Confused Transfers SCALE: Activities may be completed with or without assistive devices. 5-Tudeoypojy-iieanmp completes the activity by him/herself with no assistance from a helper. 5-Set-up or Clean-up Assistance-helper sets up or cleans up; patient completes activity. [place] assists only prior to or following the activity. 4-Supervision or Touching Assistance-helper provides verbal cues and/or touching/steadying and/or contact guard assistance as patient completes activity. Assistance may be provided throughout the activity or intermittently. 3-Partial/Moderate Assistance-helper does LESS THAN HALF the effort. [place] lifts, holds or supports trunk or limbs, but provides less than half the effort. 2-Substantial/Maximal Assistance-helper does MORE THAN HALF the effort. [place] lifts or holds trunk or limbs and provides more than half the effort. 3-Jxidncrqh-uefbbe does ALL the effort. Patient does none of the effort to complete the activity. Or, the assistance of 2 or more helpers is required for the patient to complete the activity. If activity was not attempted, code reason: 7-Patient Refused. 9-Not Applicable-not attempted and the patient did not perform the activity before the current illness, exacerbation or injury. 10-Not Attempted due to Environmental Limitations-(lack of equipment, weather restraints, etc.). 88-Not Attempted due to Medical Conditions or Safety Concerns. Lying to Sitting/Side of Bed(Q: 2 Sit to Stand (QC): 2 Chair/Sxu-lu-Zatig Xfer(QC): 2 Weight Bearing Right Lower Extremity: Right Full Weight Bearing Left Lower Extremity: Left Full Weight Bearing Gait Training Distance: 5 steps Gait Assistive Device: FWW max assist with all mobility. Assessment Patient present with severe trunk flexed/kyphotic posture. Patient requires redirection to remain on task and is unaware of safety concerns. Patient up in recliner with chair alarm activated. PT Requirements Engineer Goals Mcfp Goals PT Mcfp Goals Time Frame: Mar 17, 2023 Roll Left & Right (QC): 4 Sit to Lying (QC): 4 Lying-Sitting on Side/Bed(QC): 4 Sit to Stand (QC): 4 Chair/Hkg-zk-Cruoc Xfer(QC): 4 Toilet Transfer (QC): 4 Walk 10 feet (QC): 4 Walk 50ft with 2 Turns (QC): 4 Walk 150 ft (QC): 4 1 Step (curb) (QC): 3 4 Steps (QC): 3 PT Plan Treatment/Plan Treatment Plan: Continue Plan of Care Treatment Plan: Bed Mobility, Education, Functional Activity Sofia, Functional Strength, Gait, Safety, Therapeutic Exercise, Transfers Treatment Duration: Mar 17, 2023 Frequency: 5 times per week Estimated Hrs Per Day: .25 hour per day Patient and/or Family Agrees t: Yes Time Time In: 920 Time Out: 935 DATE: Feb 22, 2023 Total Billed Treatment Time: 15 Total Billed Treatment 1 visit FA 15 min SAVAGE PAZ PT Feb 22, 2023 10:10
--- NOTE | 2023-02-22 10:17 | Occupational Ther Daily Note ---
OT Current Status-Daily Note Subjective Minimal stimuli to arouse patient, agreeable to OT Mental Status/Objective Patient Orientation: Person Attachments: Oxygen ADL-Treatment Agreeable to EOB sitting and face/hair grooming Therapy Code Descriptions/Definitions Functional [place] Measure: 0=Not Assessed/NA 4=Minimal Assistance 1=Total Assistance 5=Supervision or Setup 2=Maximal Assistance 6=Modified [place] 3=Moderate Assistance 7=Complete IndependenceSCALE: Activities may be completed with or without assistive devices. 9-Kxrvubncvm-notinwc completes the activity by him/herself with no assistance from a helper. 5-Set-up or Clean-up Assistance-helper sets up or cleans up; patient completes activity. [place] assists only prior to or following the activity. 4-Supervision or Touching Assistance-helper provides verbal cues and/or touching/steadying and/or contact guard assistance as patient completes activity. Assistance may be provided throughout the activity or intermittently. 3-Partial/Moderate Assistance-helper does LESS THAN HALF the effort. [place] lifts, holds or supports trunk or limbs, but provides less than half the effort. 2-Substantial/Maximal Assistance-helper does MORE THAN HALF the effort. [place] lifts or holds trunk or limbs and provides more than half the effort. 9-Ddezpypqo-oxbsor does ALL the effort. Patient does none of the effort to complete the activity. Or, the assistance of 2 or more helpers is required for the patient to complete the activity. If activity was not attempted, code reason: 7-Patient Refused. 9-Not Applicable-not attempted and the patient did not perform the activity before the current illness, exacerbation or injury. 10-Not Attempted due to Environmental Limitations-(lack of equipment, weather restraints, etc.). 88-Not Attempted due to Medical Conditions or Safety Concerns. Eating (QC): 5 Oral Hygiene (QC): 5 Shower/Bathe Self (QC): 88 Upper Body Dressing (QC): 4 Lower Body Dressing (QC): 1 On/Off Footwear: 1 Toileting Hygiene (QC): 1 Toilet Transfer (QC): 1 Following EOB grooming patient transferred to recliner w/ use of FWW, required 2 person assist,, patien does not follow safety instruction for transfers and mobility. Education OT Patient Education: Correct positioning, Modified ADL techniques, Progress toward Goal/Update tx plan, Purpose of tx/functional activities, Reviewed precautions, Rehab process, Safety issues, Transfer techniques, Use of adapted equipment Teaching Recipient: Patient Teaching Methods: Demonstration Response to Teaching: Verbalize Understanding, Unable to Return Demonstration, Reinforcement Needed OT Fci Goals Fci Goals Eating (QC): 5 Oral Hygiene (QC): 5 Toileting Hygiene (QC): 4 Upper Body Dressing (QC): 4 Lower Body Dressing (QC): 4 On/Off Footwear (QC): 4 1=Demonstrate adherence to instructed precautions during ADL tasks. 2=Patient will verbalize/demonstrate understanding of assistive devices/modifications for ADL. 3=Patient will improve strength/tolerance for activity to enable patient to perform ADL's. OT Education/Plan Problem List/Assessment Assessment: Decreased Activ Tolerance, Decreased Safety Aware, Dependent Transfers, Impaired Cognition, Impaired Coordination, Impaired Funct Balance, Impaired Self-Care Skills Discharge Recommendations Plan/Recommendations: Continue POC Treatment Plan/Plan of Care Patient would benefit from OT for education, treatment and training to promote independence in ADL's, mobility, safety and/or upper extremity function for ADL's. Plan of Care: ADL Retraining, Caregiver Training, Cognitive Retraining, Concurrent Therapy, Functional Mobility, Group Exercise/Act as Ind, UE Funct Exercise/Act, UE Neuromus Re-Ed/Coord Treatment Duration: Mar 02, 2023 Frequency: 3 times per week (3-5 times per week) Estimated Hrs Per Day: .25 hour per day Agreement: Yes Rehab Potential: Guarded chair alarm set, all needs met Time Start Time: 09:20 Stop Time: 09:35 DATE: Feb 22, 2023 Total Time Billed (hr/min): 15 Billed Treatment Time ADL 15 min GIL TEMPLE OT Feb 22, 2023 10:17
[2023-02-22 11:13] VITALS: BP 119/61
[2023-02-22] MEDS ORDERED: DONE10TA41 PO (14:13)
[2023-02-22] MEDS ORDERED: ASPI-1238 PO (14:13)
[2023-02-22] MEDS ORDERED: PANT40TA52 PO (14:13)
[2023-02-22] MEDS ORDERED: SUCR1TAB PO (14:13)
[2023-02-22] MEDS ORDERED: ATOR40TA70 PO (14:13)
[2023-02-22] MEDS ORDERED: ESCI5TAB16 PO (14:13)
[2023-02-22] MEDS ORDERED: MEMA10TA57 PO (14:13)
--- NOTE | 2023-02-22 14:28 | Discharge Summary ---
Discharge Summary Hospital Course Hospital Course Date of Admission: Feb 15, 2023 at 13:47 Admission Diagnosis : Hemorrhagic shock Family Physician/Provider: Brant Moreno MD Date of Discharge: 02/22/23 Discharge Diagnosis: Hemorrhagic shock due to gastric ulcer Hospital Course: Juan Ramon Hall is an 87 year old male who was admitted with hemorrhagic shock due to upper GI bleeding. He required several transfusions. His hemoglobin stabilized. Surgery was consulted and performed EGD which revealed gastric ulcer and duodenitis. He had issues with delirium on underlying dementia which improved prior to discharge. He was also debilitated. He was discharged to [facility] for skilled therapy needs. He should follow up with Dr. Moreno in a week or two. Labs and Pending Lab Test: Laboratory Tests 02/22/23 05:20: White Blood Count 10.1, Red Blood Count 2.77L, Hemoglobin 8.8L, Hematocrit 26L, Mean Corpuscular Volume 95, Mean Corpuscular Hemoglobin 32, Mean Corpuscular Hemoglobin Concent 34, Red Cell Distribution Width 16.3H, Platelet Count 193, Mean Platelet Volume 11.0, Immature Granulocyte % (Auto) 1, Neutrophils (%) (Auto) 68, Lymphocytes (%) (Auto) 20, Monocytes (%) (Auto) 8, Eosinophils (%) (Auto) 2, Basophils (%) (Auto) 0, Neutrophils # (Auto) 6.9, Lymphocytes # (Auto) 2.0, Monocytes # (Auto) 0.8, Eosinophils # (Auto) 0.2, Basophils # (Auto) 0.0, Immature Granulocyte # (Auto) 0.1 02/22/23 05:35: Sodium Level 143, Potassium Level 3.8, Chloride Level 110H, Carbon Dioxide Level 27, Anion Gap 6, Blood Urea Nitrogen 17, Creatinine 0.78, Estimat Glomerular Filtration Rate 87, BUN/Creatinine Ratio 22, Glucose Level 106H, Calcium Level 8.8, Phosphorus Level 2.5, Magnesium Level 2.0 Microbiology 02/15/23 MRSA Screen - Final, Complete MRSA not isolated Home Meds Active Sucralfate 1 Gram Tablet 1 Gm PO ACHS 30 Days Pantoprazole Sodium 40 Mg Tablet.dr 40 Mg PO BID 30 Days Escitalopram Oxalate 5 Mg Tablet 5 Mg PO DAILY 30 Days Memantine HCl 10 Mg Tablet 10 Mg PO BID 30 Days Aspirin EC (Aspirin) 81 Mg Tablet.dr 81 Mg PO HS 30 Days Atorvastatin Calcium 40 Mg Tablet 40 Mg PO HS 30 Days Donepezil HCl 10 Mg Tablet 10 Mg PO DAILY 30 Days Reported Tylenol Extra Strength (Acetaminophen) 500 Mg Tablet 1,000 Mg PO Q6H PRN Losartan Potassium 25 Mg Tablet 25 Mg PO HS Follow Up Appt.: 1-[address] Moreno Skilled NF Admit [place]: [facility] ([place]) I certify that SNF services are required to be given on an inpatient basis because of the above named patient's need for usp care on a continuing basis for the conditions(s) for which he/she was receiving inpatient hospital services prior to his/her transfer to the SNF. Group Home Facility Order: Nursing Services, Manager Loan-Evaluate & Treat, Physical Therapy-Evaluate & Treat, Speech Language-Evaluate & Treat Oxygen Delivery Method: Nasal Cannula Discharge Diet: Semi-Solid Diet (Pureed with thin liquids, meds in puree) Daily Activity as Tolerated: Yes Anoop Purcell Feb 22, 2023 14:17 Discharge Physical Exam General: Alert, No Acute Distress Lungs: Clear to Auscultation, Normal Air Movement Heart: Regular Rate, No Murmurs Abdomen: Normal Bowel Sounds, Soft, No Tenderness Extremities: Other (pedal edema) Psych/Mental Status: Mental Status NL, Mood NL ANOOP PURCELL MD Feb 22, 2023 14:24
[2023-02-22 15:07] VITALS: BP 106/68
[2023-02-22 16:50] VITALS: BP 106/68
== END 2023-02-22 16:38 | DRG 377 ==
LOC: EDUNIT# 11:03 → ER 11:04 → ICU 13:47 → 4TH 02-20 14:03
PROVIDERS: ADMIT Family Medicine; ATTEND Internal Medicine
PROC: 0DB78ZX Excision of Stomach, Pylorus, Via Natural or Artificial Opening Endoscopic, Diagnostic (ICD-10-PCS; 2023-02-16)
PROC: 0DB98ZX Excision of Duodenum, Via Natural or Artificial Opening Endoscopic, Diagnostic (ICD-10-PCS; principal; 2023-02-16 14:03)
DX: K25.4 Chronic or unspecified gastric ulcer with hemorrhage (principal); R57.8 Other shock; G93.40 Encephalopathy, unspecified; D62 Acute posthemorrhagic anemia; F05 Delirium due to known physiological condition; N17.9 Acute kidney failure, unspecified; K29.80 Duodenitis without bleeding; F03.90 Unspecified dementia, unspecified severity, without behavioral disturbance, psychotic disturbance, mood disturbance, and anxiety; D69.6 Thrombocytopenia, unspecified; J44.9 Chronic obstructive pulmonary disease, unspecified; R09.02 Hypoxemia; Z99.81 Dependence on supplemental oxygen; S52.502D Unspecified fracture of the lower end of left radius, subsequent encounter for closed fracture with routine healing; K21.9 Gastro-esophageal reflux disease without esophagitis; H54.3 Unqualified visual loss, both eyes; F17.210 Nicotine dependence, cigarettes, uncomplicated; I10 Essential (primary) hypertension; N40.0 Benign prostatic hyperplasia without lower urinary tract symptoms; Z79.899 Other long term (current) drug therapy; Z88.5 Allergy status to narcotic agent; W19.XXXD Unspecified fall, subsequent encounter
CPT/HCPCS: 36415; 36569; 71045; 73110; 76937; 80048; 80053; 81000; 82274; 83735; 84100; 85007; 85025; 85027; 85610; 85730; 86850; 86900; 86901; 86920; 87081; 88305; 94640; 94760